=== PATIENT | female | born 1940 | race Caucasian/White ===

== ENCOUNTER 2024-03-23 11:50 | Inpatient (IN) | payer MEDICARE, OTHER, SELFPAY ==
[2024-03-23] VITALS (13 sets, daily range): BP systolic 85–156; BP diastolic 64–94; PULSE 68–96; RESP 16–22; TEMP 36.6–36.9; O2SAT 92–100; BMI 24.3; BMI 24.5
--- NOTE | 2024-03-23 11:33 | ECG_ITS ---
APPROVED REPORT Exam: Resting ECG HR:95 bpm ECG Measurements Heart Rate 95 AXES QRSd 117 QRS 14 QT 443 T 114 QTc 496 Conclusion ATRIAL FIBRILLATION LOW QRS VOLTAGE IN PRECORDIAL LEADS [QRS DEFLECTION < 1.0 mV IN CHEST LEADS] MODERATE INTRAVENTRICULAR CONDUCTION DELAY [110+ ms QRS DURATION] NONSPECIFIC ST & T-WAVE ABNORMALITY PROLONGED QT INTERVAL No STEMI Electronically signed by : ARNIE BOO, 03/24/2024 04:29:35
--- NOTE | 2024-03-23 11:52 | HMH.EDGENADL ---
Discharge Plan Disposition Chief Complaint: Abdominal Pain Prescriptions Prescriptions: No Action alprazolam [Xanax] 0.25 mg Tablet 0.25 mg PO BID potassium chloride 20 mEq Tablet,Er Particles/Crystals 20 meq PO DAILY furosemide 20 mg Tablet 20 mg PO DAILY cholecalciferol (vitamin D3) [Vitamin D3] 125 mcg (5,000 unit) Tablet 125 mcg PO DAILY Xarelto 20 mg Tablet 20 mg PO DAILY Clinical Impressions Clinical Impression: Small bowel obstruction Instructions Patient Instructions: DI for Acute Abdominal Pain Print Language Print Language: Omani Discharge ED Provider: Krystal Ghosh General Adult HPI General Chief complaint: Abdominal Pain Stated complaint: N/V, chest pain Time Seen by Provider: 03/23/24 11:52 History of Present Illness HPI narrative: Patient is a 83-year-old with past medical history significant for atrial fibrillation on Xarelto dementia and recent admission for bowel obstruction at outside hospital presents to the emergency department with nausea and vomiting. History obtained per son 2 days ago patient developed significant nausea with periumbilical pain. Patient was discharged from [facility] on 03/20 after 2-day hospitalization for a bowel obstruction using NG tube. Family was offered surgery however declined at that time. Unknown exact prior history of abdominal surgeries patient reports she has a history of stomach cancer and had the cancer removed. Son reports that at the [facility] a few years ago surgeons placed a stent in the colon unsure if it was in the colon or in the vasculature. Patient also reports a history of an appendectomy. Patient last passed gas and had a bowel movement 2 days ago. Send describes the vomit as green and inability to tolerate p.o. over the last 2 days. Pain is severe and isolated around the periumbilical location worse with any intake. No shortness of breath no chest pain no cough or congestion no dysuria no fever. Related Data Home Medications ?Medication ?Instructions ?Recorded ?Confirmed alprazolam 0.25 mg tablet (Xanax) 0.25 mg PO BID 03/23/24 03/23/24 cholecalciferol (vitamin D3) 125 125 mcg PO DAILY 03/23/24 03/23/24 mcg (5,000 unit) tablet (Vitamin D3) furosemide 20 mg tablet 20 mg PO DAILY 03/23/24 03/23/24 potassium chloride 20 mEq 20 meq PO DAILY 03/23/24 03/23/24 tablet,extended release(part/cryst) rivaroxaban 20 mg tablet (Xarelto) 20 mg PO DAILY 03/23/24 03/23/24 Allergies Allergy/AdvReac Type Severity Reaction Status Date / Time chlorhexidine Allergy Unknown Verified 03/23/24 11:57 allergy reaction codeine Allergy Unknown Verified 03/23/24 11:57 allergy reaction ofloxacin Allergy Unknown Verified 03/23/24 11:57 allergy reaction Penicillins Allergy Unknown Verified 03/23/24 11:57 allergy reaction sulfamethoxazole Allergy Unknown Verified 03/23/24 11:57 [From Bactrim] allergy reaction trimethoprim [From Bactrim] Allergy Unknown Verified 03/23/24 11:57 allergy reaction tape Allergy Unknown Uncoded 03/23/24 11:57 allergy reaction PFSH PFSH Disclaimer: The information contained in this section may have been updated after the patient was seen, as this information can be updated by other users. Medical History (Updated 03/23/24 @ 14:39 by Krystal Ghosh MD) Muscle wasting and atrophy, not elsewhere classified, multiple sites Abnormality of gait and mobility Vitamin D deficiency Dementia Anxiety Hyperlipemia History of DVT (deep vein thrombosis) Hypertension Atrial fibrillation Polyarthritis Social History Smoking Status: Never smoker alcohol intake: never current occupational status: retired Travel in the last 8 weeks: None ROS Obtained: Yes All systems reviewed & no additional complaints except as documented Physical Exam General General appearance: alert and in no apparent distress Comment: In no discomfort Head Head exam: atraumatic and normocephalic Eye Eye exam: Present PERRL and EOMI; Absent scleral icterus or jaundice ENT ENT exam: Present normal oropharynx and mucous membranes moist; Absent mucous membranes dry Neck Neck exam: Absent tenderness Chest Chest inspection: Present normal inspection and symmetric chest wall rise Respiratory Respiratory exam: Present normal lung sounds bilaterally; Absent respiratory distress Cardiovascular Cardiovascular exam: Present regular rate, irregular rhythm and other (No lower extremity edema) Abdominal Exam Abdominal exam: Present soft, distention and tenderness (Periumbilical tenderness with guarding no palpable hernia) Extremities Exam Extremities exam: Present normal inspection; Absent tenderness Back Exam Back exam: Present normal inspection; Absent tenderness Neurological Exam Neurological exam: Present alert and oriented X3 (Oriented to name not time or place) Skin Skin exam: Present warm and dry Medical Decision Making Medical Records Screening: Per USPSTF and CDC recommendations, given the prevalence of disease in our region, it is our hospital?s policy to screen for HIV and viral Hepatitis for all patients aged 18 and over and those with ongoing risk factors. Govind Inquiry Pt receiving controlled substance: No Vital Signs: 03/23/24 11:44 03/23/24 12:00 03/23/24 12:30 Temperature 98.4 F Temperature Source Oral Pulse Rate 85 92 H Pulse Rate [Right Brachial] 96 H Respiratory Rate 16 Blood Pressure 137/77 143/89 H Blood Pressure [Right Arm] 139/76 Blood Pressure Mean [Right Arm] 97 Blood Pressure Source [Right Arm] Automatic Cuff Blood Pressure Position [Right Arm] Sitting 02 Sat by Pulse Oximetry 96 98 100 Oxygen Delivery Method Nasal Cannula Room Air Nasal Cannula Oxygen Flow Rate (LPM) 2 03/23/24 13:32 03/23/24 14:00 03/23/24 14:13 Temperature Temperature Source Pulse Rate 88 68 76 Pulse Rate [Right Brachial] Respiratory Rate Blood Pressure 106/69 L 115/64 85/67 L Blood Pressure [Right Arm] Blood Pressure Mean [Right Arm] Blood Pressure Source [Right Arm] Blood Pressure Position [Right Arm] 02 Sat by Pulse Oximetry 100 100 98 Oxygen Delivery Method Nasal Cannula Nasal Cannula Oxygen Flow Rate (LPM) 03/23/24 14:15 03/23/24 14:30 Temperature Temperature Source Pulse Rate 90 78 Pulse Rate [Right Brachial] Respiratory Rate 16 16 Blood Pressure 105/88 L 122/71 Blood Pressure [Right Arm] Blood Pressure Mean [Right Arm] Blood Pressure Source [Right Arm] Blood Pressure Position [Right Arm] 02 Sat by Pulse Oximetry 100 99 Oxygen Delivery Method Nasal Cannula Nasal Cannula Oxygen Flow Rate (LPM) Lab Data Lab Results 03/23/24 11:38: WBC 10.1, RBC 3.21 L, Hgb 11.2 L, Hct 32.5 L, MCV 101.2 H, MCH 34.9 H, MCHC 34.5, RDW 14.5, Plt Count 188, MPV 9.4, Neut % (Auto) 86.1 H, Lymph % (Auto) 8.2 L, [place] % (Auto) 4.9, Eos % (Auto) 0.5, Baso % (Auto) 0.4, Neut # (Auto) 8.7 H, Lymph # (Auto) 0.8, [place] # (Auto) 0.5, Eos # (Auto) 0.1, Baso # (Auto) 0.0, Sodium 133 L, Potassium 2.6 L*, Chloride 89 L, Carbon Dioxide 39 H, Anion Gap 7.6, BUN 23 H, Creatinine 1.00, Estimated Creat Clear 44, Estimated GFR 53 L, Est GFR ( Amer) 64, Glucose 128 H, Calcium 7.9 L, Magnesium 1.2 L, Total Bilirubin 1.0, AST 40 H, ALT 19, Alkaline Phosphatase 50, C-Reactive Protein 83.7 H, Total Protein 6.3, Albumin 3.2 L, Globulin 3.1, Albumin/Globulin Ratio 1.0 L, Lipase 157 03/23/24 12:06: VBG pH 7.45 H, VBG pCO2 55.2 H, VBG pO2 47.7 H, VBG HCO3 37.7 H, VBG Total CO2 39.4 H, VBG O2 Saturation 85.0 H, VBG Base Excess 13.7 H, VBG Lactic Acid 2.1 H 03/23/24 11:38 03/23/24 11:38 Orders (Tests/Meds): ED MEDICATIONS Generic Name Dose Route Start Last Admin Trade Name Freq PRN Reason Stop Dose Admin Potassium Chloride/Water 100 mls @ 100 mls/hr 03/23/24 13:00 03/23/24 14:28 Potassium Chloride 10meq/100ml Ivpb IV 03/23/24 15:59 100 mls/hr Q1H AVA Administration Discontinued Medications Generic Name Dose Route Start Last Admin Trade Name Freq PRN Reason Stop Dose Admin Magnesium Sulfate 2 gm in 50 mls @ 50 mls/hr 03/23/24 12:48 03/23/24 13:19 Magnesium Sulfate 2gm/50ml Premix IV 03/23/24 13:47 50 mls/hr ONCE ONE Administration Iopamidol 80 ml 03/23/24 13:21 03/23/24 13:22 Iopamidol-370 (76%);100ml Bottle IV 03/23/24 13:22 80 ml ONCE ONE Administration Ondansetron HCl 4 mg 03/23/24 12:05 03/23/24 12:36 Ondansetron 4mg/2ml Vial IV 03/23/24 12:06 Not Given ONCE ONE Sodium Chloride 50 ml 03/23/24 13:21 03/23/24 13:22 0.9 % Sodium Chloride 50 Ml Vial IV 03/23/24 13:22 50 ml ONCE ONE Administration Sodium Chloride 10 ml 03/23/24 13:21 03/23/24 13:22 Sodium Chloride 0.9% 10ml Syr (Rad Only) IV 03/23/24 13:22 10 ml ONCE ONE Administration ORDERS Category Date Time Status CT angio abdomen pelvis Stat Cat Scan 03/23/24 12:01 Completed C-Reactive Protein Stat Lab 03/23/24 11:38 Completed Complete Blood Count Auto Diff AMLAB Lab 03/24/24 06:00 Ordered Complete Blood Count Auto Diff Stat Lab 03/23/24 11:38 Results Comprehensive Metabolic Panel AMLAB Lab 03/24/24 06:00 Ordered Comprehensive Metabolic Panel Stat Lab 03/23/24 11:38 Completed HIV (1&2) Antibody Rapid Stat Lab 03/23/24 14:34 Ordered Hep C Ab with Reflex to RNA Stat Lab 03/23/24 14:34 Ordered Lipase Stat Lab 03/23/24 11:38 Completed Magnesium AMLAB Lab 03/24/24 06:00 Ordered Magnesium Stat Lab 03/23/24 11:38 Completed Venous Blood Gas Stat RT 03/23/24 12:06 Completed Medical Decision Narrative: In summary, this 83-year-old female presents to the emergency department today with abdominal pain vomiting. On initial evaluation patient is hemodynamically stable in A-fib that is rate controlled saturating appropriately on room air at baseline mental status and afebrile. Differential diagnosis includes but is not limited to bowel obstruction volvulus ileus intra-abdominal abscess mesenteric ischemia. Based on these concerns, I ordered CBC CMP magnesium CRP lipase lactate EKG. ECG personally interpreted demonstrates prolonged QT atrial fibrillation rate controlled. Patient received 3 rounds of 10 mEq of potassium and 2 g of magnesium for treatment. Labs personally reviewed demonstrate hemoglobin 11.2 no leukocytosis potassium of 2.6, lactate of 2.1, magnesium of 1.[address] imaging personally interpreted demonstrate bowel obstruction with air-fluid levels within the small bowel. NG tube placed. I had an interactive discussion with general surgery who recommended admission to hospital medicine for conservative management at this time. I did interject conversation with hospital medicine recommendations to admit to their service On reassessment patient remains hemodynamically stable at baseline mental status Of note, social determinants of health include poor health literacy. Critical Care Critical Care Time Critical Care Time: No
--- NOTE | 2024-03-23 12:01 | CT_ITS ---
PROCEDURE INFORMATION: Exam: CTA Abdomen and Pelvis With Contrast Exam date and time: 03/23/2024 1:10 PM Age: 83 years old Clinical indication: Abdominal pain; Periumbilical; Additional info: Periumbilical abdominal pain TECHNIQUE: Imaging protocol: Computed tomographic angiography of the abdomen and pelvis with contrast. Exam focused on the arteries. 3D rendering (Not supervised by radiologist): MIP and/or 3D reconstructed images were created by the technologist. Radiation optimization: All CT scans at this facility use at least one of these dose optimization techniques: automated exposure control; mA and/or kV adjustment per patient size (includes targeted exams where dose is matched to clinical indication); or iterative reconstruction. Contrast material: ISOVUE 370; Contrast volume: 80 ml; Contrast route: INTRAVENOUS (IV); COMPARISON: No relevant prior studies available. FINDINGS: Aorta: No aortic aneurysm. No aortic dissection. Celiac trunk and mesenteric arteries: No occlusion or significant stenosis. Renal arteries: No occlusion or significant stenosis. Right iliac arteries: No occlusion or significant stenosis. Left iliac arteries: No occlusion or significant stenosis. Liver: No mass. Gallbladder and biliary ducts: Unremarkable. No calcified stones. No ductal dilation. Pancreas: Pancreatic atrophy. No mass. No ductal dilation. Spleen: Unremarkable. No splenomegaly. Adrenal glands: Unremarkable. No mass. Kidneys and ureters: Bilateral renal atrophy Stomach and bowel: Sutures in the rectosigmoid. Diverticulosis of the rectosigmoid. No diverticulitis. The colon is decompressed. The terminal ileum is decompressed. Most of the small bowel is dilated 4 cm with air-fluid levels consistent with high-grade small bowel obstruction. The transition point is seen in the right hemipelvis. Series 5 image 117-104. Appendix: No evidence of appendicitis. Intraperitoneal space: Unremarkable. No free air. No significant fluid collection. Lymph nodes: Unremarkable. No enlarged lymph nodes. Urinary bladder: Unremarkable. No mass. Reproductive: Unremarkable as visualized. Bones/joints: No fracture Soft tissues: Unremarkable. IMPRESSION: The colon is decompressed. The terminal ileum is decompressed. Most of the small bowel is dilated 4 cm with air-fluid levels consistent with high-grade small bowel obstruction. The transition point is seen in the right hemipelvis. Series 5 image 117-104.
--- NOTE | 2024-03-23 12:07 | PC.NURSE ---
call made to lab to hold green top for VBG. call made to respiratory to go picker and packer VBG from lab.
[2024-03-23 12:13] LABS: VBG Base Excess 13.7 mmol/L (-2.4-2.3); VBG HCO3 37.7 mmol/L (23-30); VBG PH 7.45 mmol/L (7.31-7.41); VBG PO2 47.7 mmol/L (28-40); VBG Total CO2 39.4 mmol/L (23-27)
[2024-03-23 12:15] LABS: VBG PCO2 55.2 mmol/L (35-51)
[2024-03-23 12:16] LABS: Lactate Venous 2.1 mmol/L (0.4-2.0)
[2024-03-23 12:25] LABS: Basophils % 0.4 % (0.1-2.0); Eosinophils # 0.1 K/mm3 (0.0-0.4); Eosinophils % 0.5 % (0.1-12.0); Hematocrit 32.5 % (37.0-47.0); Hemoglobin 11.2 g/dL (12.2-16.2); Lymphocytes # 0.8 K/mm3 (0.7-4.5); Lymphocytes % 8.2 % (10-50); Mean Corpuscular HGB Conc 34.5 g/dL (31.8-35.4); Mean Corpuscular Hemoglobin 34.9 pg (27.0-31.2); Mean Corpuscular Volume 101.2 fl (81-99); Mean Platelet Volume 9.4 fl (7.4-10.4); Monocytes # 0.5 K/mm3 (0.1-1.0); Monocytes % 4.9 % (1.7-9.3); Neutrophils # 8.7 K/mm3 (1.8-7.8); Neutrophils % 86.1 % (37.0-80.0); Platelet Count 188 K/mm3 (142-424); Red Blood Count 3.21 M/mm3 (4.20-5.40); Red Cell Distribution Width 14.5 % (11.5-17.5); White Blood Count 10.1 K/mm3 (4.8-10.8)
[2024-03-23 12:29] LABS: Albumin Level 3.2 g/dl (3.5-5.0); Chloride 89 mmol/L (98-107); Sodium 133 mmol/L (136-145)
[2024-03-23 12:31] LABS: Alanine Aminotransferase 19 U/L (12-78); Anion Gap 7.6 mEq/L (5-15); Aspartate Amino Transferase 40 U/L (14-36); Blood Urea Nitrogen 23 mg/dl (7-17); Carbon Dioxide 39 mmol/L (22.0-30.0); Creatinine Clearance Estimated 44 mL/min (50-200); Estimated Glomerular Filt Rate 53 ml/min (>60); GFR (African American) 64 ML/MIN (>60)
[2024-03-23 12:32] LABS: Alkaline Phosphatase 50 U/L (38-126); Calcium 7.9 mg/dl (8.4-10.2); Globulin 3.1 g/dL (1.3-3.2); Glucose 128 mg/dl (74-100); Lipase 157 U/L (23-300); Magnesium 1.2 mg/dl (1.6-2.3); Total Protein,Serum 6.3 g/dl (6.3-8.2)
[2024-03-23 12:34] LABS: MANUAL DIFFERENTIAL MANUAL DIFFERENTIAL (MANUAL DIFF)
[2024-03-23 12:37] LABS: C-Reactive Protein 83.7 mg/L (0-4)
[2024-03-23 12:46] LABS: Potassium 2.6 mmoL/L (3.5-5.1)
--- NOTE | 2024-03-23 13:17 | PC.NURSE ---
pt back to room from ct
[2024-03-23] MEDS: MAGNESIUM SULFATE IN WATER 2 GM/50 ML PIGGYBACK IV ×2 (13:19→16:36)
[2024-03-23] MEDS: KCl 10mEq/100ml 100 ML 100 MEQ IV ×3 (13:19→16:35)
[2024-03-23] MEDS: SODIUM CHLORIDE 0.9% 10ML SYR (RAD ONLY) 10 ML IV (13:22)
[2024-03-23] MEDS: 0.9 % SODIUM CHLORIDE 50 ML VIAL IV (13:22)
[2024-03-23] MEDS: IOPAMIDOL-370 (76%);100ML BOTTLE 80 ML IV (13:22)
--- NOTE | 2024-03-23 14:23 | PC.NURSE ---
General surgeon being paged to speak with irena chávez
--- NOTE | 2024-03-23 14:24 | PC.NURSE ---
speaking with er at this time
--- NOTE | 2024-03-23 14:38 | PC.NURSE ---
house mover supervisor notified of bed admission.
--- NOTE | 2024-03-23 14:39 | P.HP_ITS ---
History of Present Illness *Admission Date: 03/23/24 *Reason for visit:: nausea and vomiting *History of present illness: Thien is an 83-year-old female with dementia and anxiety and coagulate and who presented to the ER because of concern for bowel obstruction. Recently admitted to [facility] last week for 2 days due to bowel obstruction. Was decompressed with NG, surgery offered but family declined at that time. History of previous abdominal surgeries. Returned back to her nursing facility and developed recurrent nausea, vomiting, periumbilical pain. Been worse over the past 2 days. Afebrile. Stable on room air. On arrival today, found to have elevated CRP, electrolyte disturbances and mild dehydration. CT obtained showing diffuse distended small bowel loops with significant fluid and definitive transition point. Surgery consulted, NG was placed in the ER. Medic ine consulted for admission and further management. Per review, patient was having bilious emesis. Unable to tolerate p.o. medications or nutrition. Pain severe around her umbilicus. Afebrile. Patient pleasant but unable to give much history other than pain. Feeling better since placement of NG. [facility] Disclaimer: The information contained in this section may have been updated after the patient was seen, as this information can be updated by other users. Medical History Muscle wasting and atrophy, not elsewhere classified, multiple sites Abnormality of gait and mobility Vitamin D deficiency Dementia Anxiety Hyperlipemia History of DVT (deep vein thrombosis) Hypertension Atrial fibrillation Polyarthritis Social History Smoking Status: Never smoker alcohol intake: never current occupational status: retired Travel in the last 8 weeks: None Review of Systems Review of Systems Review of systems (narrative): 14 point review of systems performed, pertinent positives and negatives as per HPI Meds Home Medications and Allergies Home Medications ?Medication ?Instructions ?Recorded ?Confirmed ?Type alprazolam 0.25 mg tablet (Xanax) 0.25 mg PO TIDP PRN Anxiety 03/23/24 03/23/24 History atorvastatin 40 mg tablet 40 mg PO HS 03/23/24 03/23/24 History cholecalciferol (vitamin D3) 125 125 mcg PO DAILY 03/23/24 03/23/24 History mcg (5,000 unit) tablet (Vitamin D3) diltiazem HCl 240 mg 240 mg PO DAILY 03/23/24 03/23/24 History capsule,extended release 24 hr furosemide 20 mg tablet 20 mg PO DAILY 03/23/24 03/23/24 History potassium chloride 20 mEq 20 meq PO DAILY 03/23/24 03/23/24 History tablet,extended release(part/cryst) rivaroxaban 15 mg tablet (Xarelto) 15 mg PO QPMWITHMEAL 03/23/24 03/23/24 History New Prescriptions to Start Prescriptions: Allergies Allergy/AdvReac Type Severity Reaction Status Date / Time chlorhexidine Allergy Unknown Verified 03/23/24 11:57 allergy reaction codeine Allergy Unknown Verified 03/23/24 11:57 allergy reaction ofloxacin Allergy Unknown Verified 03/23/24 11:57 allergy reaction Penicillins Allergy Unknown Verified 03/23/24 11:57 allergy reaction sulfamethoxazole Allergy Unknown Verified 03/23/24 11:57 [From Bactrim] allergy reaction trimethoprim [From Bactrim] Allergy Unknown Verified 03/23/24 11:57 allergy reaction tape Allergy Unknown Uncoded 03/23/24 11:57 allergy reaction Exam Data for Last 24 hours Vital signs and Labs for Last 24 Hours: Temp Pulse Resp BP Pulse Ox O2 Del Method O2 Flow Rate 98.4 F 78 16 122/71 99 Nasal Cannula 2 03/23/24 11:44 03/23/24 14:30 03/23/24 14:30 03/23/24 14:30 03/23/24 14:30 03/23/24 14:30 03/23/24 11:44 Laboratory Results - last 24 hr 03/23/24 11:38: WBC 10.1, RBC 3.21 L, Hgb 11.2 L, Hct 32.5 L, MCV 101.2 H, MCH 34.9 H, MCHC 34.5, RDW 14.5, Plt Count 188, MPV 9.4, Neut % (Auto) 86.1 H, Lymph % (Auto) 8.2 L, [place] % (Auto) 4.9, Eos % (Auto) 0.5, Baso % (Auto) 0.4, Neut # (Auto) 8.7 H, Lymph # (Auto) 0.8, [place] # (Auto) 0.5, Eos # (Auto) 0.1, Baso # (Auto) 0.0, Sodium 133 L, Potassium 2.6 L*, Chloride 89 L, Carbon Dioxide 39 H, Anion Gap 7.6, BUN 23 H, Creatinine 1.00, Estimated Creat Clear 44, Estimated GFR 53 L, Est GFR ( Amer) 64, Glucose 128 H, Calcium 7.9 L, Magnesium 1.2 L, Total Bilirubin 1.0, AST 40 H, ALT 19, Alkaline Phosphatase 50, C-Reactive Protein 83.7 H, Total Protein 6.3, Albumin 3.2 L, Globulin 3.1, Albumin/Globulin Ratio 1.0 L, Lipase 157 03/23/24 12:06: VBG pH 7.45 H, VBG pCO2 55.2 H, VBG pO2 47.7 H, VBG HCO3 37.7 H, VBG Total CO2 39.4 H, VBG O2 Saturation 85.0 H, VBG Base Excess 13.7 H, VBG Lactic Acid 2.1 H I & O for Last 24 hours: Intake & Output 03/20/24 03/21/24 03/22/24 03/23/24 23:59 23:59 23:59 23:59 Weight 66.224 kg Constitutional Constitutional: mild distress, average body habitus, chronically ill appearing and cooperative *Routine HEENT Exam Head: Present normocephalic Eye: Present EOMI and PERRL ENT: Present mucous membranes moist Comments: NG in right nare *Routine Neck Exam Neck: Present supple; Absent lymphadenopathy *Routine Respiratory Exam Respiratory: Present CTA bilaterally; Absent rhonchi, wheezes or crackles *Routine Cardiovascular Exam Cardiovascular: Present RRR *Routine Abdominal Exam Abdominal: Present soft, tenderness (Diffuse) and distended; Absent normoactive bowel sounds Comments: Absent bowel sounds *Routine Rectal Exam Rectal:: deferred *Routine Genitalia Exam Genitalia:: deferred *Routine Extremities Exam Extremities: Absent cyanosis, clubbing or edema *Routine Skin Exam Skin: Present warm; Absent rash *Routine Neurological Exam Neurological: Present alert and moving all extremities; Absent altered mental status Comments: Oriented to self only. Answers questions appropriately. Is disoriented to where she is. Assessment and Plan *Assessment and plan (1) Small bowel obstruction: Problem Comment: Ms. Neumann has a small bowel obstruction on exam, history, and CT scan. Since she has just failed nonoperative management she is at high risk for progressing to an operation. I discussed her case with her son who really wants to avoid an operation if we can given her frailty and dementia. I agree with him completely. I will attempt nonoperative management with NG tube decompression and n.p.o. status. She is at high risk for surgery given her frailty and advanced age with dementia. Status: Acute Category: Medical Code(s): K56.609 - Unspecified intestinal obstruction, unspecified as to partial versus complete obstruction (2) Hypokalemia: Status: Acute Category: Medical Code(s): E87.6 - Hypokalemia (3) Hypochloremia: Status: Acute Category: Medical Code(s): E87.8 - Other disorders of electrolyte and fluid balance, not elsewhere classified (4) Hypomagnesemia: Status: Acute Category: Medical Code(s): E83.42 - Hypomagnesemia (5) Dementia: Status: Chronic Category: Medical Code(s): F03.90 - Unspecified dementia, unspecified severity, without behavioral disturbance, psychotic disturbance, mood disturbance, and anxiety (6) Hypertension: Status: Acute Qualifiers: Hypertension type: primary hypertension Qualified Code(s): I10 - Essential (primary) hypertension Category: Medical Code(s): I10 - Essential (primary) hypertension (7) Atrial fibrillation: Status: Chronic Qualifiers: Atrial fibrillation type: longstanding persistent Qualified Code(s): I48.11 - Longstanding persistent atrial fibrillation Category: Medical Code(s): I48.91 - Unspecified atrial fibrillation (8) Anxiety: Status: Chronic Category: Medical Code(s): F41.9 - Anxiety disorder, unspecified (9) Chronic anticoagulation: Status: Chronic Category: Medical Code(s): Z79.01 - intermodal customer service (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 History of previous abdominal surgeries. Presents with small bowel obstruction. NG placed in the ER. Discussed case with ER physician, request admission for medical management and surgical evaluation. I agreed to admit for further treatment. High risk for surgery based on her comorbidities. Hemodynamically stable. Necessitating inpatient treatment. Problems addressed as follows: Small bowel obstruction -High-grade obstruction on personal review of CT with diffuse small bowel dilation and significant fluid. Distended stomach. Definitive transition zone. -NG to low wall suction -Surgery consulted, prescient their recommendations and assistance. Continue NG to low wall suction. Conservative management for now per discussion. Will attempt to avoid surgery given age, comorbidities, and risk. -- ASA 2(E); Aguirre perioperative CRISPIN 0.9%; RCRI 1, 6% mace; all though surgical intervention is not ideal given patient's underlying cognitive impairment, anticoagulation, A-fib, would recommend bridging with Lovenox and holding her NOAC. Appears rate controlled at this time with normal blood pressure and on room air. Optimized for surgery if deemed emergent. Would recommend preoperative EKG. EKG obtained today in the ER shows A-fib but no ischemic changes. Hypokalemia Hypomagnesemia Hypochloremia -Replacing electrolytes with IV fluids. Continue magnesium IV, potassium IV, maintenance fluids with NS +40 of KCl at 100 cc an hour. -Repeat CBC, CMP, magnesium ordered for the morning. -Sodium 133, chloride 89. Potassium 2.6. Magnesium 1.2. -Kidney function appears stable with BUN 23, creatinine 1.0. -White count normal at 10, mild anemia with hemoglobin of 11 A-fib 1 currently rate. Will consider IV metoprolol or diltiazem as needed if heart rate becomes fast/greater than 120. -Holding anticoagulation Anxiety: Initiate lorazepam 0.5 mg IV as needed for severe anxiety every 8 hours. Monitor for side effects/toxicity Holding oral medications including Lipitor, vitamin D, Lasix, potassium. N.p.o. Holding anticoagulation in the setting of possible surgical intervention Further CODE STATUS discussion with family
--- NOTE | 2024-03-23 14:51 | PC.NURSE ---
general surgeon at
--- NOTE | 2024-03-23 14:58 | XR_ITS ---
PROCEDURE INFORMATION: Exam: XR Chest Exam date and time: 03/23/2024 3:03 PM Age: 83 years old Clinical indication: Device placement; Ng tube; Additional info: Ng placement TECHNIQUE: Imaging protocol: Radiologic exam of the chest. Views: 1 view. COMPARISON: CT ANGIO ABDOMEN PELVIS 03/23/2024 1:10 PM FINDINGS: Tubes, catheters and devices: An enteric feeding tube is present, with its tip located in the stomach in good position.. Lungs: Unremarkable. No consolidation. Pleural spaces: Unremarkable. No pleural effusion. No pneumothorax. Heart/Mediastinum: Cardiomegaly Bones/joints: Unremarkable. Other findings: Patient is rotated to the left IMPRESSION: An enteric feeding tube is present, with its tip located in the stomach in good position..
--- NOTE | 2024-03-23 15:02 | P.CONS_ITS ---
History of Present Illness *Admission Date: 03/23/24 *Reason for visit:: Abdominal pain *History of present illness: Mrs. Neumann is an 83-year-old lady presents to the emergency department with nausea vomiting and abdominal pain. She was recently admitted in [place] with a small bowel obstruction. She is present with her son and he states that she has severe dementia. She is currently in a retirement. She had her first real meal after returning to the retirement yesterday evening and shortly thereafter developed a return of her abdominal pain and nausea and vomiting. She has a history of colon cancer and a colectomy about 6 years ago. [facility] Disclaimer: The information contained in this section may have been updated after the patient was seen, as this information can be updated by other users. Medical History (Updated 03/23/24 @ 15:06 by Audie Dick MD) Muscle wasting and atrophy, not elsewhere classified, multiple sites Abnormality of gait and mobility Vitamin D deficiency Dementia Anxiety Hyperlipemia History of DVT (deep vein thrombosis) Hypertension Atrial fibrillation Polyarthritis Social History (Updated 03/23/24 @ 14:39 by Krystal Ghosh MD) Smoking Status: Never smoker alcohol intake: never current occupational status: retired Travel in the last 8 weeks: None Meds Home Medications and Allergies Home Medications ?Medication ?Instructions ?Recorded ?Confirmed ?Type alprazolam 0.25 mg tablet (Xanax) 0.25 mg PO BID 03/23/24 03/23/24 History cholecalciferol (vitamin D3) 125 125 mcg PO DAILY 03/23/24 03/23/24 History mcg (5,000 unit) tablet (Vitamin D3) furosemide 20 mg tablet 20 mg PO DAILY 03/23/24 03/23/24 History potassium chloride 20 mEq 20 meq PO DAILY 03/23/24 03/23/24 History tablet,extended release(part/cryst) rivaroxaban 20 mg tablet (Xarelto) 20 mg PO DAILY 03/23/24 03/23/24 History New Prescriptions to Start Prescriptions: Allergies Allergy/AdvReac Type Severity Reaction Status Date / Time chlorhexidine Allergy Unknown Verified 03/23/24 11:57 allergy reaction codeine Allergy Unknown Verified 03/23/24 11:57 allergy reaction ofloxacin Allergy Unknown Verified 03/23/24 11:57 allergy reaction Penicillins Allergy Unknown Verified 03/23/24 11:57 allergy reaction sulfamethoxazole Allergy Unknown Verified 03/23/24 11:57 [From Bactrim] allergy reaction trimethoprim [From Bactrim] Allergy Unknown Verified 03/23/24 11:57 allergy reaction tape Allergy Unknown Uncoded 03/23/24 11:57 allergy reaction Exam (Inpt) Vital signs and Labs for Last 24 Hours: Temp Pulse Resp BP Pulse Ox O2 Del Method O2 Flow Rate 98.4 F 78 16 122/71 99 Nasal Cannula 2 03/23/24 11:44 03/23/24 14:30 03/23/24 14:30 03/23/24 14:30 03/23/24 14:30 03/23/24 14:30 03/23/24 11:44 Laboratory Results - last 24 hr 03/23/24 11:38: WBC 10.1, RBC 3.21 L, Hgb 11.2 L, Hct 32.5 L, MCV 101.2 H, MCH 34.9 H, MCHC 34.5, RDW 14.5, Plt Count 188, MPV 9.4, Neut % (Auto) 86.1 H, Lymph % (Auto) 8.2 L, [place] % (Auto) 4.9, Eos % (Auto) 0.5, Baso % (Auto) 0.4, Neut # (Auto) 8.7 H, Lymph # (Auto) 0.8, [place] # (Auto) 0.5, Eos # (Auto) 0.1, Baso # (Auto) 0.0, Sodium 133 L, Potassium 2.6 L*, Chloride 89 L, Carbon Dioxide 39 H, Anion Gap 7.6, BUN 23 H, Creatinine 1.00, Estimated Creat Clear 44, Estimated GFR 53 L, Est GFR ( Amer) 64, Glucose 128 H, Calcium 7.9 L, Magnesium 1.2 L, Total Bilirubin 1.0, AST 40 H, ALT 19, Alkaline Phosphatase 50, C-Reactive Protein 83.7 H, Total Protein 6.3, Albumin 3.2 L, Globulin 3.1, Albumin/Globulin Ratio 1.0 L, Lipase 157 03/23/24 12:06: VBG pH 7.45 H, VBG pCO2 55.2 H, VBG pO2 47.7 H, VBG HCO3 37.7 H, VBG Total CO2 39.4 H, VBG O2 Saturation 85.0 H, VBG Base Excess 13.7 H, VBG Lactic Acid 2.1 H I & O for Labs for Last 24 Hours: Intake & Output 03/20/24 03/21/24 03/22/24 03/23/24 23:59 23:59 23:59 23:59 Weight 146 lb Constitutional: mild distress and chronically ill appearing Head: Present normocephalic and atraumatic Neck: Present normal inspection Cardiac: Present Reg Rate and Rhythm GI: Present soft, distention and tenderness (Tenderness on the right hemiabdomen) Results Labs 03/23/24 11:38 03/23/24 11:38 Labs: Laboratory Results - last 24 hr 03/23/24 11:38: WBC 10.1, RBC 3.21 L, Hgb 11.2 L, Hct 32.5 L, MCV 101.2 H, MCH 34.9 H, MCHC 34.5, RDW 14.5, Plt Count 188, MPV 9.4, Neut % (Auto) 86.1 H, Lymph % (Auto) 8.2 L, [place] % (Auto) 4.9, Eos % (Auto) 0.5, Baso % (Auto) 0.4, Neut # (Auto) 8.7 H, Lymph # (Auto) 0.8, [place] # (Auto) 0.5, Eos # (Auto) 0.1, Baso # (Auto) 0.0, Sodium 133 L, Potassium 2.6 L*, Chloride 89 L, Carbon Dioxide 39 H, Anion Gap 7.6, BUN 23 H, Creatinine 1.00, Estimated Creat Clear 44, Estimated GFR 53 L, Est GFR ( Amer) 64, Glucose 128 H, Calcium 7.9 L, Magnesium 1.2 L, Total Bilirubin 1.0, AST 40 H, ALT 19, Alkaline Phosphatase 50, C-Reactive Protein 83.7 H, Total Protein 6.3, Albumin 3.2 L, Globulin 3.1, Albumin/Globulin Ratio 1.0 L, Lipase 157 03/23/24 12:06: VBG pH 7.45 H, VBG pCO2 55.2 H, VBG pO2 47.7 H, VBG HCO3 37.7 H, VBG Total CO2 39.4 H, VBG O2 Saturation 85.0 H, VBG Base Excess 13.7 H, VBG Lactic Acid 2.[address] scan - abdomen: report reviewed Assessment and Plan *Assessment and plan (1) Small bowel obstruction: Problem Comment: Ms. Neumann has a small bowel obstruction on exam, history, and CT scan. Since she has just failed nonoperative management she is at high risk for progressing to an operation. I discussed her case with her son who really wants to avoid an operation if we can given her frailty and dementia. I agree with him completely. I will attempt nonoperative management with NG tube decompression and n.p.o. status. She is at high risk for surgery given her frailty and advanced age with dementia. Status: Acute Category: Medical Code(s): K56.609 - Unspecified intestinal obstruction, unspecified as to partial versus complete obstruction (2) Dementia: Status: Chronic Category: Medical Code(s): F03.90 - Unspecified dementia, unspecified severity, without behavioral disturbance, psychotic disturbance, mood disturbance, and anxiety (3) Atrial fibrillation: Status: Chronic Qualifiers: Atrial fibrillation type: longstanding persistent Qualified Code(s): I 48.11 - Longstanding persistent atrial fibrillation Category: Medical Code(s): I48.91 - Unspecified atrial fibrillation (4) Hypertension: Status: Acute Qualifiers: Hypertension type: primary hypertension Qualified Code(s): I10 - Essential (primary) hypertension Category: Medical Code(s): I10 - Essential (primary) hypertension
[2024-03-23 15:17] LABS: Eosinophils % 1 % (0-3); Lymphocytes % 5 % (10-50); Monocytes % 3 % (2-9); Neutrophils % 91 % (42-76); Platelet Estimate Normal; Total Cells Counted 100
[2024-03-23 15:18] LABS: Anisocytosis 1+; Macrocytosis 1+; Microcytosis 1+; Ovalocytes 1+; Poikilocytosis 1+
--- NOTE | 2024-03-23 15:48 | PC.NURSE ---
arrived by stretcher from ED
[2024-03-23 16:14] LABS: Reflex Lactic Add Lactic Reflex
--- NOTE | 2024-03-23 16:19 | PC.NURSE ---
per magy, okay to have ice chips, nothing else. VO for BARBY
--- NOTE | 2024-03-23 16:20 | XR_ITS ---
PROCEDURE INFORMATION: Exam: XR Abdomen Exam date and time: 03/23/2024 4:51 PM Age: 83 years old Clinical indication: Device placement; Gi device; Nasogastric tube; Additional info: Ng placement TECHNIQUE: Imaging protocol: Radiologic exam of the abdomen. Views: Frontal supine view of the abdomen. 1 View. COMPARISON: CT ANGIO ABDOMEN PELVIS 03/23/2024 1:10 PM FINDINGS: Tubes, catheters and devices: An enteric feeding tube is present, with its tip located in the stomach in good position.. Gastrointestinal tract: Multiple loops of dilated bowel may represent obstruction or ileus. Bones/joints: Unremarkable. IMPRESSION: 1. An enteric feeding tube is present, with its tip located in the stomach in good position.. 2. Multiple loops of dilated bowel may represent obstruction or ileus.
[2024-03-23] MEDS: 0.9% NaCl w/40mEq KCL 1,000 ML 100 ML IV (16:35)
[2024-03-23 16:48] LABS: Lactic Acid Follow Up (RFLX 1) 0.9 mmol/L (0.7-2.1)
--- NOTE | 2024-03-23 18:00 | PC.NURSE ---
pt is alert to self and thinks she is at home, asking this nurse to make sure the doors are locked so she can go to bed. bed alarm on for pt safety. reminders not to touch ng tube or get up by herself is wrote on the white board and she will frequently look up there and read it out loud. pt was anxious when she first got to the floor and asking for her never pills (evans notified) but calmed down once settled and dimming the lights. the pt is currently asleep and resting well. when pt arrived to the floor, ng was at 70 cm to the rt nare and not having output once on suction and after flushing the tube. notified magy. KUB obtained and ng pulled back to 62cm to rt nare (evans aware). ng draining well with 100ml output so far.
[2024-03-24] VITALS: BP 143/74; PULSE 102; RESP 16; TEMP 36.4; O2SAT 95
[2024-03-24] MEDS: 0.9% NaCl w/40mEq KCL 1,000 ML 100 ML IV (03:29)
[2024-03-24 04:00] VITALS: BMI 25.5
[2024-03-24 06:40] LABS: Basophils % 0.3 % (0.1-2.0); Eosinophils # 0.1 K/mm3 (0.0-0.4); Eosinophils % 0.8 % (0.1-12.0); Hematocrit 30.8 % (37.0-47.0); Hemoglobin 10.4 g/dL (12.2-16.2); Lymphocytes # 0.6 K/mm3 (0.7-4.5); Lymphocytes % 8.4 % (10-50); Mean Corpuscular HGB Conc 33.7 g/dL (31.8-35.4); Mean Corpuscular Hemoglobin 34.9 pg (27.0-31.2); Mean Corpuscular Volume 103.8 fl (81-99); Mean Platelet Volume 8.8 fl (7.4-10.4); Monocytes # 0.4 K/mm3 (0.1-1.0); Monocytes % 5.4 % (1.7-9.3); Neutrophils # 6.4 K/mm3 (1.8-7.8); Neutrophils % 85.1 % (37.0-80.0); Platelet Count 191 K/mm3 (142-424); Red Blood Count 2.96 M/mm3 (4.20-5.40); Red Cell Distribution Width 14.4 % (11.5-17.5); White Blood Count 7.5 K/mm3 (4.8-10.8)
[2024-03-24 07:02] LABS: MANUAL DIFFERENTIAL MANUAL DIFFERENTIAL (MANUAL DIFF)
[2024-03-24 07:16] LABS: Albumin Level 2.6 g/dl (3.5-5.0); Chloride 97 mmol/L (98-107)
[2024-03-24 07:17] LABS: Potassium 3.8 mmoL/L (3.5-5.1); Sodium 135 mmol/L (136-145)
[2024-03-24 07:19] LABS: Alanine Aminotransferase 15 U/L (12-78); Alkaline Phosphatase 47 U/L (38-126); Anion Gap 6.8 mEq/L (5-15); Aspartate Amino Transferase 29 U/L (14-36); Bilirubin,Total 0.6 mg/dl (0.2-1.3); Blood Urea Nitrogen 19 mg/dl (7-17); Calcium 7.4 mg/dl (8.4-10.2); Carbon Dioxide 35 mmol/L (22.0-30.0); Creatinine Clearance Estimated 46 mL/min (50-200); Estimated Glomerular Filt Rate 80 ml/min (>60); GFR (African American) 96 ML/MIN (>60); Globulin 2.7 g/dL (1.3-3.2); Glucose 109 mg/dl (74-100); Total Protein,Serum 5.3 g/dl (6.3-8.2)
[2024-03-24 07:20] LABS: Magnesium 1.9 mg/dl (1.6-2.3)
[2024-03-24 08:00] VITALS: BP 155/79; PULSE 90; RESP 18; TEMP 36.4; O2SAT 98
[2024-03-24 10:01] LABS: Lymphocytes % 16 % (10-50); Macrocytosis 1+; Monocytes % 3 % (2-9); Neutrophils % 81 % (42-76); Platelet Estimate Normal; Total Cells Counted 100
--- NOTE | 2024-03-24 10:48 | P.CONPHA_ITS ---
Pharmacy Intervention Comments: MEDICATION RECONCILIATION COMPLETE USING MAR FROM [facility].
--- NOTE | 2024-03-24 10:48 | HMH.PHAINT1 ---
Pharmacy Intervention Comments: MEDICATION RECONCILIATION COMPLETE USING MAR FROM [facility].
[2024-03-24 11:22] LABS: HIV (1&2) Antibody Rapid NONREACTIVE (NONREACTIVE)
--- NOTE | 2024-03-24 11:50 | EXP.SURG.PN ---
Subjective Patient reports: no new complaints and feels better Exam Data for Last 24 hours Vital signs and Labs for Last 24 Hours: Temp Pulse Resp BP Pulse Ox O2 Del Method O2 Flow Rate 97.6 F 90 18 155/79 H 98 Nasal Cannula 1 03/24/24 08:00 03/24/24 08:00 03/24/24 08:00 03/24/24 08:00 03/24/24 08:00 03/24/24 10:56 03/24/24 10:56 Laboratory Results - last 24 hr 03/23/24 06:20: HIV 1&2 Antibody Rapid Nonreactive 03/23/24 11:38: WBC 10.1, RBC 3.21 L, Hgb 11.2 L, Hct 32.5 L, MCV 101.2 H, MCH 34.9 H, MCHC 34.5, RDW 14.5, Plt Count 188, MPV 9.4, Neut % (Auto) 86.1 H, Lymph % (Auto) 8.2 L, [place] % (Auto) 4.9, Eos % (Auto) 0.5, Baso % (Auto) 0.4, Neut # (Auto) 8.7 H, Lymph # (Auto) 0.8, [place] # (Auto) 0.5, Eos # (Auto) 0.1, Baso # (Auto) 0.0, Total Counted 100, Neutrophils % (Manual) 91 H, Lymphocytes % (Manual) 5 L, Monocytes % (Manual) 3, Eosinophils % (Manual) 1, Platelet Estimate Normal, Poikilocytosis 1+, Anisocytosis 1+, Microcytosis 1+, Macrocytosis 1+, Ovalocytes 1+, Sodium 133 L, Potassium 2.6 L*, Chloride 89 L, Carbon Dioxide 39 H, Anion Gap 7.6, BUN 23 H, Creatinine 1.00, Estimated Creat Clear 44, Estimated GFR 53 L, Est GFR ( Amer) 64, Glucose 128 H, Calcium 7.9 L, Magnesium 1.2 L, Total Bilirubin 1.0, AST 40 H, ALT 19, Alkaline Phosphatase 50, C-Reactive Protein 83.7 H, Total Protein 6.3, Albumin 3.2 L, Globulin 3.1, Albumin/Globulin Ratio 1.0 L, Lipase 157 03/23/24 12:06: VBG pH 7.45 H, VBG pCO2 55.2 H, VBG pO2 47.7 H, VBG HCO3 37.7 H, VBG Total CO2 39.4 H, VBG O2 Saturation 85.0 H, VBG Base Excess 13.7 H, VBG Lactic Acid 2.1 H 03/23/24 16:26: Lactate 0.9 03/24/24 06:20: WBC 7.5 D, RBC 2.96 L, Hgb 10.4 L, Hct 30.8 L, MCV 103.8 H, MCH 34.9 H, MCHC 33.7, RDW 14.4, Plt Count 191, MPV 8.8, Neut % (Auto) 85.1 H, Lymph % (Auto) 8.4 L, [place] % (Auto) 5.4, Eos % (Auto) 0.8, Baso % (Auto) 0.3, Neut # (Auto) 6.4, Lymph # (Auto) 0.6 L, [place] # (Auto) 0.4, Eos # (Auto) 0.1, Baso # (Auto) 0.0, Total Counted 100, Neutrophils % (Manual) 81 H, Lymphocytes % (Manual) 16, Monocytes % (Manual) 3, Platelet Estimate Normal, Macrocytosis 1+, Sodium 135 L, Potassium 3.8 D, Chloride 97 L, Carbon Dioxide 35 H, Anion Gap 6.8, BUN 19 H, Creatinine 0.70 D, Estimated Creat Clear 46, Estimated GFR 80, Est GFR ( Amer) 96 D, Glucose 109 H, Calcium 7.4 L, Magnesium 1.9 D, Total Bilirubin 0.6, AST 29 D, ALT 15, Alkaline Phosphatase 47, Total Protein 5.3 L, Albumin 2.6 L D, Globulin 2.7, Albumin/Globulin Ratio 1.0 L I & O for Last 24 hours: Intake & Output 03/21/24 03/22/24 03/23/24 03/24/24 23:59 23:59 23:59 23:59 Intake Total 350 / 553 1291 / 1291 Output Total 450 / 450 1150 / 1150 Balance -100 / 103 141 / 141 Weight 147 lb 2 oz 153 lb 6.4 oz *Routine Abdominal Exam Abdominal: Present soft; Absent tenderness or distended Progress Note: A&P Assessment and plan (1) Small bowel obstruction: Problem details: No gas yet but her exam has greatly improved. I will continue a nonoperative trial for 24 more hours. She will likely need a full liquid diet for a couple of weeks to prevent relapse should she improve without surgery. Status: Acute (2) Hypokalemia: Status: Acute (3) Hypochloremia: Status: Acute (4) Hypomagnesemia: Status: Acute (5) Dementia: Status: Chronic (6) Hypertension: Status: Acute (7) Atrial fibrillation: Status: Chronic (8) Anxiety: Status: Chronic (9) Chronic anticoagulation: Status: Chronic
[2024-03-24] MEDS: LORazepam 2MG/ML VIAL 0.5 MG IV (12:13)
--- NOTE | 2024-03-24 13:44 | P.PN_ITS ---
Subjective *Date: 03/24/24 *Time: 17:48 Interval history: Wearing a liter of oxygen for comfort. No nausea or vomiting. Belly pain doing better. No bowel movement or gas. Medical Exam Vital signs and Labs for Last 24 Hours: Vital Signs Temp Pulse Pulse Resp BP BP Pulse Ox 03/24/24 12:52 03/24/24 10:56 03/24/24 08:00 97.6 F 90 18 155/79 H 98 03/24/24 07:49 03/24/24 07:29 03/24/24 06:37 03/24/24 05:00 03/24/24 02:52 03/24/24 01:00 03/24/24 00:00 97.5 F L 102 H 16 143/74 H 95 03/23/24 23:00 03/23/24 21:00 03/23/24 20:00 98.4 F 90 16 156/81 H 96 03/23/24 19:50 03/23/24 18:26 03/23/24 18:10 03/23/24 17:00 03/23/24 16:00 97.8 F 87 18 127/69 92 L 03/23/24 15:30 98.4 F 90 22 144/76 H 03/23/24 15:29 82 19 152/94 H 96 03/23/24 15:01 91 H 21 128/69 96 03/23/24 15:00 03/23/24 14:30 78 16 122/71 99 03/23/24 14:15 90 16 105/88 L 100 03/23/24 14:13 76 85/67 L 98 03/23/24 14:00 68 115/64 100 O2 Del Method O2 Flow Rate 03/24/24 12:52 Nasal Cannula 1 03/24/24 10:56 Nasal Cannula 1 03/24/24 08:00 Nasal Cannula 1 03/24/24 07:49 Nasal Cannula 1 03/24/24 07:29 Room Air 03/24/24 06:37 Nasal Cannula 1 03/24/24 05:00 Nasal Cannula 1 03/24/24 02:52 Nasal Cannula 1 03/24/24 01:00 Nasal Cannula 1 03/24/24 00:00 Room Air 03/23/24 23:00 Nasal Cannula 1 03/23/24 21:00 Nasal Cannula 2 03/23/24 20:00 Nasal Cannula 2 03/23/24 19:50 Nasal Cannula 2 03/23/24 18:26 Nasal Cannula 2 03/23/24 18:10 Nasal Cannula 2 03/23/24 17:00 Nasal Cannula 2 03/23/24 16:00 Nasal Cannula 2 03/23/24 15:30 Nasal Cannula 2 03/23/24 15:29 Nasal Cannula 03/23/24 15:01 Nasal Cannula 03/23/24 15:00 Nasal Cannula 2 03/23/24 14:30 Nasal Cannula 03/23/24 14:15 Nasal Cannula 03/23/24 14:13 Nasal Cannula 03/23/24 14:00 Intake and Output 03/23/24 03/24/24 03/24/24 23:59 07:59 15:59 Intake Total 1291 / 1291 Output Total 1150 / 1150 0 / 1150 Balance 141 / 141 0 / 141 Intake: Intake, Total IV Amount 1291 / 1291 0.9% NaCl w/40mEq KCL 1,000 ml 1291 / 1291 @ 100 mls/hr IV .Q10H [facility] Rx#: [id number] Output: Output, Urine Amount 600 / 600 0 / 600 Output, Gastric Drainage Amount 550 / 550 Right Nare 550 / 550 Other: Number of Unmeasured Voids 1 1 Weight 66.735 kg 69.581 kg Patient Weight 03/24/24 23:59 Weight 69.581 kg Laboratory Results - last 24 hr 03/23/24 06:20: HIV 1&2 Antibody Rapid Nonreactive 03/23/24 11:38: Total Counted 100, Neutrophils % (Manual) 91 H, Lymphocytes % (Manual) 5 L, Monocytes % (Manual) 3, Eosinophils % (Manual) 1, Platelet Estimate Normal, Poikilocytosis 1+, Anisocytosis 1+, Microcytosis 1+, Macrocytosis 1+, Ovalocytes 1+ 03/23/24 16:26: Lactate 0.9 03/24/24 06:20: WBC 7.5 D, RBC 2.96 L, Hgb 10.4 L, Hct 30.8 L, MCV 103.8 H, MCH 34.9 H, MCHC 33.7, RDW 14.4, Plt Count 191, MPV 8.8, Neut % (Auto) 85.1 H, Lymph % (Auto) 8.4 L, [place] % (Auto) 5.4, Eos % (Auto) 0.8, Baso % (Auto) 0.3, Neut # (Auto) 6.4, Lymph # (Auto) 0.6 L, [place] # (Auto) 0.4, Eos # (Auto) 0.1, Baso # (Auto) 0.0, Total Counted 100, Neutrophils % (Manual) 81 H, Lymphocytes % (Manual) 16, Monocytes % (Manual) 3, Platelet Estimate Normal, Macrocytosis 1+, Sodium 135 L, Potassium 3.8 D, Chloride 97 L, Carbon Dioxide 35 H, Anion Gap 6.8, BUN 19 H, Creatinine 0.70 D, Estimated Creat Clear 46, Estimated GFR 80, Est GFR ( Amer) 96 D, Glucose 109 H, Calcium 7.4 L, Magnesium 1.9 D, Total Bilirubin 0.6, AST 29 D, ALT 15, Alkaline Phosphatase 47, Total Protein 5.3 L, Albumin 2.6 L D, Globulin 2.7, Albumin/Globulin Ratio 1.0 L I & O for Labs for Last 24 Hours: Intake & Output 03/21/24 03/22/24 03/23/24 03/24/24 23:59 23:59 23:59 23:59 Intake Total 350 / 553 1291 / 1291 Output Total 450 / 450 1150 / 1150 Balance -100 / 103 141 / 141 Weight 66.735 kg 69.581 kg Constitutional: Present no acute distress, average body habitus, chronically ill appearing and cooperative Head: Present atraumatic and normocephalic ENT: Present normal exam Comment:: NG in right nare Respiratory: Present normal respiratory effort; Absent rhonchi, wheezes or crackles Cardiac: Present Regular Rate Comment:: Irregularly irregular GI: Present soft and tenderness (Mild, interval improvement.); Absent distention Comments:: Minimal bowel sounds; hypoactive Extremities: Present normal inspection and full ROM Skin: Present intact; Absent erythema Neuro: Present Grossly Intact, alert, awake and moves all extremities Comment:: Oriented to self, pleasantly demented. Assessment and Plan *Assessment and plan (1) Small bowel obstruction: Problem Comment: No gas yet but her exam has greatly improved. I will continue a nonoperative trial for 24 more hours. She will likely need a full liquid diet for a couple of weeks to prevent relapse should she improve without surgery. Status: Acute Category: Medical Code(s): K56.609 - Unspecified intestinal obstruction, unspecified as to partial versus complete obstruction (2) Hypokalemia: Status: Acute Category: Medical Code(s): E87.6 - Hypokalemia (3) Hypochloremia: Status: Acute Category: Medical Code(s): E87.8 - Other disorders of electrolyte and fluid balance, not elsewhere classified (4) Hypomagnesemia: Status: Acute Category: Medical Code(s): E83.42 - Hypomagnesemia (5) Dementia: Status: Chronic Category: Medical Code(s): F03.90 - Unspecified dementia, unspecified severity, without behavioral disturbance, psychotic disturbance, mood disturbance, and anxiety (6) Hypertension: Status: Acute Qualifiers: Hypertension type: primary hypertension Qualified Code(s): I10 - Essential (primary) hypertension Category: Medical Code(s): I10 - Essential (primary) hypertension (7) Atrial fibrillation: Status: Chronic Qualifiers: Atrial fibrillation type: longstanding persistent Qualified Code(s): I48.11 - Longstanding persistent atrial fibrillation Category: Medical Code(s): I48.91 - Unspecified atrial fibrillation (8) Anxiety: Status: Chronic Category: Medical Code(s): F41.9 - Anxiety disorder, unspecified (9) Chronic anticoagulation: Status: Chronic Category: Medical Code(s): Z79.01 - USP (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 History of previous abdominal surgeries. Presents with small bowel obstruction. NG placed in the ER. Discussed case with ER physician, request admission for medical management and surgical evaluation. I agreed to admit for further treatment. High risk for surgery based on her comorbidities. Hemodynamically stable. Necessitating inpatient treatment. Continue medical management. Problems addressed as follows: Small bowel obstruction -High-grade obstruction on personal review of CT with diffuse small bowel dilation and significant fluid. Distended stomach. Definitive transition zone. -NG to low wall suction -Surgery consulted, discussed case again this morning. Continue NG to low wall suction. Continue conservative management. Has had over a liter of output. Will attempt to avoid surgery given age, comorbidities, and risk. No bowel movement as of yet. -- ASA 2(E); Aguirre perioperative CRISPIN 0.9%; RCRI 1, 6% mace; all though surgical intervention is not ideal given patient's underlying cognitive impairment, anticoagulation, A-fib, would recommend bridging with Lovenox and holding her NOAC. Appears rate controlled at this time with normal blood pressure and on room air. Optimized for surgery if deemed emergent. Would recommend preoperative EKG. EKG obtained today in the ER shows A-fib but no ischemic changes. Hypokalemia Hypomagnesemia Hypochloremia -Continue maintenance fluids with NS +40 of KCl at 75 cc an hour. -Repeat CBC, CMP, magnesium ordered for the morning. -Sodium this morning 135, potassium 3.8, magnesium 1.9. Kidney function normal BUN 19, creatinine 0.7. -White count normal at 7.5, hemoglobin stable at 10. Platelets 191. A-fib 1 currently rate. Will consider IV metoprolol or diltiazem as needed if heart rate becomes fast/greater than 120. -Holding anticoagulation Anxiety: lorazepam 0.5 mg IV as needed for severe anxiety every 8 hours. Monitor for side effects/toxicity Holding oral medications including Lipitor, vitamin D, Lasix, potassium. N.p.o. Holding anticoagulation in the setting of possible surgical intervention Further CODE STATUS discussion with family
--- NOTE | 2024-03-24 14:55 | PC.NURSE ---
PT IS RESTING IN BED. ALERT TO SELF ONLY. PT WILL ANSWER QUESTIONS AND FOLLOW COMMANDS. PT HAS TO BE REMINDED FREQUENTLY TO NOT PULL ON NG TUBE. O2 SATURATION HAS MAINTAINED 90-93% ON 1 L NC. TOLERATED SITTING UP IN THE CHAIR FOR SEVERAL HOURS THIS SHIFT. PT HAS BEEN USING ATTENDS AND BSC TO VOID. ABDOMEN SOFT/TENDER WITH HYPOACTIVE BOWEL SOUNDS. PASSING FLATUS. NG TUBE NOTED TO RIGHT NARE @ 62. CONNECTED TO LOW WALL CONTINUOUS SUCTION. 150 ML'S GREEN GASTRIC CONTENTS EMPTIED FROM CANISTER. WILL CONTINUE TO MONITOR.
[2024-03-24 15:35] VITALS: BP 140/92; PULSE 102; RESP 19; TEMP 36.6; O2SAT 97
[2024-03-24 20:00] VITALS: BP 142/67; PULSE 117; RESP 18; TEMP 36.8; O2SAT 98
[2024-03-25] VITALS: BP 147/68; PULSE 101; RESP 18; TEMP 36.6; O2SAT 97
[2024-03-25] MEDS: 0.9% NaCl w/40mEq KCL 1,000 ML 75 ML IV (03:48)
[2024-03-25 04:00] VITALS: BP 151/63; PULSE 96; RESP 18; TEMP 36.7; O2SAT 97; BMI 25.4
--- NOTE | 2024-03-25 05:26 | PC.NURSE ---
Patient has slept all shift. Patient NG tube was unclogged x2 and then drained well through the night. Patient is passing gas and patient expressed that she felt she needed to have a BM but never did. Patient is x2 to the bedside. no other issues
[2024-03-25 06:42] LABS: Alanine Aminotransferase 13 U/L (12-78); Albumin Level 2.4 g/dl (3.5-5.0); Alkaline Phosphatase 46 U/L (38-126); Anion Gap 7.3 mEq/L (5-15); Aspartate Amino Transferase 26 U/L (14-36); Bilirubin,Total 0.7 mg/dl (0.2-1.3); Blood Urea Nitrogen 16 mg/dl (7-17); Calcium 7.4 mg/dl (8.4-10.2); Carbon Dioxide 33 mmol/L (22.0-30.0); Chloride 104 mmol/L (98-107); Creatinine Clearance Estimated 46 mL/min (50-200); Estimated Glomerular Filt Rate 95 ml/min (>60); GFR (African American) 115 ML/MIN (>60); Globulin 2.5 g/dL (1.3-3.2); Glucose 79 mg/dl (74-100); Magnesium 1.4 mg/dl (1.6-2.3); Potassium 4.3 mmoL/L (3.5-5.1); Sodium 140 mmol/L (136-145); Total Protein,Serum 4.9 g/dl (6.3-8.2)
[2024-03-25 06:47] LABS: Basophils % 0.5 % (0.1-2.0); Eosinophils # 0.1 K/mm3 (0.0-0.4); Hematocrit 28.5 % (37.0-47.0); Hemoglobin 9.7 g/dL (12.2-16.2); Lymphocytes # 0.8 K/mm3 (0.7-4.5); Lymphocytes % 12.8 % (10-50); Mean Corpuscular HGB Conc 33.9 g/dL (31.8-35.4); Mean Corpuscular Hemoglobin 35.2 pg (27.0-31.2); Mean Corpuscular Volume 103.8 fl (81-99); Mean Platelet Volume 8.9 fl (7.4-10.4); Monocytes # 0.4 K/mm3 (0.1-1.0); Monocytes % 6.9 % (1.7-9.3); Neutrophils # 4.6 K/mm3 (1.8-7.8); Neutrophils % 78.9 % (37.0-80.0); Platelet Count 189 K/mm3 (142-424); Red Blood Count 2.75 M/mm3 (4.20-5.40); Red Cell Distribution Width 14.4 % (11.5-17.5); White Blood Count 5.9 K/mm3 (4.8-10.8)
[2024-03-25 08:00] VITALS: BP 131/90; PULSE 110; RESP 18; TEMP 36.6; O2SAT 94
[2024-03-25] MEDS: dilTIAZem 25MG/5ML VIAL 10 MG IV ×3 (08:29→20:57)
[2024-03-25] MEDS: MAGNESIUM SULFATE IN WATER 2 GM/50 ML PIGGYBACK IV ×2 (08:29→12:13)
[2024-03-25] MEDS: PANTOPRAZOLE 40MG VIAL 40 MG IV ×2 (08:33→20:57)
--- NOTE | 2024-03-25 08:44 | XR_ITS ---
FINAL REPORT CLINICAL HISTORY: bowel obstruction COMPARISON: 03/23/2024 FINDINGS: Chest: The heart is enlarged. The mediastinum is within normal limits. The lungs are clear. There is no pneumothorax. Osseous structures are unremarkable. Abdomen: AP and upright views of the abdomen were obtained. There is a NG tube present with the tip in the fundus of the stomach. Multiple air-filled distended bowel loops having appearance consistent with small-bowel obstruction, similar to the prior study. No abnormal calcifications are identified. IMPRESSION: No acute cardiopulmonary process. Findings consistent with small-bowel obstruction, similar to the prior study. NG tube tip in the fundus of the stomach. Reviewed, Interpreted and Dictated by Jose Messina III, MD Transcribed by Melissa Duncan Authenticated and [facility]
--- NOTE | 2024-03-25 09:35 | SW/DCPLANNER ---
Addendum entered by Madison Gamboa 04/01/24 15:17: Patient will return to [facility] SN[facility] level of care. I have update Cynthia hansen/ [facility]. Addendum entered by Madison Gamboa 04/01/24 08:14: Per Cynthia hansen/ [facility] patient has been approved to return SNF level of care today. Addendum entered by Madison [place] 03/29/24 11:00: Per Cynthia hansen/ [facility] precert will be started today. Addendum entered by Madison [place] 03/29/24 10:05: Updated patient information has been faxed to Cynthia suarez [facility] to start precert for SNF level of care. Addendum entered by Madison [place] 03/28/24 11:50: I followed up w/ patient and her family at bedside this AM regarding discharge plans. Per family the plan for patient is to return to [facility] SN[facility] level of care. Family stated that they plan for patient to be at [facility] alf. Addendum entered by Madison Gamboa 03/27/24 13:22: Updated patient information has been faxed to Cynthia hansen/ [facility]. Original Note: Per Cynthia hansen/ [facility] this patient is currently SNF level of care. Updated patient information has been faxed. Discharge date is unknown at this time. Patient will require a precert prior to discharge.
--- NOTE | 2024-03-25 10:51 | P.PN_ITS ---
Subjective Narrative: Patient is an 83-year-old female from [place] with a history of dementia, anxiety, hypokalemia, hypertension, atrial fibrillation and DVT on Xarelto. She has a prior history of abdominal surgeries. Exact details are unknown. Apparently she has had surgery for stomach cancer . She had recent admission in [place] for apparent bowel obstruction which was managed nonoperatively. There was consideration reportedly for surgery at that time. She presented to the emergency department at this facility on 03/23/2024 after she was discharged from [facility] on 03/20/2024 with severe abdominal pain, inability to tolerate p.o., bilious vomiting. She underwent CT scan which revealed decompressed colon and terminal ileum with most of the small bowel dilated to 4 cm with air-fluid levels consistent with high-grade partial bowel obstruction with transition point seen in the right hemipelvis. She was admitted for inpatient management for bowel obstruction and consultation was obtained with the surgeon on-call. Patient has been belching. No passing of gas or bowel function. Discussion with family reveals that her symptoms have likely been ongoing for about 2 weeks or even longer. Exam Data for Last 24 hours Vital signs and Labs for Last 24 Hours: Temp Pulse Resp BP Pulse Ox O2 Del Method O2 Flow Rate 98 F 110 H 18 131/90 94 L Nasal Cannula 1 03/25/24 08:00 03/25/24 08:00 03/25/24 08:00 03/25/24 08:00 03/25/24 08:00 03/25/24 09:00 03/25/24 08:00 Laboratory Results - last 24 hr 03/23/24 06:20: HIV 1&2 Antibody Rapid Nonreactive 03/25/24 06:05: WBC 5.9, RBC 2.75 L, Hgb 9.7 L, Hct 28.5 L, MCV 103.8 H, MCH 35.2 H, MCHC 33.9, RDW 14.4, Plt Count 189, MPV 8.9, Neut % (Auto) 78.9, Lymph % (Auto) 12.8, [place] % (Auto) 6.9, Eos % (Auto) 1.0, Baso % (Auto) 0.5, Neut # (Auto) 4.6, Lymph # (Auto) 0.8, [place] # (Auto) 0.4, Eos # (Auto) 0.1, Baso # (Auto) 0.0, Sodium 140, Potassium 4.3, Chloride 104, Carbon Dioxide 33 H, Anion Gap 7.3, BUN 16, Creatinine 0.60, Estimated Creat Clear 46, Estimated GFR 95, Est GFR ( Amer) 115, Glucose 79 D, Calcium 7.4 L, Magnesium 1.4 L D, Total Bilirubin 0.7, AST 26, ALT 13, Alkaline Phosphatase 46, Total Protein 4.9 L, Albumin 2.4 L, Globulin 2.5, Albumin/Globulin Ratio 1.0 L I & O for Last 24 hours: Intake & Output 03/22/24 03/23/24 03/24/24 03/25/24 11:59 11:59 11:59 11:59 Intake Total 1641 / 1641 685 / 685 Output Total 1600 / 1600 250 / 250 Balance 41 / 41 435 / 435 Weight 146 lb 153 lb 6.4 oz 152 lb 6 oz *Routine Abdominal Exam Comments: Slightly distended. Relatively soft. No appreciable tenderness. Progress Note: A&P Assessment and plan (1) Small bowel obstruction: Status: Acute Assessment and plan: Abdominal x-ray today reveals findings consistent with small bowel obstruction similar to prior studies. Highly concerning that her obstruction will be refractory to nonoperative management. Patient carry some appreciable risk with operative intervention however. I will see if some of her records can be obtained from hospitalization at [place] and previous hospitalization at [facility]. (2) Hypokalemia: Status: Acute (3) Hypochloremia: Status: Acute (4) Hypomagnesemia: Status: Acute (5) Dementia: Status: Chronic (6) Hypertension: Status: Acute (7) Atrial fibrillation: Status: Chronic (8) Anxiety: Status: Chronic (9) Chronic anticoagulation: Status: Chronic
--- NOTE | 2024-03-25 11:23 | CA_ITS ---
APPROVED REPORT EXAM: Comprehensive 2D, Doppler, and color-flow Echocardiogram Respiratory Therapy Technician: Candie Castro RVT Ht: 5 ft 4 in Wt: 152lbs BSA: 1.74 BP: 131/90 mmHg Indications: PRE-OP-SBO,A-FIB,HTN,DEMENTIA 2D Dimensions LA Volume 87.60 mL LA Volume Index 50.34 mL/m2 (M/F) 16-34 M-Mode Dimensions RVDd 4.02 cm (0.9-2.6) LA Diam 5.07 cm (1.9-4.0) LVDd 4.56 cm (3.5-5.7) LVDs 3.35 cm (3.5-5.7) IVSd 1.79 cm (0.6-1.1) PWd 1.39 cm (0.6-1.1) EF (Teich) 52.00% FS 26.50% EDV (Teich) 95.40 mL ESV (Teich) 45.80 mL LV Diastology E Decel Time 180 (160-240 msec) E/A Ratio 2.4 Aortic Valve AO Peak GR. 5.40 mmHg Mitral Valve MV E Max Siddhartha. 120.0 (40-130 cm/s) MV A Velocity 50.0 (40-130 cm/s) E/A Ratio 2.40 MV PHT 53.0 ms Pulmonary Valve PV Peak Velocity 107.0 (50-150 cm/s) Tricuspid Valve TR P. Velocity 334.00 cm/s RAP Estimate 10.00 mmHg RVSP 54.60 mmHg Left Ventricle The left ventricle is normal size. The left ventricular systolic function is normal. The left ventricular ejection fraction is within the normal range. There is increased overall thickness. There is normal LV segmental wall motion. Diastolic function is indeterminate. LVEF is 55%. Right Ventricle Right ventricle is moderately dilated. Right ventricle is mildly hypokinetic. Atria Left atrium is severely dilated. Right atrium is severely dilated. There is no Doppler evidence of interatrial shunt. Aortic Valve The aortic valve leaflets are mildly thickened. There is no aortic valvular stenosis. Mild aortic regurgitation. Mitral Valve The mitral valve is mildly thickened. No evidence of mitral valve stenosis. Mild mitral regurgitation. Tricuspid Valve The tricuspid valve leaflets are thin and pliable. Moderate tricuspid regurgitation. RVSP is 30-35 mmHg. Pulmonic Valve The pulmonary valve is normal in structure. Mild pulmonic regurgitation. Great Vessels The aortic root is normal in size. The ascending aorta is not well-visualized. IVC is normal in size and collapses >50% with inspiration. Pericardium There is no pericardial effusion. Other Information Study Quality: Technically Difficult Conclusion Technically difficult study due to poor acoustic windows. Normal LV systolic function. Moderate RV dilation with mild reduction in RV function. Severe biatrial dilation. Moderate TR. Mild AI, mild MR, mild PI. RVSP is 30-35 mmHg. Electronically signed by : Yesenia Short MD 03/25/2024 13:27:17
--- NOTE | 2024-03-25 13:40 | HMH.PTEV ---
Physical Therapy Evaluation Rehab PT IP Evaluation Start: 03/25/24 10:49 Freq: ONCE Status: Active Protocol: Document 03/25/24 13:33 JONNATHAN (Rec: 03/25/24 13:38 JONNATHAN [id number]) Subjective/History History History Per H&P: Thien is an 83- year-old female with dementia and anxiety and coagulate and who presented to the ER because of concern for bowel obstruction. Recently admitted to [place] [facility] last week for 2 days due to bowel obstruction. Was decompressed with NG, surgery offered but family declined at that time. History of previous abdominal surgeries. Returned back to her nursing facility and developed recurrent nausea, vomiting, periumbilical pain. Been worse over the past 2 days. Afebrile. Stable on room air. On arrival today, found to have elevated CRP, electrolyte disturbances and mild dehydration. CT obtained showing diffuse distended small bowel loops with significant fluid and definitive transition point. Surgery consulted, NG was placed in the ER. Medicine consulted for admission and further management. Per review, patient was having bilious emesis. Unable to tolerate p.o. medications or nutrition. Pain severe around her umbilicus. Afebrile. Patient pleasant but unable to give much history other than pain. Feeling better since placement of NG. Subjective Subjective Pt [place] and mildly confused but agreeable to PT evaluation. PLOF: Reports she is IND with mobility, bathing, and dressing. Lives alone but reports her nephew is able to stay with her. New diagnosis of cancer in past 12 No months? Rehab PT IP Eval Objective Appearance Patient Behavior Appropriate,Cooperative Patient Orientation Person,Birthday Difficulty following instructions none Speech Pattern Clear,Appropriate Ambulation Patient Able to Ambulate Yes Ambulation Observation Ambulation Distance (feet) 5 Ambulation Ability Minimal x 1 (25% assist) Balance Ability to Arise Able, uses arms to help Sitting Balance Steady, safe Standing Balance Unsteady Dynamic Sitting Balance Ability Good Dynamic Standing Balance Ability Fair Transfers Bed Transfer Ability Supervision/Stand by Sit to Stand Bed Transfer Ability Minimal x 1 (25% assist) Rehab PT IP prob,goals,plan Problems Date of Evaluation: 03/25/24 PT IP Problems Bed Mobility,Transfers,Gait, Balance,Safety Rehab Potential Rehab Potential Good Equipment Needs Assistive Devices Rolling / Wheeled Walker Plan PT Intervention Plan Bed Mobility,Transfers,Gait, Balance,Self care,Safety, Therapeutic Exercise Other Intervention Plan 1-2 times PT Plan Frequency Daily Duration LOS Discharge Goals Bed Transfer Ability Supervision/Stand by Sit to Stand Chair Transfer Ability Supervision/Stand by Ambulation Assistive Device Rolling Walker Ambulation Distance (feet) 10 Discharge Plan PT Discharge Plan PT recommending d/c home with 24/7 care provided by family. If pt unable to secure 24/7 care at home, pt would benefit from rehab placement. PT is unsure if pt owns RW for ambulation but PT recommending pt use RW for all ambulation d.t impaired balance. Eval Complexity Eval Charge Codes 01518 - Moderate Complexity PHYSICIAN CERTIFICATION: I certify the specified therapy services for Lena Neumann are required, authorized, and reviewed every 30 days.
--- NOTE | 2024-03-25 14:03 | HMH.OTEV ---
OT Inpatient Evaluation Rehab OT IP Evaluation Start: 03/25/24 10:49 Freq: ONCE Status: Active Protocol: Document 03/25/24 13:43 [facility] (Rec: 03/25/24 14:03 [facility] [id number]) Rehab OT IP Assessment Subjective History Pt oriented x2 on arrival. Pt agreeable to engage in evaluation. Pt admitted to [facility] on 03/23/24 due to nausea and vomiting. Pt history and physical report : Thien is an 83-year-old female with dementia and anxiety and coagulate and who presented to the ER because of concern for bowel obstruction . Recently admitted to [place] last week for 2 days due to bowel obstruction. Was decompressed with NG, surgery offered but family declined at that time. History of previous abdominal surgeries. Returned back to her nursing facility and developed recurrent nausea, vomiting, periumbilical pain. Been worse over the past 2 days. Afebrile. Stable on room air. On arrival today, found to have elevated CRP, electrolyte disturbances and mild dehydration. CT obtained showing diffuse distended small bowel loops with significant fluid and definitive transition point. Surgery consulted, NG was placed in the ER. Medicine consulted for admission and further management. Subjective Information provided by pt may not be accurate due to pt being a poor historian. Pt reports that she lives at home alone, but that her nephew will be living with her to provide assistance. Pt reports being independent with all ADLs and IADLs. Pt reports using a walker during functional transfers. Pt no longer engages in driving. Objective Patient Orientation Name,Birthday Right Upper Extremity Gross ROM WFL Left Upper Extremity Gross ROM WFL Bed Mobility bed mobility-scooting,bed mobility - supine/sit Assist Level Contact Guard/Hand Hold Transfer Training Sit/Stand Transfer Assist Level Moderate x 1 (50% assist) Decrease in Endurance Yes Rehab OT IP prob,goals,plan Problems Date of Evaluation: 03/25/24 OT IP Problems Bed Mobility,Transfers,Balance ,Self care,Safety Rehab Potential Rehab Potential Good Equipment Needs Assistive Devices Rolling / Wheeled Walker Plan OT intervention Plan Bed Mobility,Transfers,Balance ,Self care,Safety,Therapeutic Exercise OT Plan Frequency Daily Duration LOS Discharge Goals Bed Mobility Ability Standby Assistance Sit to Stand Chair Transfer Ability Minimal x 2 (25% assist) Chair Transfer Ability Minimal x 1 (25% assist) Chair Transfer Technique Sit to/from Ambulatory Chair Transfer Assistive Devices Rolling Walker Feeding Ability Assist with Tray Set Up Lower Body Dressing Ability Moderate Assistance Upper Body Dressing Ability Moderate Assistance Bathing Ability Moderate Assistance Performing Toilet Hygiene Ability Moderate Assistance Overall Commode/Toilet Transfer Ability Minimal Assistance Commode/Toilet Transfer Technique Sit to/from Ambulatory Commode/Toilet Transfer Assistive Grab Bars Devices Oral Care Assist Minimal Assistance Decrease in Endurance No Discharge Plan OT Discharge Plan Pt will continue to be seen for OT services while at [facility]. Once medically stable, pt would benefit most from short- term rehab to address functional decline. Continued skilled services are important to improve safety, balance, endurance, ADL independence, and functional transfers to reach PLOF. Eval Complexity Eval Charge Codes 06614 - Moderate Complexity PHYSICIAN CERTIFICATION: I certify the specified therapy services for Lena Neumann are required, authorized, and reviewed every 30 days.
[2024-03-25 14:20] VITALS: BP 128/76; PULSE 112
[2024-03-25 15:30] VITALS: BMI 25.3
[2024-03-25 16:00] VITALS: BP 126/72; PULSE 99; RESP 18; TEMP 36.4; O2SAT 92
--- NOTE | 2024-03-25 17:31 | P.PN_ITS ---
Subjective *Date: 03/25/24 *Time: 20:36 Interval history: Continues to have no bowel movements. Reported flatus once, but not witnessed. Belly still distended. NG in place with good drainage. No cristian emesis. Stable on 2 L oxygen for comfort. Family at bedside today, would like to pr oceed with intervention if need be. Do not want patient to continue to suffer being NPO. Discussed risks and benefits. Concern the patient is an elevated risk for intervention, discussed further workup including echo to evaluate EF. Will also obtain records from [facility] from previous procedures and hospitalizations. Medical Exam Vital signs and Labs for Last 24 Hours: Vital Signs Temp Pulse Resp BP Pulse Ox O2 Del Method O2 Flow Rate 03/25/24 16:00 97.6 F 99 H 18 126/72 92 L Nasal Cannula 1 03/25/24 15:00 Nasal Cannula 03/25/24 14:20 112 H 128/76 03/25/24 13:00 Nasal Cannula 03/25/24 11:00 Nasal Cannula 03/25/24 09:00 Nasal Cannula 03/25/24 08:00 Nasal Cannula 1 03/25/24 08:00 98 F 110 H 18 131/90 94 L Nasal Cannula 1 03/25/24 06:43 Room Air 03/25/24 05:00 Nasal Cannula 1 03/25/24 04:00 98.1 F 96 H 18 151/63 H 97 Nasal Cannula 2 03/25/24 03:00 Nasal Cannula 1 03/25/24 00:49 Nasal Cannula 1 03/25/24 00:00 97.8 F 101 H 18 147/68 H 97 Nasal Cannula 2 03/24/24 23:00 Nasal Cannula 1 03/24/24 21:00 Nasal Cannula 1 03/24/24 20:00 98.3 F 117 H 18 142/67 H 98 Nasal Cannula 2 03/24/24 20:00 Nasal Cannula 1 03/24/24 18:02 Nasal Cannula 1 Intake and Output 03/25/24 03/25/24 03/25/24 07:59 15:59 23:59 Intake Total 0 / 0 Output Total 250 / 250 0 / 250 Balance -250 / -250 0 / -250 Intake: Intake, Oral Amount 0 / 0 Output: Output, Urine Amount 0 / 0 0 / 0 Output, Gastric Drainage Amount 250 / 250 Right Nare 250 / 250 Other: Number of Unmeasured Voids 1 1 Weight 69.116 kg 69 kg Patient Weight 03/25/24 23:59 Weight 69 kg Laboratory Results - last 24 hr 03/25/24 06:05: WBC 5.9, RBC 2.75 L, Hgb 9.7 L, Hct 28.5 L, MCV 103.8 H, MCH 3 5.2 H, MCHC 33.9, RDW 14.4, Plt Count 189, MPV 8.9, Neut % (Auto) 78.9, Lymph % (Auto) 12.8, [place] % (Auto) 6.9, Eos % (Auto) 1.0, Baso % (Auto) 0.5, Neut # (Auto) 4.6, Lymph # (Auto) 0.8, [place] # (Auto) 0.4, Eos # (Auto) 0.1, Baso # (Auto) 0.0, Sodium 140, Potassium 4.3, Chloride 104, Carbon Dioxide 33 H, Anion Gap 7.3, BUN 16, Creatinine 0.60, Estimated Creat Clear 46, Estimated GFR 95, Est GFR ( Amer) 115, Glucose 79 D, Calcium 7.4 L, Magnesium 1.4 L D, Total Bilirubin 0.7, AST 26, ALT 13, Alkaline Phosphatase 46, Total Protein 4.9 L, Albumin 2.4 L, Globulin 2.5, Albumin/Globulin Ratio 1.0 L I & O for Labs for Last 24 Hours: Intake & Output 03/22/24 03/23/24 03/24/24 03/25/24 23:59 23:59 23:59 23:59 Intake Total 350 / 553 1975 0 / 0 Output Total 450 / 450 1150 / 1400 250 / 250 Balance -100 / 103 826 / 576 -250 / -250 Weight 66.735 kg 69.581 kg 69 kg Constitutional: Present no acute distress, average body habitus, chronically ill appearing and cooperative Head: Present atraumatic and normocephalic ENT: Present normal exam Comment:: NG in right nare Respiratory: Present normal respiratory effort; Absent rhonchi, wheezes or crackles Cardiac: Present Regular Rate Comment:: Irregularly irregular GI: Present soft and tenderness (Mild, diffuse); Absent distention Comments:: Minimal bowel sounds; hypoactive Extremities: Present normal inspection and full ROM Skin: Present intact; Absent erythema Neuro: Present Grossly Intact, alert, awake and moves all extremities Comment:: Oriented to self, pleasantly demented. Assessment and Plan *Assessment and plan (1) Small bowel obstruction: Status: Acute Category: Medical Code(s): K56.609 - Unspecified intestinal obstruction, unspecified as to partial versus c omplete obstruction (2) Hypokalemia: Status: Acute Category: Medical Code(s): E87.6 - Hypokalemia (3) Hypochloremia: Status: Acute Category: Medical Code(s): E87.8 - Other disorders of electrolyte and fluid balance, not elsewhere classified (4) Hypomagnesemia: Status: Acute Category: Medical Code(s): E83.42 - Hypomagnesemia (5) Dementia: Status: Chronic Category: Medical Code(s): F03.90 - Unspecified dementia, unspecified severity, without behavioral disturbance, psychotic disturbance, mood disturbance, and anxiety (6) Hypertension: Status: Acute Qualifiers: Hypertension type: primary hypertension Qualified Code(s): I10 - Essential (primary) hypertension Category: Medical Code(s): I10 - Essential (primary) hypertension (7) Atrial fibrillation: Status: Chronic Qualifiers: Atrial fibrillation type: longstanding persistent Qualified Code(s): I48.11 - Longstanding persistent atrial fibrillation Category: Medical Code(s): I48.91 - Unspecified atrial fibrillation (8) Anxiety: Status: Chronic Category: Medical Code(s): F41.9 - Anxiety disorder, unspecified (9) Chronic anticoagulation: Status: Chronic Category: Medical Code(s): Z79.01 - intermission coordinator (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 History of previous abdominal surgeries. Presents with small bowel obstruction. NG placed in the ER. Discussed case with ER physician, request admission for medical management and surgical evaluation. I agreed to admit for further treatment. High risk for surgery based on her comorbidities. Hemodynamically stable. Necessitating inpatient treatment. Continue medical management. Problems addressed as follows: Small bowel obstruction -High-grade obstruction, KUB shows continued distention of small bowel. No improvement. -Continue NG to low wall suction -Discussed case with surgery today, patient is elevated risk. Concern about proceeding with surgery however given the fact that she has had obstruction for almost 2 weeks now based on further discussion with family, patient will certainly need surgery for this condition to resolve. -Proceed with echo to evaluate heart function and will obtain records from previous hospital to evaluate their interventions if any at that time. -- ASA 2(E); Aguirre perioperative CRISPIN 0.9%; RCRI 1, 6% mace; all though surgical intervention is not ideal given patient's underlying cognitive impairment, anticoagulation, A-fib, would recommend bridging with Lovenox and holding her NOAC. Appears rate controlled at this time with normal blood pressure and on room air. Optimized for surgery if deemed emergent. Would recommend preoperative EKG. EKG obtained today in the ER shows A-fib but no ischemic changes. Hypokalemia Hypomagnesemia Hypochloremia -Continue maintenance fluids with NS +40 of KCl at 75 cc an hour. -Repeat CBC, CMP, magnesium ordered for the morning. -Sodium 140, potassium 4.3, magnesium 1.4. Replacing magnesium today. Kidney function normal with BUN 16, creatinine 0.6. -White count normal at 5.9, hemoglobin stable at 10. Platelets 189. A-fib: -Initiate diltiazem 10 mg IV every 6 hours for A-fib. -Holding anticoagulation Anxiety: lorazepam 0.5 mg IV as needed for severe anxiety every 8 hours. Monitor for side effects/toxicity Holding oral medications including Lipitor, vitamin D, Lasix, potassium. N.p.o. Holding anticoagulation in the setting of possible surgical intervention Further CODE STATUS discussion with family
--- NOTE | 2024-03-25 18:42 | PC.NURSE ---
patient has been alert to place and self this shift. remains on 1 LNC, tolerating well. NG to right nare @60, placement verified via auscultation and was able to aspirate. NG is draining well. reminded patient to not pull the tube throughout shift. patient did pull out left IV earlier in shift. she is still passing flatus, no BM this shift. uses BSC x1 assist. tolerating ice chips well. call light within reach no further requests at this time.
[2024-03-25] MEDS: LORazepam 2MG/ML VIAL 0.5 MG IV (19:32)
[2024-03-25] MEDS: SODIUM CHLORIDE 0.9% 10ML VIAL 10 ML IV (20:57)
[2024-03-26] VITALS (22 sets, daily range): BP systolic 114–160; BP diastolic 63–95; PULSE 91–122; RESP 14–18; TEMP 36.4–37.2; O2SAT 2–100; BMI 25.1
--- NOTE | 2024-03-26 01:36 | XR_ITS ---
PROCEDURE INFORMATION: Exam: XR Abdomen Exam date and time: 03/26/2024 1:48 AM Age: 83 years old Clinical indication: Device placement; Gi device; Nasogastric tube; Additional info: Confirm placement TECHNIQUE: Imaging protocol: Radiologic exam of the abdomen. Views: Frontal supine view of the abdomen. 1 View. COMPARISON: CR XR ACUTE ABDOMEN SERIES 03/25/2024 9:47 AM FINDINGS: Tubes, catheters and devices: Esophageal catheter is present in the proximal stomach. Gastrointestinal tract: Nonobstructive bowel gas pattern. Bones/joints: Leftward curvature of the lumbar spinal column. IMPRESSION: Esophageal catheter proximal stomach.
[2024-03-26] MEDS: dilTIAZem 25MG/5ML VIAL 10 MG IV ×5 (01:44→23:50)
[2024-03-26 05:14] LABS: HCV Ab Non Reactive (Non Reactive)
--- NOTE | 2024-03-26 06:47 | PC.NURSE ---
Addendum entered by Alison Kirk RN 03/26/24 06:49: Patient also pulled majority of NG tube out throughout the night. Was able to advance NG back right nare @ 63. Patient tolerated well. KUB order entered to confirm placement. Original Note: Son notified need for signed consent for surgery. States he will be on his way shortly.
[2024-03-26 06:56] LABS: Basophils % 0.3 % (0.1-2.0); Eosinophils # 0.1 K/mm3 (0.0-0.4); Eosinophils % 1.1 % (0.1-12.0); Hematocrit 30.8 % (37.0-47.0); Hemoglobin 10.4 g/dL (12.2-16.2); Lymphocytes # 0.8 K/mm3 (0.7-4.5); Lymphocytes % 13.1 % (10-50); Mean Corpuscular HGB Conc 33.7 g/dL (31.8-35.4); Mean Corpuscular Hemoglobin 34.4 pg (27.0-31.2); Mean Corpuscular Volume 102.1 fl (81-99); Mean Platelet Volume 8.7 fl (7.4-10.4); Monocytes # 0.4 K/mm3 (0.1-1.0); Monocytes % 5.8 % (1.7-9.3); Neutrophils % 79.7 % (37.0-80.0); Platelet Count 208 K/mm3 (142-424); Red Blood Count 3.02 M/mm3 (4.20-5.40); Red Cell Distribution Width 14.2 % (11.5-17.5); White Blood Count 6.2 K/mm3 (4.8-10.8)
[2024-03-26 07:07] LABS: Alanine Aminotransferase 12 U/L (12-78); Albumin Level 2.6 g/dl (3.5-5.0); Alkaline Phosphatase 49 U/L (38-126); Anion Gap 9.1 mEq/L (5-15); Aspartate Amino Transferase 27 U/L (14-36); Bilirubin,Total 0.7 mg/dl (0.2-1.3); Blood Urea Nitrogen 13 mg/dl (7-17); Calcium 7.7 mg/dl (8.4-10.2); Carbon Dioxide 30 mmol/L (22.0-30.0); Chloride 102 mmol/L (98-107); Creatinine Clearance Estimated 45 mL/min (50-200); Estimated Glomerular Filt Rate 118 ml/min (>60); GFR (African American) 142 ML/MIN (>60); Globulin 2.6 g/dL (1.3-3.2); Glucose 67 mg/dl (74-100); Potassium 4.1 mmoL/L (3.5-5.1); Sodium 137 mmol/L (136-145); Total Protein,Serum 5.2 g/dl (6.3-8.2)
[2024-03-26 07:20] LABS: Magnesium 1.6 mg/dl (1.6-2.3)
--- NOTE | 2024-03-26 09:01 | P.PN_ITS ---
Subjective Patient reports: no new complaints Narrative: Patient still has not shown bowel function. Review of the record reveals that she has had bowel obstruction since prior to 03/14/2024 when she was evaluated at [facility] in [place]. KUB performed overnight after nasogastric tube replacement which reveals dilated bowel. Exam Data for Last 24 hours Vital signs and Labs for Last 24 Hours: Temp Pulse Resp BP Pulse Ox O2 Del Method O2 Flow Rate 97.5 F L 98 H 18 151/95 H 94 L Room Air 2 03/26/24 04:00 03/26/24 04:00 03/26/24 04:00 03/26/24 04:00 03/26/24 04:00 03/26/24 06:54 03/26/24 04:00 Laboratory Results - last 24 hr 03/23/24 06:20: Hepatitis C Antibody Non reactive 03/26/24 06:05: WBC 6.2, RBC 3.02 L, Hgb 10.4 L, Hct 30.8 L, MCV 102.1 H, MCH 34.4 H, MCHC 33.7, RDW 14.2, Plt Count 208, MPV 8.7, Neut % (Auto) 79.7, Lymph % (Auto) 13.1, [place] % (Auto) 5.8, Eos % (Auto) 1.1, Baso % (Auto) 0.3, Neut # (Auto) 5.0, Lymph # (Auto) 0.8, [place] # (Auto) 0.4, Eos # (Auto) 0.1, Baso # (Auto) 0.0, Sodium 137, Potassium 4.1, Chloride 102, Carbon Dioxide 30, Anion Gap 9.1, BUN 13, Creatinine 0.50 L, Estimated Creat Clear 45, Estimated GFR 118, Est GFR ( Amer) 142 D, Glucose 67 L, Calcium 7.7 L, Magnesium 1.6 D, Total Bilirubin 0.7, AST 27, ALT 12, Alkaline Phosphatase 49, Total Protein 5.2 L, Albumin 2.6 L, Globulin 2.6, Albumin/Globulin Ratio 1.0 L I & O for Last 24 hours: Intake & Output 03/23/24 03/24/24 03/25/24 03/26/24 11:59 11:59 11:59 11:59 Intake Total 1641 / 1641 685 / 685 Output Total 1600 / 1600 250 / 250 900 / 900 Balance 41 / 41 435 / 435 -900 / -900 Weight 146 lb 153 lb 6.4 oz 152 lb 6 oz 151 lb 0.266 oz Progress Note: A&P Assessment and plan (1) Small bowel obstruction: Status: Acute Assessment and plan: Patient has shown no evidence of any improvement in high-grade partial versus complete obstruction for quite some time. Certainly she is at high risk for perioperative complications but it is becoming apparent this is the only potential option. She does have risks of complication. The options were discussed by the hospitalist service with the family. They do wish to pursue surgical intervention. Plan will be for operative intervention later today. (2) Hypokalemia: Status: Acute (3) Hypochloremia: Status: Acute (4) Hypomagnesemia: Status: Acute (5) Dementia: Status: Chronic (6) Hypertension: Status: Acute (7) Atrial fibrillation: Status: Chronic (8) Anxiety: Status: Chronic (9) Chronic anticoagulation: Status: Chronic
[2024-03-26] MEDS: MAGNESIUM SULFATE IN WATER 2 GM/50 ML PIGGYBACK IV (10:00)
--- NOTE | 2024-03-26 11:38 | EXP.ANES.CKL ---
[facility] Disclaimer: The information contained in this section may have been updated after the patient was seen, as this information can be updated by other users. Medical History Muscle wasting and atrophy, not elsewhere classified, multiple sites Abnormality of gait and mobility Vitamin D deficiency Dementia Anxiety Hyperlipemia History of DVT (deep vein thrombosis) Hypertension Atrial fibrillation Polyarthritis Social History Smoking Status: Never smoker alcohol intake: never substance use type: denies use current occupational status: retired Travel in the last 8 weeks: None [facility] Anesthesia Checklist Patient Identification Patient Identification: Arm Band and Verbal (Name & ) Structural Data Admitted From: Inpatient Planned Operative Procedure/s: Ex lap Consent for Planned Operative Procedure(s) Verified: Yes Verified Documents: Surgical Consent and History and Physical NPO Status Verified Time NPO: 00:00 Chart Verification Results Verified: CBC and BMP Additional verifications Anesthesia Reactions: No Airway Assessment Mallampati Score:: Class II C-Spine Mobility Assessed: Yes TMJ Mobility Assessed: Yes Dentition: Edentulous Neurological Assessment Level of Consciousness: Awake Hx Seizures: No Numbness or tingling in extremities: No Anesthesia Plan Anesthesia Risk discussed: Yes Anesthesia Plan: Verified ASA Class: IV Anesthesia Type: General
[2024-03-26] MEDS: AZTREONAM 1 GM in 0.9 % SODIUM CHLORIDE 50 ML IV (12:00)
[2024-03-26] MEDS: LIDOCAINE 1% 20ML MDV 20 ML (12:33)
[2024-03-26] MEDS: ROPIVACAINE 0.5% 30ML VIAL 150 MG (12:33)
--- NOTE | 2024-03-26 13:18 | P.OP_ITS ---
Date of procedure: 03/26/24 Pre-op Diagnosis:: Small bowel obstruction Post-op Diagnosis:: Same Procedure performed:: Diagnostic laparoscopy with laparoscopic lysis of adhesions for freeing of intestinal obstruction Surgeon:: Jose Hernandez MD HYDROELECTRIC MACHINERY MECHANIC HELPER:: Jay Antoine Anesthesia: GETA Estimated blood loss (mL): 5 Operative findings:: She had evidence of a high-grade partial versus complete obstruction in the distal small bowel secondary to adhesions Creating somewhat of a internal hernia without closed-loop obstruction. Small bowel completely decompressed distally and distended proximally. Operative note:: Consent was obtained patient was taken the operating room. She was positioned in a supine position. General anesthesia was induced via endotracheal tube. Abdomen was prepped and draped in the standard surgical fashion. 5 mm left subcostal incision was made. 5 mm trocar was inserted carefully into the peritoneal cavity using optical trocar. CO2 pneumoperitoneum was achieved to 15 mmHg. She was noted to have distended small bowel. 5 mm trocar was inserted inferior to the umbilicus. Kohler was used to inspect what appeared to be an area of scarring. It was noted that she had distended small bowel with chronic omental adhesions creating a tunnel essentially as an internal hernia with small bowel decompressed distally. An additional 5 mm trocar was inserted in the left lateral abdomen. The adhesive small bowel was freed from the omentum carefully using Metzenbaum dissection with some use of blunt dissection. The omental tunnel was then incised carefully and slowly using JAIRO ultrasonic harmonic aleksander freeing the small bowel. Small bowel was then inspected distally where it was decompressed. It was traced to the terminal ileum. Proximal small bowel was distended. This freed the intestinal obstruction. As this appeared to be likely source of distal small bowel obstruction laparotomy was not performed. There was good hemostasis. Trocars were then removed the CO2 pneumoperitoneum was evacuated. Trocars were closed with 4-0 Monocryl in a subcuticular fashion. Dermabond and dressings were applied. . Condition: stable Disposition: PACU Complications:: None immediately apparent
--- NOTE | 2024-03-26 13:26 | EXP.ANES.I ---
[facility] Anesthesia Record Part I Anesthesia Record I Intake, IV Amount: 700 Hydration: Adequate Estimated blood loss (mL): 3 Urine output (mL): 200 Blood Pressure: 160/81 SaO2: 96 Pulse Rate: 93 Airway Patency: Patent Respiratory Rate: 14 Temperature: 98.7 F Patient is:: Awake Stable to PACU at:: 13:22
[2024-03-26 13:59] LABS: Microscopic,Cath URINE MICROSCOPIC (MICROSCOPIC)
[2024-03-26 14:09] LABS: Appearance,Urine/Cath CLEAR (Clear); Blood, Urine/Cath Negative (Negative); Color,Urine/Cath YELLOW (Yellow); Glucose,Urine/Cath (UA) Negative (Negative); Ketones,Urine/Cath 2+ (Negative); Leukocyte Esterase,Cath Negative (Negative); Nitrate,Cath Negative (Negative); PH,Urine/Cath 5.5 (5.0-8.5); Protein,Urine/Cath Negative (Negative); Specific Gravity, Urine/Cath >= 1.030 (1.005-1.030); Urobilinogen,Cath 0.2 EU/dl (0.2)
[2024-03-26 14:18] LABS: Bacteria,Urine/Cath TRACE /lpf; Bilirubin,Cath 1+ (Negative); Squamous Epithelial Ur./Cath Occasional #/hpf (0-5); WBC,Urine/Cath Occasional #/hpf (0-3)
--- NOTE | 2024-03-26 16:05 | PC.NURSE ---
Aox 1 with confusion, 02-2L NC prn, bed alarm active, f/d in place, NG in place, 22g L fa sl, up with assistance times one with walker, three lap sites 2x2 tegaderm c/d/i, seen by PT and OT.
--- NOTE | 2024-03-26 16:16 | PC.NURSE ---
Surgery called at [id number] and stated to leave NG with no suction.
[2024-03-26] MEDS: PANTOPRAZOLE 40MG VIAL 40 MG IV (20:09)
[2024-03-26] MEDS: SODIUM CHLORIDE 0.9% 10ML VIAL 10 ML IV (20:11)
[2024-03-26] MEDS: SODIUM CHLORIDE 0.9% 10ML FLUSH SYRINGE 10 ML IV (20:11)
--- NOTE | 2024-03-26 22:06 | P.PN_ITS ---
Subjective *Date: 03/26/24 *Time: 22:06 Exam Data for Last 24 hours Vital signs and Labs for Last 24 Hours: Temp Pulse Resp BP Pulse Ox O2 Del Method O2 Flow Rate 98.1 F 101 H 16 127/68 100 Nasal Cannula 2 03/26/24 19:45 03/26/24 20:45 03/26/24 20:45 03/26/24 20:45 03/26/24 20:45 03/26/24 20:45 03/26/24 20:45 Laboratory Results - last 24 hr 03/23/24 06:20: Hepatitis C Antibody Non reactive 03/26/24 06:05: WBC 6.2, RBC 3.02 L, Hgb 10.4 L, Hct 30.8 L, MCV 102.1 H, MCH 34.4 H, MCHC 33.7, RDW 14.2, Plt Count 208, MPV 8.7, Neut % (Auto) 79.7, Lymph % (Auto) 13.1, [place] % (Auto) 5.8, Eos % (Auto) 1.1, Baso % (Auto) 0.3, Neut # (Auto) 5.0, Lymph # (Auto) 0.8, [place] # (Auto) 0.4, Eos # (Auto) 0.1, Baso # (Auto) 0.0, Sodium 137, Potassium 4.1, Chloride 102, Carbon Dioxide 30, Anion Gap 9.1, BUN 13, Creatinine 0.50 L, Estimated Creat Clear 45, Estimated GFR 118, Est GFR ( Amer) 142 D, Glucose 67 L, Calcium 7.7 L, Magnesium 1.6 D, Total Bilirubin 0.7, AST 27, ALT 12, Alkaline Phosphatase 49, Total Protein 5.2 L, Albumin 2.6 L, Globulin 2.6, Albumin/Globulin Ratio 1.0 L 03/26/24 : Urine Color Yellow, Urine Appearance Clear, Urine pH 5.5, Ur Specific [place] >= 1.030, Urine Protein Negative, Urine Glucose (UA) Negative, Urine Ketones 2+, Urine Blood Negative, Urine Nitrate Negative, Urine Bilirubin 1+ A, Urine Urobilinogen 0.2, Ur Leukocyte Esterase Negative, Urine RBC None, Urine WBC Occasional, Ur Squamous Epith Cells Occasional, Urine Bacteria Trace I & O for Last 24 hours: Intake & Output 03/23/24 03/24/24 03/25/24 03/26/24 23:59 23:59 23:59 23:59 Intake Total 350 / 553 1975 0 / 0 750 / 750 Output Total 450 / 450 1150 / 1400 750 / 750 625 / 625 Balance -100 / 103 826 / 576 -750 / -750 125 / 125 Weight 66.735 kg 69.581 kg 69 kg 68.5 kg Constitutional Constitutional: no acute distress *Routine HEENT Exam Head: Present normocephalic Eye: Present EOMI and PERRL ENT: Present mucous membranes moist *Routine Neck Exam Neck: Present supple; Absent lymphadenopathy *Routine Respiratory Exam Respiratory: Present CTA bilaterally *Routine Cardiovascular Exam Cardiovascular: Present RRR *Routine Abdominal Exam Abdominal: Present soft, normoactive bowel sounds and tenderness *Routine Extremities Exam Extremities: Absent cyanosis, clubbing or edema *Routine Skin Exam Skin: Present warm; Absent rash *Routine Neurological Exam Neurological: Present alert and oriented X3 Assessment and Plan *Assessment and plan (1) Small bowel obstruction: Status: Acute Category: Medical Code(s): K56.609 - Unspecified intestinal obstruction, unspecified as to partial versus complete obstruction (2) Hypokalemia: Status: Acute Category: Medical Code(s): E87.6 - Hypokalemia (3) Hypochloremia: Status: Acute Category: Medical Code(s): E87.8 - Other disorders of electrolyte and fluid balance, not elsewhere classified (4) Hypomagnesemia: Status: Acute Category: Medical Code(s): E83.42 - Hypomagnesemia (5) Dementia: Status: Chronic Category: Medical Code(s): F03.90 - Unspecified dementia, unspecified severity, without behavioral disturbance, psychotic disturbance, mood disturbance, and anxiety (6) Hypertension: Status: Acute Qualifiers: Hypertension type: primary hypertension Qualified Code(s): I10 - Essential (primary) hypertension Category: Medical Code(s): I10 - Essential (primary) hypertension (7) Atrial fibrillation: Status: Chronic Qualifiers: Atrial fibrillation type: longstanding persistent Qualified Code(s): I48.11 - Longstanding persistent atrial fibrillation Category: Medical Code(s): I48.91 - Unspecified atrial fibrillation (8) Anxiety: Status: Chronic Category: Medical Code(s): F41.9 - Anxiety disorder, unspecified (9) Chronic anticoagulation: Status: Chronic Category: Medical Code(s): Z79.01 - [facility] (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 History of previous abdominal surgeries. Presents with small bowel obstruction. NG cristhian aced in the ER. Discussed case with ER physician, request admission for medical management and surgical evaluation. I agreed to admit for further treatment. High risk for surgery based on her comorbidities. Hemodynamically stable. Necessitating inpatient treatment. Continue medical management. Problems addressed as follows: Small bowel obstruction - High-grade obstruction, KUB shows continued distention of small bowel. Was not improving with bowel rest. - General surgery consulted, s/p diagnostic laparoscopy with laparoscopic lysis of adhesions for freeing of intestinal obstruction. She had evidence of a high- grade partial versus complete obstruction in the distal small bowel secondary to adhesions Creating somewhat of a internal hernia without closed-loop obstruction. Small bowel completely decompressed distally and distended proximally. - Will continue bowel rest for now, introduce CLD tomorrow pending surgery recommendations. A-fib: -Initiate diltiazem 10 mg IV every 6 hours for A-fib. -Holding anticoagulation Anxiety: lorazepam 0.5 mg IV as needed for severe anxiety every 8 hours. Monitor for side effects/toxicity Holding oral medications including Lipitor, vitamin D, Lasix, potassium. N.p.o. Holding anticoagulation in the setting of possible surgical intervention Further CODE STATUS discussion with family
--- NOTE | 2024-03-26 23:37 | ECG_ITS ---
APPROVED REPORT Exam: Resting ECG HR:118 bpm ECG Measurements Heart Rate 118 AXES QRSd 92 QRS 11 QT 318 T 180 QTc 388 Conclusion ATRIAL FIBRILLATION WITH RAPID VENTRICULAR RESPONSE INCOMPLETE RIGHT BUNDLE BRANCH BLOCK [90+ ms QRS DURATION, TERMINAL R IN V1/V2, 40+ ms S IN I/aVL/V4/V5/V6] ST DEVIATION AND MODERATE T-WAVE ABNORMALITY, CONSIDER ANTEROLATERAL ISCHEMIA [-0.1+ mV T-WAVE IN V3-V6] ABNORMAL ECG UNCONFIRMED REPORT Electronically signed by : Dmitry Francis MD 03/29/2024 10:30:12
--- NOTE | 2024-03-26 23:56 | PC.NURSE ---
patient c/o chest pain under left breast - ekg showed AFib w/ RVR rate 118 - contacted hospitalist - administered dilt IVP per JUL. patient very confused, but able to point to area of pain and easily side tracked.
[2024-03-27] VITALS (8 sets, daily range): BP systolic 116–150; BP diastolic 49–80; PULSE 80–128; RESP 16–20; TEMP 36.6–37.1; O2SAT 91–100; BMI 25.1
--- NOTE | 2024-03-27 02:38 | EXP.ACUTE.PN ---
Subjective *Date: 03/27/24 *Time: 08:42 Interval history: Patient did well overnight. Complaining of some pain at trocar site in left upper abdomen. Otherwise tolerating 1 L oxygen with sats in the 90s. No nausea or vomiting. Patient states she has passed gas but it has not been witnessed. No bowel movements. Medical Exam Vital signs and Labs for Last 24 Hours: Vital Signs Temp Pulse Pulse Resp BP BP Pulse Ox 03/26/24 23:45 97.7 F 118 H 18 150/83 H 100 03/26/24 23:00 03/26/24 21:00 03/26/24 20:45 101 H 16 127/68 100 03/26/24 20:00 2 L 03/26/24 19:45 98.1 F 122 H 16 131/82 97 03/26/24 18:45 97.6 F 121 H 16 114/65 100 03/26/24 17:45 97.6 F 122 H 16 126/75 100 03/26/24 17:37 03/26/24 16:45 97.6 F 104 H 16 121/74 100 03/26/24 16:15 97.6 F 101 H 16 136/85 100 03/26/24 16:00 03/26/24 15:45 97.6 F 118 H 18 135/77 100 03/26/24 15:15 97.6 F 91 H 18 125/63 100 03/26/24 14:45 97.6 F 97 H 18 125/66 100 03/26/24 14:30 97.6 F 107 H 18 132/74 100 03/26/24 14:15 97.6 F 93 H 18 135/83 100 03/26/24 14:00 97.6 F 91 H 18 151/85 H 100 03/26/24 13:52 96 H 18 147/78 H 100 03/26/24 13:42 109 H 18 148/82 H 98 03/26/24 13:32 103 H 18 155/89 H 98 03/26/24 13:27 98.7 F 93 H 14 160/81 H 03/26/24 13:22 103 H 18 138/79 100 03/26/24 09:52 03/26/24 09:00 03/26/24 08:00 03/26/24 08:00 98.9 F 105 H 18 153/95 H 92 L 11/12/24 06:54 03/26/24 05:00 03/26/24 04:00 97.5 F L 98 H 18 151/95 H 94 L 03/26/24 03:00 O2 Del Method O2 Flow Rate 03/26/24 23:45 Nasal Cannula 1 03/26/24 23:00 Nasal Cannula 1 03/26/24 21:00 Nasal Cannula 2 03/26/24 20:45 Nasal Cannula 2 03/26/24 20:00 Nasal Cannula 03/26/24 19:45 Nasal Cannula 2 03/26/24 18:45 Room Air 03/26/24 17:45 Nasal Cannula 2 03/26/24 17:37 Nasal Cannula 2 03/26/24 16:45 Nasal Cannula 2 03/26/24 16:15 Nasal Cannula 2 03/26/24 16:00 Nasal Cannula 2 03/26/24 15:45 Nasal Cannula 2 03/26/24 15:15 Nasal Cannula 2 03/26/24 14:45 Nasal Cannula 2 03/26/24 14:30 Nasal Cannula 2 03/26/24 14:15 Nasal Cannula 2 03/26/24 14:00 Nasal Cannula 2 03/26/24 13:52 Nasal Cannula 03/26/24 13:42 Nasal Cannula 03/26/24 13:32 Nasal Cannula 03/26/24 13:27 03/26/24 13:22 Nasal Cannula 03/26/24 09:52 Nasal Cannula 2 03/26/24 09:00 Room Air 03/26/24 08:00 Nasal Cannula 2 03/26/24 08:00 Room Air 03/26/24 06:54 Room Air 03/26/24 05:00 Room Air 03/26/24 04:00 Nasal Cannula 2 03/26/24 03:00 Room Air Intake and Output 03/26/24 03/26/24 03/27/24 15:59 23:59 07:59 Intake Total 750 / 750 Output Total 0 / 625 225 / 625 175 / 175 Balance 750 / 125 -225 / 125 -175 / -175 Intake: Intake, Total IV Amount 750 / 750 Magnesium Sulfate in Water 2 gm 50 / 50 In 50 ml @ 50 mls/hr IV ONCE ONE Rx#:[id number] Output: Output, Urine Amount 0 / 225 225 / 225 175 / 175 Other: Number of Unmeasured Voids 1 Laboratory Results - last 24 hr 03/23/24 06:20: Hepatitis C Antibody Non reactive 03/26/24 06:05: WBC 6.2, RBC 3.02 L, Hgb 10.4 L, Hct 30.8 L, MCV 102.1 H, MCH 34.4 H, MCHC 33.7, RDW 14.2, Plt Count 208, MPV 8.7, Neut % (Auto) 79.7, Lymph % (Auto) 13.1, [place] % (Auto) 5.8, Eos % (Auto) 1.1, Baso % (Auto) 0.3, Neut # (Auto) 5.0, Lymph # (Auto) 0.8, [place] # (Auto) 0.4, Eos # (Auto) 0.1, Baso # (Auto) 0.0, Sodium 137, Potassium 4.1, Chloride 102, Carbon Dioxide 30, Anion Gap 9.1, BUN 13, Creatinine 0.50 L, Estimated Creat Clear 45, Estimated GFR 118, Est GFR ( Amer) 142 D, Glucose 67 L, Calcium 7.7 L, Magnesium 1.6 D, Total Bilirubin 0.7, AST 27, ALT 12, Alkaline Phosphatase 49, Total Protein 5.2 L, Albumin 2.6 L, Globulin 2.6, Albumin/Globulin Ratio 1.0 L 03/26/24 : Urine Color Yellow, Urine Appearance Clear, Urine pH 5.5, Ur Specific [place] >= 1.030, Urine Protein Negative, Urine Glucose (UA) Negative, Urine Ketones 2+, Urine Blood Negative, Urine Nitrate Negative, Urine Bilirubin 1+ A, Urine Urobilinogen 0.2, Ur Leukocyte Esterase Negative, Urine RBC None, Urine WBC Occasional, Ur Squamous Epith Cells Occasional, Urine Bacteria Trace I & O for Labs for Last 24 Hours: Intake & Output 03/24/24 03/25/24 03/26/24 03/27/24 23:59 23:59 23:59 23:59 Intake Total 1975 0 / 0 750 / 750 Output Total 1150 / 1400 750 / 750 625 / 625 175 / 175 Balance 826 / 576 -750 / -750 125 / 125 -175 / -175 Weight 69.581 kg 69 kg 68.5 kg Constitutional: Present no acute distress, average body habitus, chronically ill appearing and cooperative Head: Present atraumatic and normocephalic ENT: Present normal exam Comment:: NG in right nare Respiratory: Present normal respiratory effort; Absent rhonchi, wheezes or crackles Cardiac: Present Regular Rate Comment:: Irregularly irregular GI: Present soft and tenderness (Mild, diffuse); Absent distention Comments:: Interval increase in bowel sounds; tender to palpation left upper quadrant near trocar site Extremities: Present normal inspection and full ROM Skin: Present intact; Absent erythema Neuro: Present Grossly Intact, alert, awake and moves all extremities Comment:: Oriented to self, pleasantly demented. Assessment and Plan *Assessment and plan (1) Small bowel obstruction: Status: Acute Category: Medical Code(s): K56.609 - Unspecified intestinal obstruction, unspecified as to partial versus complete obstruction (2) Hypokalemia: Status: Acute Category: Medical Code(s): E87.6 - Hypokalemia (3) Hypochloremia: Status: Acute Category: Medical Code(s): E87.8 - Other disorders of electrolyte and fluid balance, not elsewhere classified (4) Hypomagnesemia: Status: Acute Category: Medical Code(s): E83.42 - Hypomagnesemia (5) Dementia: Status: Chronic Category: Medical Code(s): F03.90 - Unspecified dementia, unspecified severity, without behavioral disturbance, psychotic disturbance, mood disturbance, and anxiety (6) Hypertension: Status: Acute Qualifiers: Hypertension type: primary hypertension Qualified Code(s): I10 - Essential (primary) hypertension Category: Medical Code(s): I10 - Essential (primary) hypertension (7) Atrial fibrillation: Status: Chronic Qualifiers: Atrial fibrillation type: longstanding persistent Qualified Code(s): I48.11 - Longstanding persistent atrial fibrillation Category: Medical Code(s): I48.91 - Unspecified atrial fibrillation (8) Anxiety: Status: Chronic Category: Medical Code(s): F41.9 - Anxiety disorder, unspecified (9) Chronic anticoagulation: Status: Chronic Category: Medical Code(s): Z79.01 - assisted (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 History of previous abdominal surgeries. Presents with small bowel obstruction. NG placed in the ER. Discussed case with ER physician, request admission for medical management and surgical evaluation. I agreed to admit for further treatment. High risk for surgery based on her comorbidities. Hemodynamically stable. Necessitating inpatient treatment. Taken for laparoscopic surgery yesterday, adhesions taken down. Showing some improvement overnight. Continues to require inpatient management. Problems addressed as follows: Small bowel obstruction - High-grade obstruction, repeat KUB this morning. - General surgery consulted, s/p diagnostic laparoscopy with laparoscopic lysis of adhesions for freeing of intestinal obstruction. She had evidence of a high-grade partial versus complete obstruction in the distal small bowel secondary to adhesions Creating somewhat of a internal hernia without closed-loop obstruction. Small bowel completely decompressed distally and distended proximally. - Will continue bowel rest for now, we will hold on diet at this time until patient passing gas or having bowel movements. -Continue conservative management per surgery recommendations - Electrolytes and kidney function normal with potassium 4.6, BUN 17, creatinine 0.7. Liver enzymes normal with bilirubin 0.7, AST 31, ALT 14. -Repeat CBC, CMP, mg ordered for the morning. A-fib: -Resume home diltiazem 240 mg p.o. daily; continue to hold on anticoagulation, [place] Anxiety: lorazepam 0.5 mg IV as needed for severe anxiety every 8 hours. Monitor for side effects/toxicity Holding oral medications including Lipitor, vitamin D, Lasix, potassium. N.p.o. Full code at this time
[2024-03-27] MEDS: dilTIAZem 25MG/5ML VIAL 10 MG IV (02:39)
[2024-03-27] MEDS: KETOROLAC 30MG/ML VIAL 30 MG IV (04:45)
--- NOTE | 2024-03-27 07:37 | EXP.SURG.PN ---
Subjective Patient reports: no new complaints Exam Data for Last 24 hours Vital signs and Labs for Last 24 Hours: Temp Pulse Resp BP Pulse Ox O2 Del Method O2 Flow Rate 97.7 F 127 H 18 147/80 H 98 Nasal Cannula 1 03/26/24 23:45 03/27/24 02:40 03/26/24 23:45 03/27/24 02:40 03/27/24 02:40 03/27/24 07:00 03/27/24 07:00 Laboratory Results - last 24 hr 03/26/24 : Urine Color Yellow, Urine Appearance Clear, Urine pH 5.5, Ur Specific [place] >= 1.030, Urine Protein Negative, Urine Glucose (UA) Negative, Urine Ketones 2+, Urine Blood Negative, Urine Nitrate Negative, Urine Bilirubin 1+ A, Urine Urobilinogen 0.2, Ur Leukocyte Esterase Negative, Urine RBC None, Urine WBC Occasional, Ur Squamous Epith Cells Occasional, Urine Bacteria Trace I & O for Last 24 hours: Intake & Output 03/24/24 03/25/24 03/26/24 03/27/24 11:59 11:59 11:59 11:59 Intake Total 1641 / 1641 685 / 685 810 / 810 Output Total 1600 / 1600 250 / 250 900 / 900 400 / 400 Balance 41 / 41 435 / 435 -900 / -900 410 / 410 Weight 153 lb 6.4 oz 152 lb 6 oz 151 lb 0.266 oz Constitutional Constitutional: no acute distress *Routine Respiratory Exam Respiratory: Absent respiratory distress *Routine Abdominal Exam Comments: Dressings intact. No spreading cellulitis. Progress Note: A&P Assessment and plan (1) Small bowel obstruction: Status: Acute Assessment and plan: Overall, stable status post diagnostic laparoscopy with laparoscopic lysis of adhesions (postoperative day 1) Await return of bowel function Sips/chips (no carbonation) (2) Hypokalemia: Status: Acute (3) Hypochloremia: Status: Acute (4) Hypomagnesemia: Status: Acute (5) Dementia: Status: Chronic (6) Hypertension: Status: Acute (7) Atrial fibrillation: Status: Chronic (8) Anxiety: Status: Chronic (9) Chronic anticoagulation: Status: Chronic
[2024-03-27 07:40] LABS: Alanine Aminotransferase 14 U/L (12-78); Albumin Level 2.8 g/dl (3.5-5.0); Albumin/Globulin Ratio 1.2 (1.1-1.8); Alkaline Phosphatase 46 U/L (38-126); Anion Gap 12.6 mEq/L (5-15); Aspartate Amino Transferase 31 U/L (14-36); Bilirubin,Total 0.7 mg/dl (0.2-1.3); Blood Urea Nitrogen 17 mg/dl (7-17); Calcium 7.8 mg/dl (8.4-10.2); Carbon Dioxide 28 mmol/L (22.0-30.0); Chloride 101 mmol/L (98-107); Creatinine Clearance Estimated 45 mL/min (50-200); Estimated Glomerular Filt Rate 80 ml/min (>60); GFR (African American) 96 ML/MIN (>60); Globulin 2.4 g/dL (1.3-3.2); Glucose 89 mg/dl (74-100); Potassium 4.6 mmoL/L (3.5-5.1); Sodium 137 mmol/L (136-145); Total Protein,Serum 5.2 g/dl (6.3-8.2)
--- NOTE | 2024-03-27 08:11 | XR_ITS ---
FINAL REPORT CLINICAL HISTORY: EVALUATE BOWELS POST SURGERY COMPARISON: 03/26/2024 FINDINGS: A single view of the abdomen was obtained. A nasogastric tube is present with its tip in the region in the fundus of the stomach. There are multiple air-filled moderately dilated bowel loops, favor an ileus. These are visually worse since the prior exam. Degenerative changes are noted of the lumbar spine with levoscoliosis. A stent is present in the left abdomen. IMPRESSION: Worsening multiple air-filled dilated bowel loops, favor an ileus. Reviewed, Interpreted and Dictated by Jose Messina III, MD Transcribed by Micaela Nichols Authenticated and [facility]
[2024-03-27] MEDS: dilTIAZem ER 240MG CAPSULE 240 MG PO (09:04)
[2024-03-27] MEDS: 0.9 % SODIUM CHLORIDE 1000ML 500 ML 999 ML IV (09:05)
[2024-03-27] MEDS: 0.9 % SODIUM CHLORIDE 1000ML 1,000 ML 75 ML IV ×2 (09:06→15:57)
--- NOTE | 2024-03-27 09:45 | EXP.ANES.II ---
[facility] Anesthesia Record Part II Anesthesia Record Part II Discharge Time: 13:52 Destination: Second Floor PACU nurse assessment reviewed?: Yes Patient Condition:: Good Anesthesia Complications:: None Swallowing reflex intact?: Yes Airway Patency: Patent Cyanosis?: No Blood Pressure: 147/78 SaO2: 100 Respiratory Rate: 18 Pulse Rate: 96 Temperature: 98.7 F Mental Status: Alert & Oriented Pain level:: 0 Nausea and/or vomitting:: None Intake, IV Amount: 0 Hydration: Adequate
--- NOTE | 2024-03-27 14:47 | PC.NURSE ---
Aox 2 with dementia, up with assistance times one with a walker, 90's on RA and 02 1-2L prn, assistance with turn every two hours, takes meds with no issues, NG still in place R nare marked at 63, 22g R fa sl, Three lap sites 2x2 tegaderm c/d/i, bed alarm active, PT and OT following, sip's and chips otherwise NPO.
[2024-03-27] MEDS: RIVAROXABAN 15MG TABLET 15 MG PO (15:57)
[2024-03-27] MEDS: SODIUM CHLORIDE 0.9% 10ML VIAL 10 ML IV (20:19)
[2024-03-27] MEDS: PANTOPRAZOLE 40MG VIAL 40 MG IV (20:19)
--- NOTE | 2024-03-27 20:24 | PC.NURSE ---
patient reports passing gas about 3 times , active bowel sounds.
[2024-03-28 04:00] VITALS: BP 133/68; PULSE 108; RESP 16; TEMP 36.8; O2SAT 91; BMI 25.1
--- NOTE | 2024-03-28 04:17 | XR_ITS ---
PROCEDURE INFORMATION: Exam: XR Chest Exam date and time: 03/28/2024 4:26 AM Age: 83 years old Clinical indication: Dyspnea; Additional info: SOA TECHNIQUE: Imaging protocol: Radiologic exam of the chest. Views: 1 view. COMPARISON: CR XR CHEST PORTABLE 03/23/2024 3:03 PM FINDINGS: Tubes, catheters and devices: Nasogastric tube in the stomach Lungs: Right upper lobe airspace Pleural spaces: Small pleural effusions Heart/Mediastinum: Cardiomegaly. Bones/joints: Unremarkable. IMPRESSION: 1. Right upper lobe airspace opacity. Findings suspicious for pneumonia 2. Cardiomegaly. 3. Small pleural effusions
--- NOTE | 2024-03-28 04:20 | PC.NURSE ---
patient on 2L NC r/t sats < 90. States she is unable to catch her breath once recovering. CXR ordered. patient has removed 3 IV's tonight by herself.
[2024-03-28] MEDS: FUROSEMIDE 40MG/4ML VIAL 40 MG IV (05:27)
[2024-03-28 06:36] LABS: Basophils % 0.2 % (0.1-2.0); Eosinophils # 0.1 K/mm3 (0.0-0.4); Eosinophils % 0.9 % (0.1-12.0); Hematocrit 30.7 % (37.0-47.0); Hemoglobin 10.1 g/dL (12.2-16.2); Lymphocytes # 0.6 K/mm3 (0.7-4.5); Lymphocytes % 7.9 % (10-50); Mean Corpuscular Hemoglobin 34.7 pg (27.0-31.2); Mean Corpuscular Volume 105.4 fl (81-99); Mean Platelet Volume 8.6 fl (7.4-10.4); Monocytes # 0.4 K/mm3 (0.1-1.0); Monocytes % 4.9 % (1.7-9.3); Neutrophils # 6.7 K/mm3 (1.8-7.8); Platelet Count 243 K/mm3 (142-424); Red Blood Count 2.91 M/mm3 (4.20-5.40); Red Cell Distribution Width 14.5 % (11.5-17.5); White Blood Count 7.8 K/mm3 (4.8-10.8)
[2024-03-28 06:40] LABS: Alanine Aminotransferase 12 U/L (12-78); Albumin Level 2.7 g/dl (3.5-5.0); Albumin/Globulin Ratio 1.2 (1.1-1.8); Alkaline Phosphatase 51 U/L (38-126); Anion Gap 9.1 mEq/L (5-15); Aspartate Amino Transferase 25 U/L (14-36); Bilirubin,Total 0.5 mg/dl (0.2-1.3); Blood Urea Nitrogen 16 mg/dl (7-17); Calcium 7.9 mg/dl (8.4-10.2); Carbon Dioxide 29 mmol/L (22.0-30.0); Chloride 102 mmol/L (98-107); Creatinine Clearance Estimated 45 mL/min (50-200); Estimated Glomerular Filt Rate 95 ml/min (>60); GFR (African American) 115 ML/MIN (>60); Globulin 2.3 g/dL (1.3-3.2); Glucose 81 mg/dl (74-100); Magnesium 1.5 mg/dl (1.6-2.3); Phosphorous 2.2 mg/dl (2.5-4.5); Potassium 4.1 mmoL/L (3.5-5.1); Sodium 136 mmol/L (136-145)
[2024-03-28 06:46] LABS: MANUAL DIFFERENTIAL MANUAL DIFFERENTIAL (MANUAL DIFF)
[2024-03-28 07:14] LABS: Eosinophils % 1 % (0-3); Lymphocytes % 7 % (10-50); Monocytes % 3 % (2-9); Neutrophils % 89 % (42-76); Total Cells Counted 100
[2024-03-28 07:15] LABS: Platelet Estimate Normal; RBC Morphology Normal
[2024-03-28 07:48] VITALS: BP 131/61; PULSE 119; RESP 20; TEMP 37.2; O2SAT 86
--- NOTE | 2024-03-28 07:57 | EXP.SURG.PN ---
Subjective Narrative: No apparent issues. Exam Data for Last 24 hours Vital signs and Labs for Last 24 Hours: Temp Pulse Resp BP Pulse Ox O2 Del Method O2 Flow Rate 98.9 F 119 H 20 131/61 86 L Room Air 2 03/28/24 07:48 03/28/24 07:48 03/28/24 07:48 03/28/24 07:48 03/28/24 07:48 03/28/24 07:48 03/28/24 06:37 Laboratory Results - last 24 hr 03/28/24 06:03: WBC 7.8 D, RBC 2.91 L, Hgb 10.1 L, Hct 30.7 L, MCV 105.4 H, MCH 34.7 H, MCHC 33.0, RDW 14.5, Plt Count 243, MPV 8.6, Neut % (Auto) 86.0 H, Lymph % (Auto) 7.9 L, [place] % (Auto) 4.9, Eos % (Auto) 0.9, Baso % (Auto) 0.2, Neut # (Auto) 6.7, Lymph # (Auto) 0.6 L, [place] # (Auto) 0.4, Eos # (Auto) 0.1, Baso # (Auto) 0.0, Total Counted 100, Neutrophils % (Manual) 89 H, Lymphocytes % (Manual) 7 L, Monocytes % (Manual) 3, Eosinophils % (Manual) 1, Platelet Estimate Normal, RBC Morphology Normal, Sodium 136, Potassium 4.1, Chloride 102, Carbon Dioxide 29, Anion Gap 9.1, BUN 16, Creatinine 0.60, Estimated Creat Clear 45, Estimated GFR 95, Est GFR ( Amer) 115, Glucose 81, Calcium 7.9 L, Phosphorus 2.2 L, Magnesium 1.5 L, Total Bilirubin 0.5, AST 25, ALT 12, Alkaline Phosphatase 51, Total Protein 5.0 L, Albumin 2.7 L, Globulin 2.3, Albumin/Globulin Ratio 1.2 I & O for Last 24 hours: Intake & Output 03/25/24 03/26/24 03/27/24 03/28/24 11:59 11:59 11:59 11:59 Intake Total 685 / 685 1310 / 1310 400 / 400 Output Total 250 / 250 900 / 900 400 / 600 1250 / 1250 Balance 435 / 435 -900 / -900 910 / 710 -850 / -850 Weight 152 lb 6 oz 151 lb 0.266 oz 150 lb 12.739 oz 151 lb 0.266 oz *Routine Abdominal Exam Abdominal: Present soft Progress Note: A&P Assessment and plan (1) Small bowel obstruction: Status: Acute Assessment and plan: Postoperative day #2. DC NG (2) Hypokalemia: Status: Acute (3) Hypochloremia: Status: Acute (4) Hypomagnesemia: Status: Acute (5) Dementia: Status: Chronic (6) Hypertension: Status: Acute (7) Atrial fibrillation: Status: Chronic (8) Anxiety: Status: Chronic (9) Chronic anticoagulation: Status: Chronic
[2024-03-28] MEDS: dilTIAZem ER 240MG CAPSULE 240 MG PO (08:18)
[2024-03-28] MEDS: MAGNESIUM SULFATE IN WATER 2 GM/50 ML PIGGYBACK IV ×2 (08:18→12:53)
[2024-03-28] MEDS: POTASSIUM PHOSPHATE 9 MMOL in 0.9 % SODIUM CHLORIDE 250 ML 63.25 MMOL IV (08:18)
[2024-03-28 09:16] LABS: Vitamin B12 934 pg/mL (239-931)
[2024-03-28 09:19] LABS: Folate 3.41 ng/mL
--- NOTE | 2024-03-28 11:34 | PC.NURSE ---
NG tube out per order. Pt tolerated well.
[2024-03-28 12:00] VITALS: BP 125/85; PULSE 90; RESP 19; TEMP 36.8; O2SAT 94
--- NOTE | 2024-03-28 12:34 | DIET.NUTRFU ---
Reviewed nutritional status today in physician rounds. She has been NPO since admit on 03/23. She is post sx 03/26, post SBO. Today nursing noted rod and active bowel sounds. Waiting to start oral diet after 1st BM. Expressed concerns for malnutrition. NG tube out today. She is receiving NaCl for hydration. Her IV was replaced today after she pulled them out last night. Hydration labs remain WNL. Once oral diet is able to be resumed would benefit from oral supplement to replace calories. Will continue to follow, if unable to start oral diet within 7 days, TPN is recommended.
[2024-03-28] MEDS: 0.9 % SODIUM CHLORIDE 1000ML 1,000 ML 75 ML IV (12:52)
[2024-03-28] MEDS: BISACODYL 10MG SUPP 10 MG RC (14:30)
[2024-03-28 16:00] VITALS: BP 133/60; PULSE 88; RESP 19; TEMP 36.6; O2SAT 94
--- NOTE | 2024-03-28 18:04 | PC.NURSE ---
Pt only alert to self. She needs assistance x1 when transferring. Pt was given a suppository this afternoon and was able to have a small bowel movement. She is still NPO with ice chips. She was given a shower this shift. Family was at bedside and requested to talk to licensed clinical social worker about placement, Madison from care management was notified and met with family. Pt now lying in bed resting, bed alarm on, and call light in reach.
[2024-03-28] MEDS: RIVAROXABAN 15MG TABLET 15 MG PO (18:35)
--- NOTE | 2024-03-28 18:41 | PC.WOUNDNOTE ---
Abscess on bottom
[2024-03-28 19:56] VITALS: BP 144/89; PULSE 86; RESP 16; TEMP 37.6; O2SAT 100
[2024-03-28] MEDS: PANTOPRAZOLE 40MG VIAL 40 MG IV (21:09)
[2024-03-28] MEDS: SODIUM CHLORIDE 0.9% 10ML VIAL 10 ML IV (21:09)
--- NOTE | 2024-03-28 22:35 | EXP.PN ---
Subjective *Date: 03/28/24 *Time: 22:35 Interval history: Had bowel movement with bisacodyl suppository today. Continue bowel rest for now, possible small bowel follow through study tomorrow. Exam Data for Last 24 hours Vital signs and Labs for Last 24 Hours: Temp Pulse Resp BP Pulse Ox O2 Del Method O2 Flow Rate 99.6 F 86 16 144/89 H 100 Nasal Cannula 2 03/28/24 19:56 03/28/24 19:56 03/28/24 19:56 03/28/24 19:56 03/28/24 19:56 03/28/24 19:56 03/28/24 19:56 Laboratory Results - last 24 hr 03/28/24 06:03: WBC 7.8 D, RBC 2.91 L, Hgb 10.1 L, Hct 30.7 L, MCV 105.4 H, MCH 34.7 H, MCHC 33.0, RDW 14.5, Plt Count 243, MPV 8.6, Neut % (Auto) 86.0 H, Lymph % (Auto) 7.9 L, [place] % (Auto) 4.9, Eos % (Auto) 0.9, Baso % (Auto) 0.2, Neut # (Auto) 6.7, Lymph # (Auto) 0.6 L, [place] # (Auto) 0.4, Eos # (Auto) 0.1, Baso # (Auto) 0.0, Total Counted 100, Neutrophils % (Manual) 89 H, Lymphocytes % (Manual) 7 L, Monocytes % (Manual) 3, Eosinophils % (Manual) 1, Platelet Estimate Normal, RBC Morphology Normal, Sodium 136, Potassium 4.1, Chloride 102, Carbon Dioxide 29, Anion Gap 9.1, BUN 16, Creatinine 0.60, Estimated Creat Clear 45, Estimated GFR 95, Est GFR ( Amer) 115, Glucose 81, Calcium 7.9 L, Phosphorus 2.2 L, Magnesium 1.5 L, Total Bilirubin 0.5, AST 25, ALT 12, Alkaline Phosphatase 51, Total Protein 5.0 L, Albumin 2.7 L, Globulin 2.3, Albumin/Globulin Ratio 1.2, Vitamin B12 934 H, Folate 3.41 I & O for Last 24 hours: Intake & Output 03/25/24 03/26/24 03/27/24 03/28/24 23:59 23:59 23:59 23:59 Intake Total 0 / 0 750 / 810 860 / 960 100 / 100 Output Total 750 / 750 625 / 625 825 / 825 1025 / 1025 Balance -750 / -750 125 / 185 35 / 135 -925 / -925 Weight 69 kg 68.5 kg 68.4 kg 68.5 kg Constitutional Constitutional: no acute distress *Routine HEENT Exam Head: Present normocephalic Eye: Present EOMI and PERRL ENT: Present mucous membranes moist *Routine Neck Exam Neck: Present supple; Absent lymphadenopathy *Routine Respiratory Exam Respiratory: Present CTA bilaterally *Routine Cardiovascular Exam Cardiovascular: Present RRR *Routine Abdominal Exam Abdominal: Present soft and tenderness Comments: Mild bowel sounds today. *Routine Extremities Exam Extremities: Absent cyanosis, clubbing or edema *Routine Skin Exam Skin: Present warm; Absent rash *Routine Neurological Exam Neurological: Present alert and oriented X3 Assessment and Plan *Assessment and plan (1) Small bowel obstruction: Status: Acute Category: Medical Code(s): K56.609 - Unspecified intestinal obstruction, unspecified as to partial versus complete obstruction (2) Hypokalemia: Status: Acute Category: Medical Code(s): E87.6 - Hypokalemia (3) Hypochloremia: Status: Acute Category: Medical Code(s): E87.8 - Other disorders of electrolyte and fluid balance, not elsewhere classified (4) Hypomagnesemia: Status: Acute Category: Medical Code(s): E83.42 - Hypomagnesemia (5) Dementia: Status: Chronic Category: Medical Code(s): F03.90 - Unspecified dementia, unspecified severity, without behavioral disturbance, psychotic disturbance, mood disturbance, and anxiety (6) Hypertension: Status: Acute Qualifiers: Hypertension type: primary hypertension Qualified Code(s): I10 - Essential (primary) hypertension Category: Medical Code(s): I10 - Essential (primary) hypertension (7) Atrial fibrillation: Status: Chronic Qualifiers: Atrial fibrillation type: longstanding persistent Qualified Code(s): I48.11 - Longstanding persistent atrial fibrillation Category: Medical Code(s): I48.91 - Unspecified atrial fibrillation (8) Anxiety: Status: Chronic Category: Medical Code(s): F41.9 - Anxiety disorder, unspecified (9) Chronic anticoagulation: Status: Chronic Category: Medical Code(s): Z79.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 History of previous abdominal surgeries. Presents with small bowel obstruction. NG placed in the ER. Discussed case with ER physician, request admission for medical management and surgical evaluation. I agreed to admit for further treatment. High risk for surgery based on her comorbidities. Hemodynamically stable. Necessitating inpatient treatment. Continue medical management. Problems addressed as follows: Small bowel obstruction - High-grade obstruction, KUB shows continued distention of small bowel. Was not improving with bowel rest. - General surgery consulted, s/p 02/25/24 diagnostic laparoscopy with laparoscopic lysis of adhesions for freeing of intestinal obstruction. She had evidence of a high-grade partial versus complete obstruction in the distal small bowel secondary to adhesions Creating somewhat of a internal hernia without closed-loop obstruction. Small bowel completely decompressed distally and distended proximally. - Had bowel movement with bisacodyl suppository today. Will continue bowel rest for the time being and evaluate advancing diet tomorrow. - Spoke to family today, they are very interested in hospice care if patient does not improve in 1-2 days. Jerrod has had SBO for about 2 weeks now. A-fib: -Resume home diltiazem 240 mg p.o. daily; continue to hold on anticoagulation, [place] Anxiety: lorazepam 0.5 mg IV as needed for severe anxiety every 8 hours. Monitor for side effects/toxicity Holding oral medications including Lipitor, vitamin D, Lasix, potassium. N.p.o. Full code at this time
[2024-03-29] VITALS: BP 121/61; PULSE 89; RESP 16; TEMP 37; O2SAT 98
[2024-03-29 04:00] VITALS: BP 142/56; PULSE 93; RESP 18; TEMP 36.9; O2SAT 96; BMI 26.6
[2024-03-29] MEDS: 0.9 % SODIUM CHLORIDE 1000ML 1,000 ML 75 ML IV ×2 (06:49→19:17)
--- NOTE | 2024-03-29 06:51 | PC.NURSE ---
Patient has rested throughout the night. Alert to self. Purewick in place. No BM this shift. Abdomen soft. Call light in reach. Bed alarm on.
[2024-03-29 06:53] LABS: Alanine Aminotransferase 10 U/L (12-78); Albumin Level 2.3 g/dl (3.5-5.0); Alkaline Phosphatase 46 U/L (38-126); Anion Gap 7.7 mEq/L (5-15); Aspartate Amino Transferase 21 U/L (14-36); Bilirubin,Total 0.6 mg/dl (0.2-1.3); Blood Urea Nitrogen 12 mg/dl (7-17); Calcium 7.4 mg/dl (8.4-10.2); Carbon Dioxide 33 mmol/L (22.0-30.0); Chloride 100 mmol/L (98-107); Creatinine Clearance Estimated 48 mL/min (50-200); Estimated Glomerular Filt Rate 95 ml/min (>60); GFR (African American) 115 ML/MIN (>60); Globulin 2.3 g/dL (1.3-3.2); Glucose 76 mg/dl (74-100); Potassium 3.7 mmoL/L (3.5-5.1); Sodium 137 mmol/L (136-145); Total Protein,Serum 4.6 g/dl (6.3-8.2)
--- NOTE | 2024-03-29 07:07 | P.PN_ITS ---
Subjective Narrative: Patient resting Exam Data for Last 24 hours Vital signs and Labs for Last 24 Hours: Temp Pulse Resp BP Pulse Ox O2 Del Method O2 Flow Rate 98.5 F 93 H 18 142/56 H 96 Nasal Cannula 2 03/29/24 04:00 03/29/24 04:00 03/29/24 04:00 03/29/24 04:00 03/29/24 04:00 03/29/24 06:50 03/29/24 06:50 Laboratory Results - last 24 hr 03/28/24 06:03: Total Counted 100, Neutrophils % (Manual) 89 H, Lymphocytes % (Manual) 7 L, Monocytes % (Manual) 3, Eosinophils % (Manual) 1, Platelet Estimate Normal, RBC Morphology Normal, Vitamin B12 934 H, Folate 3.41 03/29/24 05:35: Sodium 137, Potassium 3.7, Chloride 100, Carbon Dioxide 33 H, An ion Gap 7.7, BUN 12, Creatinine 0.60, Estimated Creat Clear 48, Estimated GFR 95, Est GFR ( Amer) 115, Glucose 76, Calcium 7.4 L, Total Bilirubin 0.6, AST 21, ALT 10 L, Alkaline Phosphatase 46, Total Protein 4.6 L, Albumin 2.3 L D, Globulin 2.3, Albumin/Globulin Ratio 1.0 L I & O for Last 24 hours: Intake & Output 03/26/24 03/27/24 03/28/24 03/29/24 11:59 11:59 11:59 11:59 Intake Total 1310 / 1310 400 / 400 1003 / 1003 Output Total 900 / 900 400 / 600 1575 / 1575 100 / 100 Balance -900 / -900 910 / 710 -1175 / -1175 903 / 903 Weight 151 lb 0.266 oz 150 lb 12.739 oz 151 lb 0.266 oz 160 lb 2 oz Constitutional Constitutional: no acute distress Progress Note: A&P Assessment and plan (1) Small bowel obstruction: Status: Acute Assessment and plan: Start clear liquids (2) Hypokalemia: Status: Acute (3) Hypochloremia: Status: Acute (4) Hypomagnesemia: Status: Acute (5) Dementia: Status: Chronic (6) Hypertension: Status: Acute (7) Atrial fibrillation: Status: Chronic (8) Anxiety: Status: Chronic (9) Chronic anticoagulation: Status: Chronic
[2024-03-29 08:00] VITALS: BP 141/87; PULSE 88; RESP 18; TEMP 37.1; O2SAT 96
[2024-03-29] MEDS: dilTIAZem ER 240MG CAPSULE 240 MG PO (09:12)
--- NOTE | 2024-03-29 10:15 | DIET.NUTRFU ---
Addendum entered by Shelly Brewster RD, LD 03/29/24 10:27: Spoke to patient and family present will start milkshake when diet advanced to full liquids, she likes all flavors she also likes pepsi when diet allowed to have carbonated beverages. Original Note: BM noted and clear liquids started, will address supplement needs when diet advanced to full liquids. Suppository was given yesterday and provider plans to give again today. Patient is nutritionally depleted will start supplements as diet is advanced. Plans to go to SNF recommend the supplements continue during SNF stay.
[2024-03-29] MEDS: BISACODYL 10MG SUPP 10 MG RC (11:22)
[2024-03-29 12:00] VITALS: BP 146/78; PULSE 98; RESP 18; TEMP 37.1; O2SAT 100
[2024-03-29 16:00] VITALS: BP 138/80; PULSE 88; RESP 16; TEMP 36.6; O2SAT 94
--- NOTE | 2024-03-29 17:07 | EXP.PN ---
Subjective *Date: 03/29/24 *Time: 17:07 Interval history: Patient is feeling well today. Tolerating clear liquid diets. Abdominal pain resolved. Will give another suppository today. Exam Data for Last 24 hours Vital signs and Labs for Last 24 Hours: Temp Pulse Resp BP Pulse Ox O2 Del Method O2 Flow Rate 98 F 88 16 138/80 94 L Room Air 2 03/29/24 16:00 03/29/24 16:00 03/29/24 16:00 03/29/24 16:00 03/29/24 16:00 03/29/24 15:00 03/29/24 12:00 Laboratory Results - last 24 hr 03/29/24 05:35: Sodium 137, Potassium 3.7, Chloride 100, Carbon Dioxide 33 H, Anion Gap 7.7, BUN 12, Creatinine 0.60, Estimated Creat Clear 48, Estimated GFR 95, Est GFR ( Amer) 115, Glucose 76, Calcium 7.4 L, Total Bilirubin 0.6, AST 21, ALT 10 L, Alkaline Phosphatase 46, Total Protein 4.6 L, Albumin 2.3 L D, Globulin 2.3, Albumin/Globulin Ratio 1.0 L I & O for Last 24 hours: Intake & Output 03/26/24 03/27/24 03/28/24 03/29/24 23:59 23:59 23:59 23:59 Intake Total 750 / 810 860 / 960 100 / 100 1623 / 1623 Output Total 625 / 625 825 / 825 1025 / 1025 0 / 0 Balance 125 / 185 35 / 135 -925 / -925 1623 / 1623 Weight 68.5 kg 68.4 kg 68.5 kg 72.631 kg Constitutional Constitutional: no acute distress *Routine HEENT Exam Head: Present normocephalic Eye: Present EOMI and PERRL ENT: Present mucous membranes moist *Routine Neck Exam Neck: Present supple; Absent lymphadenopathy *Routine Respiratory Exam Respiratory: Present CTA bilaterally *Routine Cardiovascular Exam Cardiovascular: Present RRR *Routine Abdominal Exam Abdominal: Present soft, normoactive bowel sounds and tenderness Comments: Improved bowel sounds today. *Routine Extremities Exam Extremities: Absent cyanosis, clubbing or edema *Routine Skin Exam Skin: Present warm; Absent rash *Routine Neurological Exam Neurological: Present alert and oriented X3 Assessment and Plan *Assessment and plan (1) Small bowel obstruction: Status: Acute Category: Medical Code(s): K56.609 - Unspecified intestinal obstruction, unspecified as to partial versus complete obstruction (2) Hypokalemia: Status: Acute Category: Medical Code(s): E87.6 - Hypokalemia (3) Hypochloremia: Status: Acute Category: Medical Code(s): E87.8 - Other disorders of electrolyte and fluid balance, not elsewhere classified (4) Hypomagnesemia: Status: Acute Category: Medical Code(s): E83.42 - Hypomagnesemia (5) Dementia: Status: Chronic Category: Medical Code(s): F03.90 - Unspecified dementia, unspecified severity, without behavioral disturbance, psychotic disturbance, mood disturbance, and anxiety (6) Hypertension: Status: Acute Qualifiers: Hypertension type: primary hypertension Qualified Code(s): I10 - Essential (primary) hypertension Category: Medical Code(s): I10 - Essential (primary) hypertension (7) Atrial fibrillation: Status: Chronic Qualifiers: Atrial fibrillation type: longstanding persistent Qualified Code(s): I48.11 - Longstanding persistent atrial fibrillation Category: Medical Code(s): I48.91 - Unspecified atrial fibrillation (8) Anxiety: Status: Chronic Category: Medical Code(s): F41.9 - Anxiety disorder, unspecified (9) Chronic anticoagulation: Status: Chronic Category: Medical Code(s): Z79.01 - 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 History of previous abdominal surgeries. Presents with small bowel obstruction. NG placed in the ER. Discussed case with ER physician, request admission for medical management and surgical evaluation. I agreed to admit for further treatment. High risk for surgery based on her comorbidities. Hemodynamically stable. Necessitating inpatient treatment. Continue medical management. Problems addressed as follows: Small bowel obstruction - High-grade obstruction, KUB shows continued distention of small bowel. Was not improving with bowel rest. - General surgery consulted, s/p 02/25/24 diagnostic laparoscopy with laparoscopic lysis of adhesions for freeing of intestinal obstruction. She had evidence of a high-grade partial versus complete obstruction in the distal small bowel secondary to adhesions Creating somewhat of a internal hernia without closed-loop obstruction. Small bowel completely decompressed distally and distended proximally. - Had bowel movement with bisacodyl suppository on 03/29/2024. ? Started clear liquid diet today, tolerating well. Plan for full liquid diet tomorrow if patient continues to tolerate well. ? Ordered another suppository today, patient feels like she has to have a bowel movement but unable to. A-fib: -Continue home diltiazem 240 mg p.o. daily; continue to hold on anticoagulation, [place] Anxiety: lorazepam 0.5 mg IV as needed for severe anxiety every 8 hours. Monitor for side effects/toxicity Holding oral medications including Lipitor, vitamin D, Lasix, potassium. N.p.o. Full code at this time
[2024-03-29] MEDS: RIVAROXABAN 15MG TABLET 15 MG PO (18:09)
--- NOTE | 2024-03-29 18:17 | PC.NURSE ---
patient has been alert to self and place throughout shift. she has been up to the chair this shift. had a smear mucous BM on the BSC this shift. purewick in place, bed alarm on.
[2024-03-29 20:00] VITALS: BP 138/73; PULSE 89; RESP 18; TEMP 36.8; O2SAT 99
[2024-03-29] MEDS: PANTOPRAZOLE 40MG VIAL 40 MG IV (20:21)
[2024-03-29] MEDS: MELATONIN 5MG TABLET 10 MG PO (20:21)
[2024-03-29] MEDS: FOLIC ACID 1MG TABLET 1 MG PO (20:21)
[2024-03-30] VITALS: BP 109/57; PULSE 64; RESP 16; TEMP 36.5; O2SAT 98
[2024-03-30 04:00] VITALS: BP 111/47; PULSE 78; RESP 17; TEMP 36.6; O2SAT 99; BMI 27.5
[2024-03-30 06:11] LABS: Basophils % 0.3 % (0.1-2.0); Eosinophils # 0.1 K/mm3 (0.0-0.4); Eosinophils % 1.3 % (0.1-12.0); Hematocrit 27.3 % (37.0-47.0); Lymphocytes # 0.5 K/mm3 (0.7-4.5); Lymphocytes % 7.1 % (10-50); Mean Corpuscular HGB Conc 32.9 g/dL (31.8-35.4); Mean Corpuscular Hemoglobin 34.5 pg (27.0-31.2); Mean Corpuscular Volume 104.7 fl (81-99); Mean Platelet Volume 8.3 fl (7.4-10.4); Monocytes # 0.3 K/mm3 (0.1-1.0); Monocytes % 4.2 % (1.7-9.3); Neutrophils # 6.4 K/mm3 (1.8-7.8); Neutrophils % 87.1 % (37.0-80.0); Platelet Count 214 K/mm3 (142-424); Red Blood Count 2.61 M/mm3 (4.20-5.40); Red Cell Distribution Width 14.3 % (11.5-17.5); White Blood Count 7.3 K/mm3 (4.8-10.8)
[2024-03-30 06:14] LABS: MANUAL DIFFERENTIAL MANUAL DIFFERENTIAL (MANUAL DIFF)
[2024-03-30 06:16] LABS: Alanine Aminotransferase 9 U/L (12-78); Albumin Level 2.2 g/dl (3.5-5.0); Alkaline Phosphatase 46 U/L (38-126); Aspartate Amino Transferase 21 U/L (14-36); Bilirubin,Total 0.7 mg/dl (0.2-1.3); Blood Urea Nitrogen 7 mg/dl (7-17); Calcium 7.2 mg/dl (8.4-10.2); Carbon Dioxide 34 mmol/L (22.0-30.0); Chloride 99 mmol/L (98-107); Creatinine Clearance Estimated 50 mL/min (50-200); Estimated Glomerular Filt Rate 118 ml/min (>60); GFR (African American) 142 ML/MIN (>60); Globulin 2.2 g/dL (1.3-3.2); Glucose 84 mg/dl (74-100); Potassium 3.3 mmoL/L (3.5-5.1); Total Protein,Serum 4.4 g/dl (6.3-8.2)
[2024-03-30 06:28] LABS: Anion Gap 4.3 mEq/L (5-15); Sodium 134 mmol/L (136-145)
[2024-03-30 06:38] LABS: Lymphocytes % 1 % (10-50); Macrocytosis 1+; Monocytes % 3 % (2-9); Neutrophils % 96 % (42-76); Ovalocytes 1+; Platelet Estimate Normal; Total Cells Counted 100
[2024-03-30 07:48] VITALS: BP 134/64; PULSE 90; RESP 16; TEMP 36.7; O2SAT 98
[2024-03-30 08:09] LABS: Magnesium 1.3 mg/dl (1.6-2.3)
[2024-03-30] MEDS: KCl 20mEq/100ml 100 ML 50 MEQ IV ×2 (08:52→11:17)
[2024-03-30] MEDS: CALCIUM GLUC IN NACL, ISO-OSM 2 GM/100 ML BAG IV (08:53)
[2024-03-30] MEDS: 0.9 % SODIUM CHLORIDE 1000ML 1,000 ML 75 ML IV (08:53)
[2024-03-30] MEDS: dilTIAZem ER 240MG CAPSULE 240 MG PO (09:06)
[2024-03-30] MEDS: FOLIC ACID 1MG TABLET 1 MG PO (09:06)
--- NOTE | 2024-03-30 09:38 | EXP.SURG.PN ---
Subjective Patient reports: bowel movement Exam Data for Last 24 hours Vital signs and Labs for Last 24 Hours: Temp Pulse Resp BP Pulse Ox O2 Del Method O2 Flow Rate 98.1 F 90 16 134/64 98 Room Air 2 03/30/24 07:48 03/30/24 07:48 03/30/24 07:48 03/30/24 07:48 03/30/24 07:48 03/30/24 07:48 03/30/24 07:00 Laboratory Results - last 24 hr 03/30/24 05:34: WBC 7.3, RBC 2.61 L, Hgb 9.0 L, Hct 27.3 L, MCV 104.7 H, MCH 34.5 H, MCHC 32.9, RDW 14.3, Plt Count 214, MPV 8.3, Neut % (Auto) 87.1 H, Lymph % (Auto) 7.1 L, [place] % (Auto) 4.2, Eos % (Auto) 1.3, Baso % (Auto) 0.3, Neut # (Auto) 6.4, Lymph # (Auto) 0.5 L, [place] # (Auto) 0.3, Eos # (Auto) 0.1, Baso # (Auto) 0.0, Total Counted 100, Neutrophils % (Manual) 96 H, Lymphocytes % (Manual) 1 L, Monocytes % (Manual) 3, Platelet Estimate Normal, Macrocytosis 1+, Ovalocytes 1+, Sodium 134 L, Potassium 3.3 L, Chloride 99, Carbon Dioxide 34 H, Anion Gap 4.3 L, BUN 7 D, Creatinine 0.50 L, Estimated Creat Clear 50, Estimated GFR 118, Est GFR ( Amer) 142 D, Glucose 84, Calcium 7.2 L, Magnesium 1.3 L D, Total Bilirubin 0.7, AST 21, ALT 9 L, Alkaline Phosphatase 46, Total Protein 4.4 L, Albumin 2.2 L, Globulin 2.2, Albumin/Globulin Ratio 1.0 L I & O for Last 24 hours: Intake & Output 03/27/24 03/28/24 03/29/24 03/30/24 11:59 11:59 11:59 11:59 Intake Total 1310 / 1310 400 / 400 1003 / 1003 2525 / 2525 Output Total 400 / 600 1575 / 1575 100 / 100 0 / 0 Balance 910 / 710 -1175 / -1175 903 / 903 2525 / 2525 Weight 150 lb 12.739 oz 151 lb 0.266 oz 160 lb 2 oz 165 lb 6 oz Constitutional Constitutional: no acute distress *Routine Respiratory Exam Respiratory: Absent respiratory distress *Routine Cardiovascular Exam Cardiovascular: Absent tachycardia *Routine Abdominal Exam Abdominal: Present soft Comments: Incisions healing without evidence of infection Progress Note: A&P Assessment and plan (1) Small bowel obstruction: Status: Acute Assessment and plan: Overall, doing well postoperative day 4 status post laparoscopic lysis of adhesions. Bowel function noted. Continue to slowly advance diet (soft diet ordered for later today)
[2024-03-30] MEDS: MAGNESIUM SULFATE IN WATER 2 GM/50 ML PIGGYBACK IV ×2 (11:17→13:34)
[2024-03-30 12:00] VITALS: BP 135/64; PULSE 79; RESP 18; TEMP 36.4; O2SAT 97
[2024-03-30 16:00] VITALS: BP 118/58; PULSE 77; RESP 15; TEMP 36.6; O2SAT 99
[2024-03-30] MEDS: RIVAROXABAN 15MG TABLET 15 MG PO (16:50)
--- NOTE | 2024-03-30 18:11 | EXP.PN ---
Subjective *Date: 03/30/24 *Time: 18:11 Interval history: ? Advanced to soft diet today with good toleration. No abdominal pain, nausea/vomiting. Passing gas. ? Will continue to advance diet to regular as tolerated. Medically stable to be discharged back to [facility]. Exam Data for Last 24 hours Vital signs and Labs for Last 24 Hours: Temp Pulse Resp BP Pulse Ox O2 Del Method O2 Flow Rate 97.8 F 77 15 118/58 L 99 Room Air 2 03/30/24 16:00 03/30/24 16:00 03/30/24 16:00 03/30/24 16:00 03/30/24 16:00 03/30/24 17:00 03/30/24 15:00 Laboratory Results - last 24 hr 03/30/24 05:34: WBC 7.3, RBC 2.61 L, Hgb 9.0 L, Hct 27.3 L, MCV 104.7 H, MCH 34.5 H, MCHC 32.9, RDW 14.3, Plt Count 214, MPV 8.3, Neut % (Auto) 87.1 H, Lymph % (Auto) 7.1 L, [place] % (Auto) 4.2, Eos % (Auto) 1.3, Baso % (Auto) 0.3, Neut # (Auto) 6.4, Lymph # (Auto) 0.5 L, [place] # (Auto) 0.3, Eos # (Auto) 0.1, Baso # (Auto) 0.0, Total Counted 100, Neutrophils % (Manual) 96 H, Lymphocytes % (Manual) 1 L, Monocytes % (Manual) 3, Platelet Estimate Normal, Macrocytosis 1+, Ovalocytes 1+, Sodium 134 L, Potassium 3.3 L, Chloride 99, Carbon Dioxide 34 H, Anion Gap 4.3 L, BUN 7 D, Creatinine 0.50 L, Estimated Creat Clear 50, Estimated GFR 118, Est GFR ( Amer) 142 D, Glucose 84, Calcium 7.2 L, Magnesium 1.3 L D, Total Bilirubin 0.7, AST 21, ALT 9 L, Alkaline Phosphatase 46, Total Protein 4.4 L, Albumin 2.2 L, Globulin 2.2, Albumin/Globulin Ratio 1.0 L I & O for Last 24 hours: Intake & Output 11/13/03/28/24 03/29/24 03/30/24 23:59 23:59 23:59 23:59 Intake Total 860 / 960 100 / 100 2858 / 3528 1590 / 1590 Output Total 825 / 825 1025 / 1025 0 / 0 0 / 0 Balance 35 / 135 -925 / -925 2858 / 3528 1590 / 1590 Weight 68.4 kg 68.5 kg 72.631 kg 75.013 kg Constitutional Constitutional: no acute distress *Routine HEENT Exam Head: Present normocephalic Eye: Present EOMI and PERRL ENT: Present mucous membranes moist *Routine Neck Exam Neck: Present supple; Absent lymphadenopathy *Routine Respiratory Exam Respiratory: Present CTA bilaterally *Routine Cardiovascular Exam Cardiovascular: Present RRR *Routine Abdominal Exam Abdominal: Present soft, normoactive bowel sounds and tenderness *Routine Extremities Exam Extremities: Absent cyanosis, clubbing or edema *Routine Skin Exam Skin: Present warm; Absent rash *Routine Neurological Exam Neurological: Present alert and oriented X3 Assessment and Plan *Assessment and plan (1) Small bowel obstruction: Status: Acute Category: Medical Code(s): K56.609 - Unspecified intestinal obstruction, unspecified as to partial versus complete obstruction (2) Hypokalemia: Status: Acute Category: Medical Code(s): E87.6 - Hypokalemia (3) Hypochloremia: Status: Acute Category: Medical Code(s): E87.8 - Other disorders of electrolyte and fluid balance, not elsewhere classified (4) Hypomagnesemia: Status: Acute Category: Medical Code(s): E83.42 - Hypomagnesemia (5) Dementia: Status: Chronic Category: Medical Code(s): F03.90 - Unspecified dementia, unspecified severity, without behavioral disturbance, psychotic disturbance, mood disturbance, and anxiety (6) Hypertension: Status: Acute Qualifiers: Hypertension type: primary hypertension Qualified Code(s): I10 - Essential (primary) hypertension Category: Medical Code(s): I10 - Essential (primary) hypertension (7) Atrial fibrillation: Status: Chronic Qualifiers: Atrial fibrillation type: longstanding persistent Qualified Code(s): I48.11 - Longstanding persistent atrial fibrillation Category: Medical Code(s): I48.91 - Unspecified atrial fibrillation (8) Anxiety: Status: Chronic Category: Medical Code(s): F41.9 - Anxiety disorder, unspecified (9) Chronic anticoagulation: Status: Chronic Category: Medical Code(s): Z79.01 - 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 History of previous abdominal surgeries. Presents with small bowel obstruction. NG placed in the ER. Discussed case with ER physician, request admission for medical management and surgical evaluation. I agreed to admit for further treatment. High risk for surgery based on her comorbidities. Hemodynamically stable. Necessitating inpatient treatment. Continue medical management. Problems addressed as follows: Small bowel obstruction - High-grade obstruction, KUB shows continued distention of small bowel. Was not improving with bowel rest. - General surgery consulted, s/p 02/25/24 diagnostic laparoscopy with laparoscopic lysis of adhesions for freeing of intestinal obstruction. She had evidence of a high-grade partial versus complete obstruction in the distal small bowel secondary to adhesions Creating somewhat of a internal hernia without closed-loop obstruction. Small bowel completely decompressed distally and distended proximally. - Had bowel movement with bisacodyl suppository on 03/29/2024, and has continued to have bowel movement since. ? Advanced to soft diet today with good toleration. No abdominal pain, nausea/vomiting. Passing gas. ? Will continue to advance diet to regular as tolerated. Medically stable to be discharged back to [facility]. A-fib: -Continue home diltiazem 240 mg p.o. daily; continue to hold on anticoagulation, Lindsey Anxiety: lorazepam 0.5 mg IV as needed for severe anxiety every 8 hours. Monitor for side effects/toxicity Holding oral medications including Lipitor, vitamin D, Lasix, potassium. N.p.o. Full code at this time
[2024-03-30 20:00] VITALS: BP 125/61; PULSE 66; RESP 18; TEMP 37.1; O2SAT 96
[2024-03-30] MEDS: SODIUM CHLORIDE 0.9% 10ML VIAL 10 ML IV (20:19)
[2024-03-30] MEDS: PANTOPRAZOLE 40MG VIAL 40 MG IV (20:19)
[2024-03-31] VITALS: BP 126/73; PULSE 95; RESP 16; TEMP 37.1; O2SAT 97
[2024-03-31] MEDS: 0.9 % SODIUM CHLORIDE 1000ML 1,000 ML 75 ML IV ×2 (00:52→13:40)
[2024-03-31 04:00] VITALS: BP 136/69; PULSE 94; RESP 16; TEMP 36.9; O2SAT 94; BMI 26.6
--- NOTE | 2024-03-31 04:20 | PC.NURSE ---
83 yo female pt is A/O X 2. She has been confused at times throughout shift. Pt has denied pain or discomfort or SOA throughout shift. + BS but no BM tonight. Purwick in place, bed alarm on. VS WNL for pt
[2024-03-31 07:07] LABS: Basophils % 0.1 % (0.1-2.0); Eosinophils % 0.5 % (0.1-12.0); Hematocrit 27.9 % (37.0-47.0); Hemoglobin 9.3 g/dL (12.2-16.2); Lymphocytes # 0.6 K/mm3 (0.7-4.5); Lymphocytes % 7.7 % (10-50); Mean Corpuscular HGB Conc 33.2 g/dL (31.8-35.4); Mean Corpuscular Hemoglobin 34.7 pg (27.0-31.2); Mean Corpuscular Volume 104.4 fl (81-99); Mean Platelet Volume 8.6 fl (7.4-10.4); Monocytes # 0.4 K/mm3 (0.1-1.0); Neutrophils # 7.2 K/mm3 (1.8-7.8); Neutrophils % 86.7 % (37.0-80.0); Platelet Count 230 K/mm3 (142-424); Red Blood Count 2.67 M/mm3 (4.20-5.40); Red Cell Distribution Width 14.5 % (11.5-17.5); White Blood Count 8.3 K/mm3 (4.8-10.8)
[2024-03-31 07:09] LABS: MANUAL DIFFERENTIAL MANUAL DIFFERENTIAL (MANUAL DIFF)
[2024-03-31 07:14] LABS: Albumin Level 2.2 g/dl (3.5-5.0); Chloride 99 mmol/L (98-107)
[2024-03-31 07:15] LABS: Potassium 3.3 mmoL/L (3.5-5.1); Sodium 134 mmol/L (136-145)
[2024-03-31 07:17] LABS: Alanine Aminotransferase 9 U/L (12-78); Alkaline Phosphatase 49 U/L (38-126); Anion Gap 8.3 mEq/L (5-15); Aspartate Amino Transferase 18 U/L (14-36); Bilirubin,Total 0.6 mg/dl (0.2-1.3); Blood Urea Nitrogen 5 mg/dl (7-17); Carbon Dioxide 30 mmol/L (22.0-30.0); Creatinine Clearance Estimated 48 mL/min (50-200); Estimated Glomerular Filt Rate 118 ml/min (>60); GFR (African American) 142 ML/MIN (>60); Globulin 2.3 g/dL (1.3-3.2); Total Protein,Serum 4.5 g/dl (6.3-8.2)
[2024-03-31 07:18] LABS: Calcium 7.3 mg/dl (8.4-10.2); Glucose 101 mg/dl (74-100)
[2024-03-31 07:33] LABS: Lymphocytes % 4 % (10-50); Monocytes % 4 % (2-9); Neutrophils % 92 % (42-76); Total Cells Counted 100
[2024-03-31 07:34] LABS: Platelet Estimate Normal; RBC Morphology Normal
[2024-03-31 08:00] VITALS: BP 128/67; PULSE 98; RESP 16; TEMP 36.6; O2SAT 97
[2024-03-31] MEDS: dilTIAZem ER 240MG CAPSULE 240 MG PO (08:28)
[2024-03-31] MEDS: FOLIC ACID 1MG TABLET 1 MG PO (08:28)
--- NOTE | 2024-03-31 09:49 | XR_ITS ---
PROCEDURE INFORMATION: Exam: XR Abdomen Exam date and time: 03/31/2024 12:12 PM Age: 83 years old Clinical indication: Abdominal pain TECHNIQUE: Imaging protocol: Radiologic exam of the abdomen. Views: Frontal supine view of the abdomen. 1 View. COMPARISON: CR XR KUB 03/26/2024 1:48 AM FINDINGS: Tubes, catheters and devices: Previous enteric tube has been discontinued. Mild increased conspicuity of diffuse gas in large and small bowel. Gastrointestinal tract: See Tubes, catheters and devices finding. Intraperitoneal space: No distinct abnormal dilatation. No distinct pneumoperitoneum. Bones/joints: Unremarkable. IMPRESSION: Previous enteric tube has been discontinued. Mild increased conspicuity of diffuse gas in large and small bowel.
--- NOTE | 2024-03-31 10:10 | EXP.SURG.PN ---
Subjective Patient reports: bowel movement Narrative: Complaining of abdominal pain (cramping). Exam Data for Last 24 hours Vital signs and Labs for Last 24 Hours: Temp Pulse Resp BP Pulse Ox O2 Del Method O2 Flow Rate 97.8 F 98 H 16 128/67 97 Nasal Cannula 2 03/31/24 08:00 03/31/24 08:00 03/31/24 08:00 03/31/24 08:00 03/31/24 08:00 03/31/24 08:00 03/31/24 08:00 FiO2 28 03/30/24 21:17 Laboratory Results - last 24 hr 03/31/24 06:15: WBC 8.3, RBC 2.67 L, Hgb 9.3 L, Hct 27.9 L, MCV 104.4 H, MCH 34.7 H, MCHC 33.2, RDW 14.5, Plt Count 230, MPV 8.6, Neut % (Auto) 86.7 H, Lymph % (Auto) 7.7 L, [place] % (Auto) 5.0, Eos % (Auto) 0.5, Baso % (Auto) 0.1, Neut # (Auto) 7.2, Lymph # (Auto) 0.6 L, [place] # (Auto) 0.4, Eos # (Auto) 0.0, Baso # (Auto) 0.0, Total Counted 100, Neutrophils % (Manual) 92 H, Lymphocytes % (Manual) 4 L, Monocytes % (Manual) 4, Platelet Estimate Normal, RBC Morphology Normal, Sodium 134 L, Potassium 3.3 L, Chloride 99, Carbon Dioxide 30, Anion Gap 8.3, BUN 5 L D, Creatinine 0.50 L, Estimated Creat Clear 48, Estimated GFR 118, Est GFR ( Amer) 142, Glucose 101 H, Calcium 7.3 L, Total Bilirubin 0.6, AST 18, ALT 9 L, Alkaline Phosphatase 49, Total Protein 4.5 L, Albumin 2.2 L, Globulin 2.3, Albumin/Globulin Ratio 1.0 L I & O for Last 24 hours: Intake & Output 03/28/24 03/29/24 03/30/24 03/31/24 11:59 11:59 11:59 11:59 Intake Total 400 / 400 1003 / 1003 2845 / 2845 2155 / 2155 Output Total 1575 / 1575 100 / 100 0 / 0 500 / 500 Balance -1175 / -1175 903 / 903 2845 / 2845 1655 / 1655 Weight 151 lb 0.266 oz 160 lb 2 oz 165 lb 6 oz 159 lb 11.2 oz Constitutional Constitutional: no acute distress *Routine Cardiovascular Exam Cardiovascular: Present tachycardia Comments: Minimal tachycardia (heart rate still under 100) *Routine Abdominal Exam Abdominal: Present soft and tenderness (Mild to moderate tenderness globally) Comments: Incision healing without evidence of infection. Progress Note: A&P Assessment and plan (1) Small bowel obstruction: Status: Acute Assessment and plan: Overall, doing fairly well postoperative day 5 status post laparoscopic lysis of adhesions. Bowel function noted. Some increased abdominal cramping over the past 12 to 24 hours. Continue physical therapy Continue soft diet for now Continue serial abdominal exams (2) Dementia: Status: Chronic (3) Atrial fibrillation: Status: Chronic (4) Chronic anticoagulation: Status: Chronic
[2024-03-31 10:39] VITALS: BP 121/55; BP 132/64; BP 136/71
--- NOTE | 2024-03-31 11:14 | PC.NURSE ---
bladder scan at 0957 showed 317 mls.
[2024-03-31 12:21] LABS: Adenovirus,PCR Not Detected (NotDetected); Bordetella Pertussis Not Detected (NotDetected); Chlamydophila Pneumoniae, PCR Not Detected (NotDetected); Coronavirus 19, PCR Not Detected (NotDetected); Coronavirus 229E Not Detected (NotDetected); Coronavirus NL63 Not Detected (NotDetected); Coronavirus OC43 Not Detected (NotDetected); Coronovirus HKU1,PCR Not Detected (NotDetected); Human Metapneumovirus Not Detected (NotDetected); Influenza A, PCR Not Detected (NotDetected); Influenza AH1, 2009 Not Detected (NotDetected); Influenza AH1, PCR Not Detected (NotDetected); Influenza AH3,PCR Not Detected (NotDetected); Influenza B, PCR Not Detected (NotDetected); Mycoplasma Pneumoniae, PCR Not Detected (NotDetected); Parainfluenza 1, PCR Not Detected (NotDetected); Parainfluenza 2, PCR Not Detected (NotDetected); Parainfluenza 3, PCR Not Detected (NotDetected); Parainfluenza 4, PCR Not Detected (NotDetected); Respiratory Syncytial Virus Not Detected (NotDetected); Rhinovirus/Enterovirus Not Detected (NotDetected)
[2024-03-31] MEDS: SIMETHICONE 80MG CHEWABLE TABLET 80 MG PO ×2 (14:19→20:25)
[2024-03-31 15:16] LABS: Magnesium 1.6 mg/dl (1.6-2.3)
[2024-03-31 15:39] VITALS: BP 142/61; PULSE 75; RESP 16; TEMP 36.8; O2SAT 98
--- NOTE | 2024-03-31 16:39 | PC.NURSE ---
patient is alert to self and remains on 2LNC. pt appears a bit weaker this shift, she is still having frequent loose BM. she has c/o of abdominal cramps, MD aware and currently no symptoms persist. she has rested most of the shift. no complaints at this time. call light within reach.
[2024-03-31] MEDS: RIVAROXABAN 15MG TABLET 15 MG PO (16:43)
--- NOTE | 2024-03-31 18:01 | PC.NURSE ---
MD notified of potassium level earlier in shift, electrolyte replacement protocol in place.
[2024-03-31 20:00] VITALS: BP 122/66; PULSE 94; RESP 18; TEMP 37.3; O2SAT 95
[2024-03-31] MEDS: PANTOPRAZOLE 40MG VIAL 40 MG IV (20:25)
--- NOTE | 2024-03-31 22:01 | EXP.PN ---
Subjective *Date: 03/31/24 *Time: 22:01 Exam Data for Last 24 hours Vital signs and Labs for Last 24 Hours: Temp Pulse Resp BP Pulse Ox O2 Del Method O2 Flow Rate 99.1 F 94 H 18 122/66 95 Nasal Cannula 2 03/31/24 20:00 03/31/24 20:00 03/31/24 20:00 03/31/24 20:00 03/31/24 20:00 03/31/24 21:00 03/31/24 21:00 FiO2 28 03/31/24 18:29 Laboratory Results - last 24 hr 03/31/24 06:15: WBC 8.3, RBC 2.67 L, Hgb 9.3 L, Hct 27.9 L, MCV 104.4 H, MCH 34.7 H, MCHC 33.2, RDW 14.5, Plt Count 230, MPV 8.6, Neut % (Auto) 86.7 H, Lymph % (Auto) 7.7 L, [place] % (Auto) 5.0, Eos % (Auto) 0.5, Baso % (Auto) 0.1, Neut # (Auto) 7.2, Lymph # (Auto) 0.6 L, [place] # (Auto) 0.4, Eos # (Auto) 0.0, Baso # (Auto) 0.0, Total Counted 100, Neutrophils % (Manual) 92 H, Lymphocytes % (Manual) 4 L, Monocytes % (Manual) 4, Platelet Estimate Normal, RBC Morphology Normal, Sodium 134 L, Potassium 3.3 L, Chloride 99, Carbon Dioxide 30, Anion Gap 8.3, BUN 5 L D, Creatinine 0.50 L, Estimated Creat Clear 48, Estimated GFR 118, Est GFR ( Amer) 142, Glucose 101 H, Calcium 7.3 L, Total Bilirubin 0.6, AST 18, ALT 9 L, Alkaline Phosphatase 49, Total Protein 4.5 L, Albumin 2.2 L, Globulin 2.3, Albumin/Globulin Ratio 1.0 L 03/31/24 06:17: Magnesium 1.6 D 03/31/24 09:43: Chlamy pneumoniae PCR Not detected, Adenovirus (PCR) Not detected, B. pertussis DNA (PCR) Not detected, Coronavirus OC43 (PCR) Not detected, Coronavirus HKU1 (PCR) Not detected, Coronavirus 229E (PCR) Not detected, SARS-CoV-2 (PCR) Not detected, Coronavirus NL63 (PCR) Not detected, Human Metapneumovir PCR Not detected, Influenza A (H1) PCR Not detected, Influ A (H1N1/09) PCR Not detected, Influenza A (H3) PCR Not detected, Influenza Type A (PCR) Not detected, Influenza Type B (PCR) Not detected, M. pneumoniae (PCR) Not detected, Parainfluenza 1 (PCR) Not detected, Parainfluenza 2 (PCR) Not detected, Parainfluenza 3 (PCR) Not detected, Parainfluenza 4 (PCR) Not detected, RSV (PCR) Not detected, Entero/Rhino (PCR) Not detected I & O for Last 24 hours: Intake & Output 03/28/24 03/29/24 03/30/24 03/31/24 23:59 23:59 23:59 23:59 Intake Total 100 / 100 2858 / 3528 2770 / 3145 1979 Output Total 1025 / 1025 0 / 0 500 / 500 0 / 0 Balance -925 / -925 2858 / 3528 2270 / 2645 1979 Weight 68.5 kg 72.631 kg 75.013 kg 72.439 kg Constitutional Constitutional: no acute distress *Routine HEENT Exam Head: Present normocephalic Eye: Present EOMI and PERRL ENT: Present mucous membranes moist *Routine Neck Exam Neck: Present supple; Absent lymphadenopathy *Routine Respiratory Exam Respiratory: Present CTA bilaterally *Routine Cardiovascular Exam Cardiovascular: Present RRR *Routine Abdominal Exam Abdominal: Present soft, normoactive bowel sounds and tenderness *Routine Extremities Exam Extremities: Absent cyanosis, clubbing or edema *Routine Skin Exam Skin: Present warm; Absent rash *Routine Neurological Exam Neurological: Present alert and oriented X3 Assessment and Plan *Assessment and plan (1) Small bowel obstruction: Status: Acute Category: Medical Code(s): K56.609 - Unspecified intestinal obstruction, unspecified as to partial versus complete obstruction (2) Hypokalemia: Status: Acute Category: Medical Code(s): E87.6 - Hypokalemia (3) Hypochloremia: Status: Acute Category: Medical Code(s): E87.8 - Other disorders of electrolyte and fluid balance, not elsewhere classified (4) Hypomagnesemia: Status: Acute Category: Medical Code(s): E83.42 - Hypomagnesemia (5) Dementia: Status: Chronic Category: Medical Code(s): F03.90 - Unspecified dementia, unspecified severity, without behavioral disturbance, psychotic disturbance, mood disturbance, and anxiety (6) Hypertension: Status: Acute Qualifiers: Hypertension type: primary hypertension Qualified Code(s): I10 - Essential (primary) hypertension Category: Medical Code(s): I10 - Essential (primary) hypertension (7) Atrial fibrillation: Status: Chronic Qualifiers: Atrial fibrillation type: longstanding persistent Qualified Code(s): I48.11 - Longstanding persistent atrial fibrillation Category: Medical Code(s): I48.91 - Unspecified atrial fibrillation (8) Anxiety: Status: Chronic Category: Medical Code(s): F41.9 - Anxiety disorder, unspecified (9) Chronic anticoagulation: Status: Chronic Category: Medical Code(s): 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 History of previous abdominal surgeries. Presents with small bowel obstruction. NG placed in the ER. Discussed case with ER physician, request admission for medical management and surgical evaluation. I agreed to admit for further treatment. High risk for surgery based on her comorbidities. Hemodynamically stable. Necessitating inpatient treatment. Continue medical management. Problems addressed as follows: Small bowel obstruction - High-grade obstruction, KUB shows continued distention of small bowel. Was not improving with bowel rest. - General surgery consulted, s/p 02/25/24 diagnostic laparoscopy with laparoscopic lysis of adhesions for freeing of intestinal obstruction. She had evidence of a high-grade partial versus complete obstruction in the distal small bowel secondary to adhesions Creating somewhat of a internal hernia without closed-loop obstruction. Small bowel completely decompressed distally and distended proximally. - Had bowel movement with bisacodyl suppository on 03/29/2024, and has continued to have bowel movement since. ? Continues to tolerate soft diet today. Had some abdominal pain in the morning, self resolved. KUB showed diffuse gas, started simethicone. No nausea/vomiting. Passing gas, having multiple bowel movements. ? Medically stable to be discharged back to [facility]. A-fib: -Continue home diltiazem 240 mg p.o. daily; continue to hold on anticoagulation, Lindsey Anxiety: lorazepam 0.5 mg IV as needed for severe anxiety every 8 hours. Monitor for side effects/toxicity
[2024-04-01] VITALS: BP 119/51; PULSE 95; RESP 16; TEMP 37.1; O2SAT 98
[2024-04-01] MEDS: 0.9 % SODIUM CHLORIDE 1000ML 1,000 ML 75 ML IV (02:45)
[2024-04-01 04:00] VITALS: BP 130/64; PULSE 95; RESP 16; TEMP 36.9; O2SAT 97; BMI 26.6
--- NOTE | 2024-04-01 04:34 | PC.NURSE ---
Pt remains confused, alert and oriented X 1. She has slept most of shift with no complaints. 02 at 2 liters per nc in place for comfort. She was medicated with Simethicone X 1 during shift due to complaints of cramping, Pt did have BM. VS have been stable through shift
[2024-04-01] MEDS: SIMETHICONE 80MG CHEWABLE TABLET 80 MG PO (05:22)
[2024-04-01 07:04] LABS: Chloride 99 mmol/L (98-107)
[2024-04-01 07:05] LABS: Albumin Level 2.2 g/dl (3.5-5.0); Potassium 3.2 mmoL/L (3.5-5.1); Sodium 132 mmol/L (136-145)
[2024-04-01 07:07] LABS: Blood Urea Nitrogen 6 mg/dl (7-17); Creatinine Clearance Estimated 48 mL/min (50-200); Estimated Glomerular Filt Rate 118 ml/min (>60); GFR (African American) 142 ML/MIN (>60)
[2024-04-01 07:08] LABS: Alanine Aminotransferase 8 U/L (12-78); Alkaline Phosphatase 58 U/L (38-126); Anion Gap 11.2 mEq/L (5-15); Aspartate Amino Transferase 29 U/L (14-36); Bilirubin,Total 0.7 mg/dl (0.2-1.3); Calcium 7.2 mg/dl (8.4-10.2); Carbon Dioxide 25 mmol/L (22.0-30.0); Globulin 2.2 g/dL (1.3-3.2); Glucose 85 mg/dl (74-100); Total Protein,Serum 4.4 g/dl (6.3-8.2)
[2024-04-01 07:40] VITALS: BP 119/63; PULSE 100; RESP 17; TEMP 36.6; O2SAT 98
[2024-04-01 07:55] LABS: Basophils % 0.2 % (0.1-2.0); Eosinophils # 0.1 K/mm3 (0.0-0.4); Eosinophils % 0.8 % (0.1-12.0); Hematocrit 29.5 % (37.0-47.0); Hemoglobin 9.7 g/dL (12.2-16.2); Lymphocytes # 0.8 K/mm3 (0.7-4.5); Lymphocytes % 10.7 % (10-50); Mean Corpuscular HGB Conc 32.9 g/dL (31.8-35.4); Mean Corpuscular Hemoglobin 33.9 pg (27.0-31.2); Mean Corpuscular Volume 103.2 fl (81-99); Mean Platelet Volume 8.9 fl (7.4-10.4); Monocytes # 0.5 K/mm3 (0.1-1.0); Monocytes % 7.1 % (1.7-9.3); Neutrophils % 81.2 % (37.0-80.0); Platelet Count 239 K/mm3 (142-424); Red Blood Count 2.86 M/mm3 (4.20-5.40); Red Cell Distribution Width 14.6 % (11.5-17.5); White Blood Count 7.4 K/mm3 (4.8-10.8)
[2024-04-01 08:00] VITALS: O2SAT 86
[2024-04-01] MEDS: POTASSIUM CHLORIDE 20MEQ/15ML UDC 40 MEQ PO (09:35)
[2024-04-01] MEDS: MAGNESIUM OXIDE 400MG TABLET 400 MG PO (09:35)
[2024-04-01] MEDS: dilTIAZem ER 240MG CAPSULE 240 MG PO (09:36)
[2024-04-01] MEDS: FOLIC ACID 1MG TABLET 1 MG PO (09:36)
--- NOTE | 2024-04-01 09:46 | FL_ITS ---
PROCEDURE INFORMATION: Exam: FL Small Intestine Exam date and time: 04/01/2024 10:30 AM Age: 83 years old Clinical indication: Symptoms: Admitted for sbo, got better, worse this morning TECHNIQUE: Imaging protocol: Radiologic examination, small intestine, includes multiple serial images. Fluoroscopy is included if performed. COMPARISON: CR XR KUB 03/31/2024 12:12 PM RADIATION DOSE METRICS: Fluoroscopy time (seconds): Not provided Number of fluoro spot images: 8 Reference air kerma (BONITA): Not provided. FINDINGS: Optometry Assistant: Unremarkable gas pattern Intestine: There is mild fluid distension of small bowel loops measuring up to 3.9 cm. No air-fluid levels to suggest mechanical obstruction. Normal small bowel fold pattern. No stricture was identified. Total contrast transit to terminal ileum is 2 hours 40 minutes IMPRESSION: Mild fluid distension of small bowel loops which can represent ileus in the appropriate clinical context.
[2024-04-01] MEDS: ACETAMINOPHEN 325MG/10.15ML UDC 650 MG PO (11:14)
[2024-04-01 12:00] VITALS: BP 124/55; PULSE 106; RESP 20; TEMP 37.1; O2SAT 96
[2024-04-01 12:18] LABS: Adenovirus F 40/41, stool Not Detected (NotDetected); Astrovirus Not Detected (NotDetected); Campylobacter Not Detected (NotDetected); Cryptosporidium Not Detected (NotDetected); Cyclospora Cayetanesis Not Detected (NotDetected); Entamoeba histolytica Not Detected (NotDetected); Enteroaggregative E coli Not Detected (NotDetected); Enteropathogenic E coli Not Detected (NotDetected); Enterotoxigenic E coli Not Detected (NotDetected); Giardia lamblia Not Detected (NotDetected); Norovirus Not Detected (NotDetected); Plesimonas Shigalloides, PCR Not Detected (NotDetected); Rotavirus A Not Detected (NotDetected); Salmonella, PCR Not Detected (NotDetected); Sapovirus Not Detected (NotDetected); Shiga-like toxin E coli Not Detected (NotDetected); Shigella Enterovasive E coli Not Detected (NotDetected); Vibrio Cholerae Not Detected (NotDetected); Vibrio, PCR Not Detected (NotDetected); Yersinia Entercolitica, PCR Not Detected (NotDetected)
[2024-04-01] MEDS: DIATRIZOATE MEGLUMINE(GASTROGRAFIN) 66%-10% 120ML 360 ML PO (12:52)
--- NOTE | 2024-04-01 15:10 | EXP.DC.SUM ---
General Admission date:: 03/23/24 HPI HPI HPI: Thien is an 83-year-old female with dementia and anxiety and coagulate and who presented to the ER because of concern for bowel obstruction. Recently admitted to [facility] last week for 2 days due to bowel obstruction. Was decompressed with NG, surgery offered but family declined at that time. History of previous abdominal surgeries. Returned back to her nursing facility and developed recurrent nausea, vomiting, periumbilical pain. Been worse over the past 2 days. Afebrile. Stable on room air. On arrival today, found to have elevated CRP, electrolyte disturbances and mild dehydration. CT obtained showing diffuse distended small bowel loops with significant fluid and definitive transition point. Surgery consulted, NG was placed in the ER. Medicine consulted for admission and further management. Per review, patient was having bilious emesis. Unable to tolerate p.o. medications or nutrition. Pain severe around her umbilicus. Afebrile. Patient pleasant but unable to give much history other than pain. Feeling better since placement of NG. Hospital Course Hospital Course Hospital Course: 83-year-old female with history of dementia, A-fib, on anticoagulation. History of previous abdominal surgeries. Presents with small bowel obstruction. NG placed in the ER. Discussed case with ER physician, request admission for medical management and surgical evaluation. I agreed to admit for further treatment. High risk for surgery based on her comorbidities. Hemodynamically stable. Necessitating inpatient treatment. Continue medical management. Problems addressed as follows: #Small bowel obstruction - Initially had high-grade obstruction, KUB shows continued distention of small bowel. Was not improving with bowel rest. Had been going on for approximately 2 weeks prior to admission with hospitalizations. - General surgery consulted, s/p 02/25/24 diagnostic laparoscopy with laparoscopic lysis of adhesions for freeing of intestinal obstruction. She had evidence of a high-grade partial versus complete obstruction in the distal small bowel secondary to adhesions Creating somewhat of a internal hernia without closed-loop obstruction. - Had bowel movement with bisacodyl suppository on 03/29/2024, and has continued to have bowel movements since. - Patient was advanced to soft diet, but has had waxing and waning and abdominal distress. Repeat small bowel series today suggests mild ileus. Patient has bowel sounds and is having bowel movements. ? Spoke to son extensively about goals of care, and son would like to transition to hospice care if patient's symptoms and decreased oral toleration continue at nursing facility. From this standpoint, patient is medically stable for discharge. Patient will benefit from slowly advancing from full liquid diet at nursing facility in the setting of mild ileus. #Hypokalemia #Hypomagnesemia ? Magnesium oxide 400 mg daily, potassium 40 mEq daily. #A-fib - Continue home diltiazem 240 mg p.o. daily, Xarelto 50 mg. Exam Data for Last 24 hours Vital signs and Labs for Last 24 Hours: Temp Pulse Resp BP Pulse Ox O2 Del Method O2 Flow Rate 98.8 F 106 H 20 124/55 L 96 Nasal Cannula 2 04/01/24 12:00 04/01/24 12:00 04/01/24 12:00 04/01/24 12:00 04/01/24 12:00 04/01/24 13:00 04/01/24 13:00 FiO2 28 03/31/24 18:29 Laboratory Results - last 24 hr 03/31/24 06:17: Magnesium 1.6 D 04/01/24 05:36: WBC 7.4, RBC 2.86 L, Hgb 9.7 L, Hct 29.5 L, MCV 103.2 H, MCH 33.9 H, MCHC 32.9, RDW 14.6, Plt Count 239, MPV 8.9, Neut % (Auto) 81.2 H, Lymph % (Auto) 10.7, [facility] % (Auto) 7.1, Eos % (Auto) 0.8, Baso % (Auto) 0.2, Neut # (Auto) 6.0, Lymph # (Auto) 0.8, [facility] # (Auto) 0.5, Eos # (Auto) 0.1, Baso # (Auto) 0.0, Sodium 132 L, Potassium 3.2 L, Chloride 99, Carbon Dioxide 25, Anion Gap 11.2, BUN 6 L, Creatinine 0.50 L, Estimated Creat Clear 48, Estimated GFR 118, Est GFR ( Amer) 142, Glucose 85, Calcium 7.2 L, Total Bilirubin 0.7, AST 29 D, ALT 8 L, Alkaline Phosphatase 58, Total Protein 4.4 L, Albumin 2.2 L, Globulin 2.2, Albumin/Globulin Ratio 1.0 L I & O for Last 24 hours: Intake & Output 03/29/24 03/30/24 03/31/24 04/01/24 23:59 23:59 23:59 23:59 Intake Total 2858 / 3528 2770 / 3145 1979 375 / 375 Output Total 0 / 0 500 / 500 0 / 0 0 / 0 Balance 2858 / 3528 2270 / 2645 1979 / 375 Weight 72.631 kg 75.013 kg 72.439 kg 72.439 kg Constitutional Constitutional: no acute distress *Routine HEENT Exam Head: Present normocephalic Eye: Present EOMI and PERRL ENT: Present mucous membranes moist *Routine Neck Exam Neck: Present supple; Absent lymphadenopathy *Routine Respiratory Exam Respiratory: Present CTA bilaterally *Routine Cardiovascular Exam Cardiovascular: Present RRR *Routine Abdominal Exam Abdominal: Present soft, normoactive bowel sounds and tenderness *Routine Extremities Exam Extremities: Absent cyanosis, clubbing or edema *Routine Skin Exam Skin: Present warm; Absent rash *Routine Neurological Exam Neurological: Present alert and oriented X3 Results Data Completed and Pending Labs on day of discharge: Labs from last 24 hours 04/01/24 03/31/24 05:36 06:17 WBC 7.4 RBC 2.86 L Hgb 9.7 L Hct 29.5 L MCV 103.2 H MCH 33.9 H MCHC 32.9 RDW 14.6 Plt Count 239 MPV 8.9 Neut % (Auto) 81.2 H Lymph % (Auto) 10.7 [facility] % (Auto) 7.1 Eos % (Auto) 0.8 Baso % (Auto) 0.2 Neut # (Auto) 6.0 Lymph # (Auto) 0.8 [facility] # (Auto) 0.5 Eos # (Auto) 0.1 Baso # (Auto) 0.0 Sodium 132 L Potassium 3.2 L Chloride 99 Carbon Dioxide 25 Anion Gap 11.2 BUN 6 L Creatinine 0.50 L Estimated Creat Clear 48 Estimated GFR 118 Est GFR ( Amer) 142 Glucose 85 Calcium 7.2 L Magnesium 1.6 D Total Bilirubin 0.7 AST 29 D ALT 8 L Alkaline Phosphatase 58 Total Protein 4.4 L Albumin 2.2 L Globulin 2.2 Albumin/Globulin Ratio 1.0 L DS: Diagnosis Discharge Diagnosis (1) Small bowel obstruction: Status: Acute Code(s): K56.609 - Unspecified intestinal obstruction, unspecified as to partial versus complete obstruction (2) Hypokalemia: Status: Acute Code(s): E87.6 - Hypokalemia (3) Hypochloremia: Status: Acute Code(s): E87.8 - Other disorders of electrolyte and fluid balance, not elsewhere classified (4) Hypomagnesemia: Status: Acute Code(s): E83.42 - Hypomagnesemia (5) Dementia: Status: Chronic Code(s): F03.90 - Unspecified dementia, unspecified severity, without behavioral disturbance, psychotic disturbance, mood disturbance, and anxiety (6) Hypertension: Status: Acute Code(s): I10 - Essential (primary) hypertension Qualifiers: Hypertension type: primary hypertension Qualified Code(s): I10 - Essential (primary) hypertension (7) Atrial fibrillation: Status: Chronic Code(s): I48.91 - Unspecified atrial fibrillation Qualifiers: Atrial fibrillation type: longstanding persistent Qualified Code(s): I48.11 - Longstanding persistent atrial fibrillation (8) Anxiety: Status: Chronic Code(s): F41.9 - Anxiety disorder, unspecified (9) Chronic anticoagulation: Status: Chronic 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 Home Medications and Allergies Home Medications ?Medication ?Instructions ?Recorded ?Confirmed ?Type alprazolam 0.25 mg tablet (Xanax) 0.25 mg PO BID 03/23/24 03/24/24 History cholecalciferol (vitamin D3) 125 125 mcg PO DAILY 03/23/24 03/24/24 History mcg (5,000 unit) tablet (Vitamin D3) diltiazem HCl 240 mg 240 mg PO DAILY 03/23/24 03/23/24 History capsule,extended release 24 hr potassium chloride 20 mEq 20 meq PO DAILY 03/23/24 03/24/24 History tablet,extended release(part/cryst) acetaminophen 325 mg tablet 975 mg PO Q6HP PRN Mild Pain 03/24/24 03/24/24 History (Tylenol) (Scale Score 1-4) rivaroxaban 20 mg tablet (Xarelto) 20 mg PO QPMWITHMEAL 03/24/24 03/24/24 History folic acid 1 mg tablet 1 mg PO DAILY 30 days #30 tabs 04/01/24 Rx magnesium oxide 400 mg (241.3 mg 400 mg PO DAILY 30 days #30 tabs 04/01/24 Rx magnesium) tablet potassium chloride 20 mEq/15 mL 40 meq (30 mL) PO DAILY 30 days 04/01/24 Rx oral liquid #900 mL simethicone 80 mg chewable tablet 80 mg PO Q6HP PRN Gas Pain And 04/01/24 Rx (Gas Relief 80 (simethicone)) Discomfort 30 days #30 tabs New Prescriptions to Start Prescriptions: folic acid Anton Jasmine magnesium oxide Anton Jasmine potassium chloride Anton Jasmine simethicone [Gas Relief 80 (simethicone)] Anton Jasmine Allergies Allergy/AdvReac Type Severity Reaction Status Date / Time adhesive tape Allergy Unknown Unknown Unverified 04/01/24 07:47 allergy reaction chlorhexidine Allergy Unknown Verified 03/23/24 11:57 allergy reaction codeine Allergy Unknown Verified 03/23/24 11:57 allergy reaction ofloxacin Allergy Unknown Verified 03/23/24 11:57 allergy reaction Penicillins Allergy Unknown Verified 03/23/24 11:57 allergy reaction sulfamethoxazole (From Allergy Unknown Verified 03/23/24 11:57 Bactrim) allergy reaction trimethoprim (From Bactrim) Allergy Unknown Verified 03/23/24 11:57 allergy reaction Discharge Plan Disposition Patient Disposition: [facility] Discharge Order Discharge Orders: Discharge Order (Routine); Ordered 04/01/24 Ordered By: Anton Jasmine Follow up Plan Follow up with: Jose Hernandez MD [Staff Physician] - Enter time for follow up Prescriptions/Medication Reconciliation: New potassium chloride 20 mEq/15 mL Liquid 40 meq PO DAILY 30 Days Qty: 900 0RF magnesium oxide 400 mg (241.3 mg magnesium) Tablet 400 mg PO DAILY 30 Days Qty: 30 0RF folic acid 1 mg Tablet 1 mg PO DAILY 30 Days Qty: 30 0RF simethicone [Gas Relief 80 (simethicone)] 80 mg Tablet,Chewable 80 mg PO Q6HP PRN (Reason: Gas Pain And Discomfort) 30 Days Qty: 30 0RF Continued alprazolam [Xanax] 0.25 mg Tablet 0.25 mg PO BID potassium chloride 20 mEq Tablet,Er Particles/Crystals 20 meq PO DAILY cholecalciferol (vitamin D3) [Vitamin D3] 125 mcg (5,000 unit) Tablet 125 mcg PO DAILY diltiazem HCl 240 mg capsule,extended release 24hr 240 mg PO DAILY Patient Comments: TAKE ONE (1) CAPSULE BY MOUTH EVERY DAY FOR ATRIAL FIBRILLATION acetaminophen [Tylenol] 325 mg Tablet 975 mg PO Q6HP PRN (Reason: Mild Pain (Scale Score 1-4)) Xarelto 20 mg Tablet 20 mg PO QPMWITHMEAL Discontinued furosemide 20 mg Tablet 20 mg PO DAILY atorvastatin 40 mg tablet 40 mg PO HS Patient Comments: TAKE ONE (1) TABLET EVERY DAY BY ORAL ROUTE IN THE EVENING FOR 90 DAYS. Problem Reconciliation Problems Reviewed?: Yes Patient Discharge Instructions Patient Instructions: DI for Small Bowel Obstruction, DI for Exploratory Laparotomy, DI for Surgical Site Infection, Catheter-Associated Urinary Tract Infection Print Language: [place]itanian Providers Primary Care Provider: Bao Cox Admit Provider: Papito Viera Attending Provider: Papito Viera
--- NOTE | 2024-04-01 15:17 | EXP.SURG.PN ---
Subjective Narrative: Patient has complained of some abdominal pain although history difficult due to significant dementia. Not eating much. Small bowel follow-through ordered today. Subsequently has had multiple bowel movements. Exam Data for Last 24 hours Vital signs and Labs for Last 24 Hours: Temp Pulse Resp BP Pulse Ox O2 Del Method O2 Flow Rate 98.8 F 106 H 20 124/55 L 96 Nasal Cannula 2 04/01/24 12:00 04/01/24 12:00 04/01/24 12:00 04/01/24 12:00 04/01/24 12:00 04/01/24 13:00 04/01/24 13:00 FiO2 28 03/31/24 18:29 Laboratory Results - last 24 hr 03/31/24 06:17: Magnesium 1.6 D 04/01/24 05:36: WBC 7.4, RBC 2.86 L, Hgb 9.7 L, Hct 29.5 L, MCV 103.2 H, MCH 33.9 H, MCHC 32.9, RDW 14.6, Plt Count 239, MPV 8.9, Neut % (Auto) 81.2 H, Lymph % (Auto) 10.7, [place] % (Auto) 7.1, Eos % (Auto) 0.8, Baso % (Auto) 0.2, Neut # (Auto) 6.0, Lymph # (Auto) 0.8, [place] # (Auto) 0.5, Eos # (Auto) 0.1, Baso # (Auto) 0.0, Sodium 132 L, Potassium 3.2 L, Chloride 99, Carbon Dioxide 25, Anion Gap 11.2, BUN 6 L, Creatinine 0.50 L, Estimated Creat Clear 48, Estimated GFR 118, Est GFR ( Amer) 142, Glucose 85, Calcium 7.2 L, Total Bilirubin 0.7, AST 29 D, ALT 8 L, Alkaline Phosphatase 58, Total Protein 4.4 L, Albumin 2.2 L, Globulin 2.2, Albumin/Globulin Ratio 1.0 L I & O for Last 24 hours: Intake & Output 03/30/24 03/31/24 04/01/24 04/02/24 11:59 11:59 11:59 11:59 Intake Total 2845 / 2845 2155 / 2155 1979 / 1979 Output Total 0 / 0 500 / 500 0 / 0 0 / 0 Balance 2845 / 2845 1655 / 1655 1979 / 1979 0 / 0 Weight 165 lb 6 oz 159 lb 11.2 oz 159 lb 11.21 oz *Routine Abdominal Exam Abdominal: Present soft; Absent tenderness Progress Note: A&P Assessment and plan (1) Small bowel obstruction: Status: Acute Assessment and plan: Upper GI with small bowel follow-through consistent with ileus. Recommend diet as tolerated. No need for surgical intervention at this time. (2) Hypokalemia: Status: Acute (3) Hypochloremia: Status: Acute (4) Hypomagnesemia: Status: Acute (5) Dementia: Status: Chronic (6) Hypertension: Status: Acute (7) Atrial fibrillation: Status: Chronic (8) Anxiety: Status: Chronic (9) Chronic anticoagulation: Status: Chronic
[2024-04-01 16:28] LABS: Clostridium Difficile A/B, PCR Detected (NotDetected)
== END 2024-04-01 16:45 | DRG 336 ==
LOC: ER 12:11 → 2ND 15:13
PROVIDERS: Student in an Organized Health Care Education/Training Program; Surgery; Admitting Provider Internal Medicine Adolescent Medicine; Emergency Provider Student in an Organized Health Care Education/Training Program; PCP Family Medicine; Visit Provider Internal Medicine Adolescent Medicine
PROC: (CPT 49000; principal; 2024-03-26 12:00)
DX: K56.52 Intestinal adhesions [bands] with complete obstruction (principal); I48.11 Longstanding persistent atrial fibrillation; F03.90 Unspecified dementia, unspecified severity, without behavioral disturbance, psychotic disturbance, mood disturbance, and anxiety; I10 Essential (primary) hypertension; E87.6 Hypokalemia; E87.8 Other disorders of electrolyte and fluid balance, not elsewhere classified; F41.9 Anxiety disorder, unspecified; Z79.01 Long term (current) use of anticoagulants; Z79.899 Other long term (current) drug therapy; E55.9 Vitamin D deficiency, unspecified; B96.89 Other specified bacterial agents as the cause of diseases classified elsewhere
CPT/HCPCS: 36415; 71045; 74018; 74021; 74174; 74250; 80053; 81001; 82607; 82746; 82803; 83605; 83690; 83735; 84100; 85007; 85025; 86140; 86803; 87389; 87506; 87633; 93005; 93306; 97110; 97162; 97166; 97530; 99285; J3490; J0131; J1100; J1885; J1940; J2060; J2405; J3010; J3475; J3480; J7030; Q9963; Q9967